=== PATIENT | male | born 1930 | race Caucasian/White ===

== ENCOUNTER → 2016-06-08 | Outpatient (CLI) | payer BC ==
[~2016-06-08] MED LIST: ASPI81TA28 PO; CHOL100010 PO; CRFUDL PO; DIGO0.1267 PO; EAR DROPS OTR; ISOS120T5 PO; LISI5TAB PO; MAGN311C3 PO; PANT40TA PO; SIMV40TA2 PO; TRAM-10 PO
[2016-06-08 11:01] LABS: BASO % 0.4 %; BASO ABS # 0.04 K/uL (0-0.2); COMPLETE YES; EOS % 5.1 %; HEMATOCRIT 47.5 % (42-52); IG% 0.6 %; LYMPH % 17.7 %; LYMPH ABS # 1.76 K/uL (1.2-3.4); MEAN CELL VOLUME 94.8 fL (80-100); MEAN CORPUSCULAR HEMOGLOBIN 31.7 pg (25-34); MEAN CORPUSCULAR HGB CONC 33.5 g/dl (32-36); MEAN PLATELET VOLUME 10.7 fL (7.4-10.4); MONO % 11.8 %; NEUT % 64.4 %; PLATELET COUNT 205 K/uL (130-400); RED BLOOD COUNT 5.01 M/uL (4.7-6.1); WHITE BLOOD COUNT 9.95 K/uL (4.8-10.8)
[2016-06-08 11:13] LABS: BLOOD UREA NITROGEN 29 mg/dl (7-18); BUN/CREATININE RATIO 16.9 (10-20); CALCIUM 8.9 mg/dl (8.5-10.1); CARBON DIOXIDE 28 mmol/L (21-32); CHLORIDE 104 mmol/L (98-107); GLUCOSE 107 mg/dl (70-99); SODIUM 140 mmol/L (136-145)
== END | disposition home or self-care (01) ==
LOC: C.LABBC 08:03
PROVIDERS: ATTEND Internal Medicine Geriatric Medicine
DX: I12.9 Hypertensive chronic kidney disease with stage 1 through stage 4 chronic kidney disease, or unspecified chronic kidney disease (principal); M19.90 Unspecified osteoarthritis, unspecified site; E55.9 Vitamin D deficiency, unspecified; C67.9 Malignant neoplasm of bladder, unspecified; N18.3 Chronic kidney disease, stage 3 (moderate); I48.2 Chronic atrial fibrillation

== ENCOUNTER → 2016-11-01 | Outpatient (CLI) | payer BC ==
[~2016-11-01] MED LIST changes: -PANT40TA PO
== END | disposition home or self-care (01) ==
LOC: C.PATHSPEC 10:43
PROVIDERS: ATTEND Urology
DX: C67.9 Malignant neoplasm of bladder, unspecified (principal)

== ENCOUNTER → 2016-11-06 | Outpatient (CLI) | payer BC ==
[2016-11-06 13:34] LABS: BASO % 0.5 %; BASO ABS # 0.04 K/uL (0-0.2); COMPLETE YES; EOS % 5.5 %; IG% 0.8 %; LYMPH % 16.3 %; LYMPH ABS # 1.24 K/uL (1.2-3.4); MEAN CELL VOLUME 96.8 fL (80-100); MEAN CORPUSCULAR HEMOGLOBIN 31.6 pg (25-34); MEAN CORPUSCULAR HGB CONC 32.6 g/dl (32-36); MEAN PLATELET VOLUME 10.3 fL (7.4-10.4); MONO % 8.9 %; PLATELET COUNT 214 K/uL (130-400); RED BLOOD COUNT 4.75 M/uL (4.7-6.1); WHITE BLOOD COUNT 7.62 K/uL (4.8-10.8)
[2016-11-06 13:51] LABS: ALT/SGPT 29 U/L (12-78); AST/SGOT 22 U/L (15-37); BLOOD UREA NITROGEN 30 mg/dl (7-18); BUN/CREATININE RATIO 16.6 (10-20); CALCIUM 8.7 mg/dl (8.5-10.1); CARBON DIOXIDE 31 mmol/L (21-32); CHLORIDE 106 mmol/L (98-107); CHOLESTEROL 123 mg/dl (0-200); GLUCOSE 126 mg/dl (70-99); POTASSIUM 4.5 mmol/L (3.5-5.1); SODIUM 140 mmol/L (136-145); TRIGLYCERIDES 121 mg/dl (0-150); VERY LOW DENSITY LIPOPROT CALC 24 mg/dl
[2016-11-06 14:02] LABS: ALB/GLOB RATIO 0.9 (0.9-2); ALKALINE PHOSPHATASE 59 U/L (45-117); CHOLESTEROL/HDL RATIO 2.8; HDL CHOLESTEROL 44 mg/dl; LDL CHOLESTEROL CALCULATED 55 mg/dl
== END | disposition home or self-care (01) ==
LOC: C.LABBC 09:24
PROVIDERS: ATTEND Internal Medicine Geriatric Medicine
DX: I25.10 Atherosclerotic heart disease of native coronary artery without angina pectoris (principal); I12.9 Hypertensive chronic kidney disease with stage 1 through stage 4 chronic kidney disease, or unspecified chronic kidney disease; M19.90 Unspecified osteoarthritis, unspecified site; E78.5 Hyperlipidemia, unspecified; R80.9 Proteinuria, unspecified; E55.9 Vitamin D deficiency, unspecified; N18.3 Chronic kidney disease, stage 3 (moderate); L03.90 Cellulitis, unspecified

== ENCOUNTER → 2016-12-28 | Outpatient (CLI) | payer BC | END | disposition home or self-care (01) | LOC: C.LABBC 09:33 | PROVIDERS: ATTEND Internal Medicine Geriatric Medicine | DX: I48.2 Chronic atrial fibrillation (principal) ==

== ENCOUNTER → 2017-02-21 | Outpatient (CLI) | payer BC | END | disposition home or self-care (01) | LOC: C.PATHSPEC 17:11 | PROVIDERS: ATTEND Urology | DX: C67.9 Malignant neoplasm of bladder, unspecified (principal) ==

== ENCOUNTER → 2017-03-13 | Outpatient (CLI) | payer BC ==
[2017-03-13 14:42] LABS: BLOOD UREA NITROGEN 32 mg/dl (7-18); BUN/CREATININE RATIO 19.3 (10-20); CALCIUM 8.7 mg/dl (8.5-10.1); CARBON DIOXIDE 26 mmol/L (21-32); CHLORIDE 104 mmol/L (98-107); CREATININE 1.66 mg/dl (0.60-1.40); GLUCOSE 115 mg/dl (70-99); POTASSIUM 4.7 mmol/L (3.5-5.1); SODIUM 136 mmol/L (136-145)
== END | disposition home or self-care (01) ==
LOC: C.LABBC 10:28
PROVIDERS: ATTEND Internal Medicine Geriatric Medicine
DX: E55.9 Vitamin D deficiency, unspecified (principal); N18.3 Chronic kidney disease, stage 3 (moderate); I12.9 Hypertensive chronic kidney disease with stage 1 through stage 4 chronic kidney disease, or unspecified chronic kidney disease

== ENCOUNTER → 2017-07-11 | Outpatient (CLI) | payer BC ==
[2017-07-11 13:36] LABS: BASO % 0.6 %; BASO ABS # 0.05 K/uL (0-0.2); EOS % 4.9 %; EOS ABS # 0.42 K/uL (0-0.5); HEMATOCRIT 46.6 % (42-52); HEMOGLOBIN 15.3 g/dL (14.0-18.0); IG# 0.07 K/uL (0.00-0.02); LYMPH % 18.6 %; MEAN CELL VOLUME 95.5 fL (80-100); MEAN CORPUSCULAR HEMOGLOBIN 31.4 pg (25-34); MEAN CORPUSCULAR HGB CONC 32.8 g/dl (32-36); MEAN PLATELET VOLUME 10.5 fL (7.4-10.4); MONO ABS # 0.86 K/uL (0.11-0.59); NEUT % 65.1 %; NEUT ABS # 5.58 K/uL (1.4-6.5); PLATELET COUNT 228 K/uL (130-400); RED CELL DISTRIBUTION WIDTH CV 15.5 % (11.5-14.5); WHITE BLOOD COUNT 8.58 K/uL (4.8-10.8)
[2017-07-11 14:12] LABS: ALT/SGPT 28 U/L (12-78); AST/SGOT 25 U/L (15-37); BLOOD UREA NITROGEN 33 mg/dl (7-18); CARBON DIOXIDE 26 mmol/L (21-32); CREATININE 1.71 mg/dl (0.60-1.40); GLUCOSE 155 mg/dl (70-99); POTASSIUM 4.7 mmol/L (3.5-5.1); SODIUM 137 mmol/L (136-145)
== END | disposition home or self-care (01) ==
LOC: C.LABBC 10:29
PROVIDERS: ATTEND Internal Medicine Cardiovascular Disease
DX: I25.10 Atherosclerotic heart disease of native coronary artery without angina pectoris (principal); I12.9 Hypertensive chronic kidney disease with stage 1 through stage 4 chronic kidney disease, or unspecified chronic kidney disease; N18.3 Chronic kidney disease, stage 3 (moderate); M19.90 Unspecified osteoarthritis, unspecified site; R80.9 Proteinuria, unspecified; E55.9 Vitamin D deficiency, unspecified; I25.5 Ischemic cardiomyopathy; Z51.81 Encounter for therapeutic drug level monitoring; Z79.899 Other long term (current) drug therapy

== ENCOUNTER → 2017-07-24 | Outpatient (CLI) | payer BC ==
--- NOTE | 2017-07-24 15:19 | DIAGNOSTIC IMAGING REPORT ---
BRAIN WITHOUT CONTRAST HISTORY: 87 years-old Male R41.81 Age-related cognitive [id number] acute memory loss COMPARISON: None available TECHNIQUE: Multiplanar multisequence MRI of the brain was obtained without contrast. FINDINGS: Large cawpa-lj-hooe combustion analyst localizer images demonstrate no gross abnormality. There is no restricted diffusion to suggest acute or subacute infarction. Midline structures including the corpus callosum, brainstem, optic chiasm and pituitary gland appear unremarkable the sagittal T1 images. No cerebellar tonsillar herniation. Degenerative changes of the cervical spine are noted. 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 Moderate atrophy with ex vacuo ventriculomegaly. Moderate patchy areas of T2/FLAIR prolongation noted within the white matter of the cerebral hemispheres bilaterally suggesting chronic microvascular ischemic changes. No acute intracranial hemorrhage, midline shift, abnormal extra-axial collections or hydrocephalus. 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 Major flow voids at the level of the skull base appear patent. Orbits are symmetric and within normal limits. Mild mucosal thickening of the ethmoid air cells. Trace mastoid effusions. Scalp, calvarium and soft tissues are within normal limits. Mild fluid is noted within the nasopharynx. IMPRESSION: 1. No acute intracranial abnormality. 2. Moderate atrophy with ex vacuo ventriculomegaly and chronic microvascular ischemic changes. The above report was generated using voice recognition software. It may contain grammatical, syntax or spelling errors. Electronically signed by: Norberto Mattson M.D. 07/24/2017 3:17 PM Dictated Date/Time: 07/24/2017 3:12 PM
== END | disposition home or self-care (01) ==
LOC: C.MRIBC 14:25
PROVIDERS: ATTEND Internal Medicine Geriatric Medicine
DX: R41.81 Age-related cognitive decline (principal); G93.89 Other specified disorders of brain; I67.9 Cerebrovascular disease, unspecified

== ENCOUNTER 2018-06-10 10:41 | Inpatient (IN) ==
[2018-06-10] MEDS ORDERED: ALBUT/IPRATROP 3MG/0.5MG NEB 3 ML VIAL INH STA (11:52)
--- NOTE | 2018-06-10 12:01 | XRay Report ---
XR chest 1V portable CLINICAL HISTORY: sob dyspnea COMPARISON STUDY: 06/03/2018 FINDINGS: Mild cardiomegaly. Prior median sternotomy. Increased prominence of pulmonary vasculature. Right pleural effusion slightly increased in volume from the prior study. IMPRESSION: Congestive heart failure with mild increase in volume of a pre-existing right pleural ef fusion. The above report was generated using voice recognition software. It may contain grammatical, syntax or spelling errors. Electronically signed by: Stanford Whitfield M.D. 06/10/2018 11:59 AM
[2018-06-10 12:03] LABS: Basophils # (auto) 0.03 K/uL (0-0.2); Basophils % (auto) 0.3 %; Eosinophils # (auto) 0.22 K/uL (0-0.5); Eosinophils % (auto) 2.5 %; Hematocrit (blood only) 39.8 % (42-52); Hemoglobin 13.1 g/dL (14.0-18.0); Immature Granulocytes # (auto) 0.03 K/uL (0.00-0.02); Immature Granulocytes % (auto) 0.3 %; Lymphocytes # (auto) 0.76 K/uL (1.2-3.4); Lymphocytes % (auto) 8.7 %; Mean Corpuscular Hgb Conc 32.9 g/dL (32-36); Mean Corpuscular Volume 92.6 fL (80-100); Mean Platelet Volume 10.1 fL (7.4-10.4); Monocytes # (auto) 0.69 K/uL (0.11-0.59); Monocytes % (auto) 7.9 %; Neutrophils # (auto) 6.97 K/uL (1.4-6.5); Neutrophils % (auto) 80.3 %; Platelet Count 215 K/uL (130-400); RDW Coefficient of Variation 17.3 % (11.5-14.5); RDW Standard Deviation 57.9 fL (36.4-46.3)
[2018-06-10 12:11] LABS: Albumin Level 2.9 gm/dl (3.4-5.0); BUN Creatinine Ratio 19.1 (10-20); Calcium 8.2 mg/dl (8.5-10.1); Creatinine Clr Calc Pharmacy 30.8 ml/min; Est GFR (African American) 45.7; Est GFR (Non-African American) 39.4; Potassium 4.2 mmol/L (3.5-5.1)
[2018-06-10 12:14] LABS: Albumin Globulin Ratio 0.7 (0.9-2); Bilirubin,Total 0.8 mg/dl (0.2-1); Globulin 4.2 gm/dl (2.5-4.0); Total Protein 7.1 gm/dl (6.4-8.2)
[2018-06-10 12:15] LABS: INR 1.2 (0.9-1.1); Partial Thromboplastin Time 27.4 Seconds (21.0-31.0); Prothrombin Time 12.2 Seconds (9.0-12.0)
[2018-06-10 12:26] LABS: RBC Morphology Unremarkable
[2018-06-10 12:40] LABS: Appearance Urine Clear (Clear); Bacteria Urine Automated Negative (Negative); Bilirubin Urine Negative (Negative); Blood Urine Negative (Negative); Color Urine Dark Yellow; Epithelial Cell Urine Auto >30 /lpf (0-5); Glucose Urine UA Negative (Negative); Ketones Urine Negative (Negative); Leukocyte Esterase Urine 1+ (Negative); Nitrite Urine Negative (Negative); Protein Urine Trace (Negative); Specific Gravity Urine 1.025 (1.000-1.030); Urobilinogen Urine Negative (Negative); WBC Urine Automated >30 /hpf (0-5)
[2018-06-10 12:58] LABS: Influenza A virus by PCR Neg for Influ A (Neg); Influenza B virus by PCR Neg for Influ B (Neg)
[2018-06-10 13:08] LABS: Calcium Oxalate Crystals Urine Present (None Prsent)
[2018-06-10 13:09] LABS: Cast Urine Automated 0 /lpf (0-5); Mucus Urine Present (None Prsent)
[2018-06-10] MEDS ORDERED: FUROSEMIDE 40 MG/4 ML VIAL IV STA (14:12)
--- NOTE | 2018-06-10 14:39 | Emergency Department Note ---
Entered by Cathie Alvarez acting as a scribe for Huseyin Feliciano DO History of Present Illness General Chief complaint: Shortness of Breath/Dyspnea Time Seen by Provider: 06/10/18 11:52 Source: patient and family History of Present Illness Provider complaint: coughing up blood Onset (ago): hour(s) (this morning) Location: chest Maximum Pain Intensity: 0 Quality: + other (coughing up blood) Associated symptoms: + shortness of breath Treatments prior to arrival: other (fluid drained from lung 1 week ago) The patient is an 88 year old male who presents to the Emergency Room with complaints of coughing up blood this morning. Per family, the patient has been short of breath and had fluid drained from his right lung 1 week ago. Per family, over 1,000 CCs was drained. His family states that the patient is to see Dr. Hughes next week to have the fluid checked. His family states that the patient is not on any antibiotics. Per family, the patient usually wears 2.5-3 liters of Oxygen. Home Medications Home Medications Medication Instructions Recorded Confirmed Type aspirin [Aspirin Low Dose] 81 mg PO QAM 01/06/18 06/10/18 History cholecalciferol (vitamin D3) 1,000 unit PO DAILY 01/06/18 06/10/18 History [Vitamin D3] digoxin 0.125 mg PO QAM 01/06/18 06/10/18 History isosorbide mononitrate 120 mg PO QAM 01/06/18 06/10/18 History simvastatin [Zocor] 40 mg PO QPM 01/06/18 06/10/18 History tramadol 100 mg PO BID 05/27/18 06/10/18 History donepezil 5 mg PO QAM 06/10/18 06/10/18 History magnesium chloride [Slow-Mag] 71.5 mg PO QAM 06/10/18 06/10/18 History Allergies Allergy/AdvReac Type Severity Reaction Status Date / Time codeine AdvReac Mild CONFUSION Verified 06/10/18 12:28 Past Med/Surg History Social History Preferred Language: Urdu Communication Ability: Effective Beliefs That Will Affect Care: None marital status: Current Living Situation: Spouse Feels Safe at Home: Yes Smoking Status: Former smoker Hx Alcohol Use: No Hx Substance Use: No Review of Systems See HPI for pertinent positives & negatives. and A total of 10 systems reviewed and were otherwise negative Physical Exam Vital Signs Vital Signs - 24 hr 06/10/18 10:52 06/10/18 11:01 06/10/18 11:33 Temperature 36.6 C Temperature Source Oral Sepsis Recent Fever Within 48 Hours No Sepsis New/Unexplained Change in Mental Status No Sepsis Action Taken by Nursing No Action Required Pulse Rate 84 Pulse Rate [Right Finger] 80 Respiratory Rate 20 18 Respiratory Effort / Characteristics Respiratory Depth Normal Respiratory Pattern Blood Pressure 152/119 H Blood Pressure [Left Arm] 182/93 H Blood Pressure Mean 130 Blood Pressure Mean [Left Arm] 122 Pulse Oximetry 80 L 89 L Oxygen Delivery Method Room Air Nasal Cannula Nasal Cannula Oxygen Flow Rate 5 5 06/10/18 12:12 06/10/18 13:23 06/10/18 13:30 Temperature Temperature Source Sepsis Recent Fever Within 48 Hours Sepsis New/Unexplained Change in Mental Status Sepsis Action Taken by Nursing Pulse Rate Pulse Rate [Right Finger] 74 76 87 Respiratory Rate 24 20 20 Respiratory Effort / Characteristics Non-Labored Non-Labored Respiratory Depth Normal Normal Respiratory Pattern Regular Regular Blood Pressure Blood Pressure [Left Arm] 190/109 H 185/94 H 183/107 H Blood Pressure Mean Blood Pressure Mean [Left Arm] 136 124 132 Pulse Oximetry 91 92 90 Oxygen Delivery Method Nasal Cannula Nasal Cannula Nasal Cannula Oxygen Flow Rate 5 5 5 CONSTITUTIONAL/VITAL SIGNS: Reviewed / noted above. GENERAL: Non-toxic in appearance. INTEGUMENTARY: Warm, dry, and [place]. HEAD: Normocephalic. EYES: without scleral icterus or trauma. ENT/OROPHARYNX: clear and moist. LYMPHADENOPATHY/NECK: Is supple without lymphadenopathy or meningismus. RESPIRATORY: Diminished breath sounds bilaterally. Some rhonchi on the right. CARDIOVASCULAR: Regular rate and rhythm. GI/ABDOMEN: Soft and nontender. No organomegaly or pulsatile mass. No rebound or guarding. Normal bowel sounds. EXTREMITIES: Warm and well perfused. BACK: No CVA tenderness. NEUROLOGICAL: Intact without focal deficits. PSYCHIATRIC: normal affect. MUSCULOSKELETAL: Normally developed with good muscle tone. Course 1146: Past medical records reviewed. The patient was evaluated in room C3, and a complete history and physical examination were performed. 1415: I updated the patient and his family who verbalized agreement and understanding of the treatment plan. 1435: I discussed the patient's case with Dr. Benjamin Fernandes who will evaluate the patient for further management. Consultations Consultation #1: Dr. Benjamin Fernandes Time: 14:35 Administered Medications Discontinued Medications Albuterol (Duoneb) 3 ml INH NOW STA Stop: 06/10/18 11:53 Last Admin: 06/10/18 13:00 Dose: 3 ml Documented by: [id number] Medical Decision Making Differential Diagnosis Differential diagnosis: Etiologies such as infections, reactive airway disease, COPD, pneumonia, pleural effusion, pulmonary edema, ARDS, pneumothorax, CHF, cardiac ischemia, cardiac tamponade, dysrhythmia, anemia, pulmonary embolism, musculoskeletal, gastrointestinal process, as well as others were entertained. Medical Records Attestation: I reviewed the patient's medical records. Home Medications Current Medication List: was personally reviewed by me Laboratory Data Attestation: I reviewed the patient's lab results. Result diagrams: 06/10/18 10:45 06/10/18 10:45 Lab Results 06/10/18 06/10/18 06/10/18 Range/Units 10:45 10:45 10:45 WBC 8.70 (4.8-10.8) K/uL RBC 4.30 L (4.7-6.1) M/uL Hgb 13.1 L (14.0-18.0) g/dL Hct 39.8 L (42-52) % MCV 92.6 (80-100) fL MCH 30.5 (25-34) pg MCHC 32.9 (32-36) g/dL RDW Std Deviation 57.9 H (36.4-46.3) fL RDW Coeff of Cathleen 17.3 H (11.5-14.5) % Plt Count 215 (130-400) K/uL MPV 10.1 (7.4-10.4) fL Immature Gran % (Auto) 0.3 % Neut % (Auto) 80.3 % Lymph % (Auto) 8.7 % Mcduffie % (Auto) 7.9 % Eos % (Auto) 2.5 % Baso % (Auto) 0.3 % Immature Gran # (Auto) 0.03 H (0.00-0.02) K/uL Neut # (Auto) 6.97 H (1.4-6.5) K/uL Lymph # (Auto) 0.76 L (1.2-3.4) K/uL Mcduffie # (Auto) 0.69 H (0.11-0.59) K/uL Eos # (Auto) 0.22 (0-0.5) K/uL Baso # (Auto) 0.03 (0-0.2) K/uL RBC Morphology Unremarkable PT 12.2 H (9.0-12.0) Seconds INR 1.2 H (0.9-1.1) APTT 27.4 (21.0-31.0) Seconds PTT Ratio 1.0 Sodium 139 (136-145) mmol/L Potassium 4.2 (3.5-5.1) mmol/L Chloride 105 (98-107) mmol/L Carbon Dioxide 31 (21-32) mmol/L Anion Gap 3.0 (3-11) BUN 29 H (7-18) mg/dl Creatinine 1.54 H (0.6-1.4) mg/dl Est Cr Clr Drug Dosing 30.8 ml/min Est GFR ( Amer) 45.7 Est GFR (Non-Af Amer) 39.4 BUN/Creatinine Ratio 19.1 (10-20) Glucose 151 H (70-99) mg/dl POC Lactic Acid Abner (0.90-1.70) mmol/L Calcium 8.2 L (8.5-10.1) mg/dl Total Bilirubin 0.8 (0.2-1) mg/dl AST 19 (15-37) U/L ALT 22 (12-78) U/L Alkaline Phosphatase 60 (45-117) U/L Total Protein 7.1 (6.4-8.2) gm/dl Albumin 2.9 L (3.4-5.0) gm/dl Globulin 4.2 H (2.5-4.0) gm/dl Albumin/Globulin Ratio 0.7 L (0.9-2) Urine Color Urine Appearance (Clear) Urine pH (4.5-7.5) Ur Specific [place] (1.000-1.030) Urine Protein (Negative) Urine Glucose (UA) (Negative) Urine Ketones (Negative) Urine Blood (Negative) Urine Nitrite (Negative) Urine Bilirubin (Negative) Urine Urobilinogen (Negative) Ur Leukocyte Esterase (Negative) Urine WBC (Auto) (0-5) /hpf Urine RBC (Auto) (0-4) /hpf U Hyaline Cast (Auto) (0-5) /lpf U Epithel Cells (Auto) (0-5) /lpf Urine Bacteria (Auto) (Negative) Ur Renal Epithelial Cell Calcium Oxalate Crystal (None Prsent) Urine Mucus (None Prsent) Influenza Type A (PCR) (Neg) Influenza Type B (PCR) (Neg) 06/10/18 06/10/18 06/10/18 Range/Units 12:10 12:15 12:43 WBC (4.8-10.8) K/uL RBC (4.7-6.1) M/uL Hgb (14.0-18.0) g/dL Hct (42-52) % MCV (80-100) fL MCH (25-34) pg MCHC (32-36) g/dL RDW Std Deviation (36.4-46.3) fL RDW Coeff of Cathleen (11.5-14.5) % Plt Count (130-400) K/uL MPV (7.4-10.4) fL Immature Gran % (Auto) % Neut % (Auto) % Lymph % (Auto) % Mcduffie % (Auto) % Eos % (Auto) % Baso % (Auto) % Immature Gran # (Auto) (0.00-0.02) K/uL Neut # (Auto) (1.4-6.5) K/uL Lymph # (Auto) (1.2-3.4) K/uL Mcduffie # (Auto) (0.11-0.59) K/uL Eos # (Auto) (0-0.5) K/uL Baso # (Auto) (0-0.2) K/uL RBC Morphology PT (9.0-12.0) Seconds INR (0.9-1.1) APTT (21.0-31.0) Seconds PTT Ratio Sodium (136-145) mmol/L Potassium (3.5-5.1) mmol/L Chloride (98-107) mmol/L Carbon Dioxide (21-32) mmol/L Anion Gap (3-11) BUN (7-18) mg/dl Creatinine (0.6-1.4) mg/dl Est Cr Clr Drug Dosing ml/min Est GFR ( Amer) Est GFR (Non-Af Amer) BUN/Creatinine Ratio (10-20) Glucose (70-99) mg/dl POC Lactic Acid Abner 3.14 H (0.90-1.70) mmol/L Calcium (8.5-10.1) mg/dl Total Bilirubin (0.2-1) mg/dl AST (15-37) U/L ALT (12-78) U/L Alkaline Phosphatase (45-117) U/L Total Protein (6.4-8.2) gm/dl Albumin (3.4-5.0) gm/dl Globulin (2.5-4.0) gm/dl Albumin/Globulin Ratio (0.9-2) Urine Color Dark Yellow Urine Appearance Clear (Clear) Urine pH 5.0 (4.5-7.5) Ur Specific [place] 1.025 (1.000-1.030) Urine Protein Trace H (Negative) Urine Glucose (UA) Negative (Negative) Urine Ketones Negative (Negative) Urine Blood Negative (Negative) Urine Nitrite Negative (Negative) Urine Bilirubin Negative (Negative) Urine Urobilinogen Negative (Negative) Ur Leukocyte Esterase 1+ H (Negative) Urine WBC (Auto) >30 H (0-5) /hpf Urine RBC (Auto) 5-10 H (0-4) /hpf U Hyaline Cast (Auto) 0 (0-5) /lpf U Epithel Cells (Auto) >30 H (0-5) /lpf Urine Bacteria (Auto) Negative (Negative) Ur Renal Epithelial Cell Not Reportable Calcium Oxalate Crystal Present H (None Prsent) Urine Mucus Present H (None Prsent) Influenza Type A (PCR) Neg for Influ A (Neg) Influenza Type B (PCR) Neg for Influ B (Neg) Imaging Data Radiologist's Impression: Radiology results as stated below per my review and the radiologist's interpretation: XR chest 1V portable CLINICAL HISTORY: sob dyspnea COMPARISON STUDY: 06/03/2018 FINDINGS: Mild cardiomegaly. Prior median sternotomy. Increased prominence of pulmonary vasculature. Right pleural effusion slightly increased in volume from the prior study. IMPRESSION: Congestive heart failure with mild increase in volume of a pre-existing right pleural effusion. The above report was generated using voice recognition software. It may contain grammatical, syntax or spelling errors. Electronically signed by: Stanford Whitfield M.D. 06/10/2018 11:59 AM ECG Data Attestation: I personally reviewed and interpreted this ECG as follows: Indication: SOB/dyspnea Rate (beats per minute): 78 Rhythm: atrial fibrillation Findings: + PVC; no ST elevation Blood Pressure Blood Pressure Findings: Elevated blood pressure Blood Pressure Disposition: further management by hospitalist MDM Narrative This is an 88-year-old male who presents to the ED with a chief complaint of an increasing productive cough as well as some blood-tinged sputum. He also complains of increased shortness of breath. The patient has a history of right thoracentesis by Dr. Holder in the recent past. The patient normally uses 3 L of oxygen at home but over the past 24 hours he has required more oxygen. His initial sternal oxygen saturation here was 80% on 3 L. The patient has some mild increased work of breathing and distress. His lactic acid level was elevated 3.14. An EKG shows A. fib which is chronic. Chest x-ray reveals some congestive heart failure and increased volume in the right pleural effusion. CBC was unremarkable. The BUN is 29 the creatinine is 1.54. Flu swab was negative. Urine is contaminated. Based on the patient's symptoms, he was treated with IV Lasix, IV Levaquin as well as a DuoNeb treatment. On reasse ssment, the patient continues to have some respiratory distress but appears stable. He will be seen by the hospitalist for further inpatient evaluation and care. Impression & Plan CHF (congestive heart failure), PNA (pneumonia), Hypoxia Discharge Plan Visit Data Chief Complaint: Shortness of Breath/Dyspnea ED Provider: Huseyin Feliciano Discharge Problem: CHF (congestive heart failure), PNA (pneumonia), Hypoxia Patient Disposition: Being Evaluated by Hospitalist Forms Stand Alone Forms: My [employer] Prescriptions Prescriptions: No Action aspirin [Aspirin Low Dose] 81 mg Tablet,Delayed Release (Dr/Ec) 81 mg PO QAM RF: 0 simvastatin [Zocor] 40 mg Tablet 40 mg PO QPM RF: 0 isosorbide mononitrate 120 mg Tablet Extended Release 24 Hr 120 mg PO QAM RF: 0 digoxin 125 mcg Tablet 0.125 mg PO QAM RF: 0 cholecalciferol (vitamin D3) [Vitamin D3] 1,000 unit Tablet 1,000 unit PO DAILY RF: 0 tramadol 50 mg Tablet 100 mg PO BID RF: 0 donepezil 5 mg Tablet 5 mg PO QAM RF: 0 Slow-Mag 71.5 mg Tablet,Delayed Release (Dr/Ec) 71.5 mg PO QAM RF: 0 Referrals Referrals: Nani Horowitz PA-C [Primary Care Provider] - Discharge Problem: CHF (congestive heart failure) Qualifiers: Heart failure type: unspecified Heart failure chronicity: acute Qualified Code(s): I50.9 - Heart failure, unspecified PNA (pneumonia) Qualifiers: Pneumonia type: due to unspecified organism Laterality: right Lung location: lower lobe of lung Qualified Code(s): J18.1 - Lobar pneumonia, unspecified organism The scribe's documentation has been prepared under my direction and personally reviewed by me in its entirety. I confirm that the note above accurately reflects all work, treatment, procedures, and medical decision making performed by me.
[2018-06-10] MEDS ORDERED: LEVAQUIN 500MG / 100ML D5W IV ONE (15:03)
[2018-06-10] MEDS ORDERED: OPTIRAY 320 125ml IV PRN (15:48)
--- NOTE | 2018-06-10 16:01 | CT Scan Report ---
CT angio chest PE protocol CLINICAL HISTORY: 88 years-old Male presenting with shortness of breath, clinical concern for pulmona ry embolus. TECHNIQUE: Multidetector CT angiography of the chest was performed after administration of intravenou s contrast. 3-D volumetric and/or maximum intensity projection (MIP) images were subsequently reconst ructed for review. IV contrast: 119 mL of Optiray 320. One or more dose lowering techniques were used consistent with the principles of ALARA (as low as reasonably achievable), including automatic expos ure control, mA or kV adjustment to individual patient size, and/or use of iterative reconstruction. COMPARISON: 11/08/2007. CT DOSE (mGy.cm): The estimated cumulative dose is 279.34 mGy.cm. FINDINGS: Terminal Gauger Supervisor topogram: Median sternotomy wires. Right pleural effusion. Cardiomegaly. Pulmonary vasculature: The study is suboptimal for the assessment of the pulmonary vascular tree secondary to respiratory mo tion artifact. No filling defect within the pulmonary arteries to suggest embolus. Main pulmonary art aden is not enlarged. No flattening of the interventricular septum. No intracardiac filling defect. Re flux of contrast into the IVC and hepatic veins. This likely indicates elevated right heart pressure. Remaining chest: Soft tissues: Normal thyroid and thoracic inlet. Scattered mediastinal lymph nodes most prominently i n the right peritracheal region, the largest measuring 11 mm in short axis (series 4 image 189). Smal l bilateral hilar lymph nodes also suggested. Atherosclerosis of the aorta. Multichamber enlargement of the heart. Coronary artery and aortic valve calcification. No pericardial effusion. Moderate to la rge right pleural effusion, which appears loculated. Small simple left pleural effusion. Upper abdome n normal. Lungs and airways: No pneumothorax. Bronchial wall thickening most prevalent in the right lung. Centr al airways grossly patent allowing for the expiratory phase of respiration. Segmental and subsegmenta l airways to the right lower lobe may be occluded or collapsed. Pulmonary arteries enlarged relative to adjacent bronchi. Extensive centrilobular emphysema. Volume loss and extensive consolidation throu ghout the right lower lobe. A lesser degree of volume loss and added density of the right upper lobe. Minimal passive atelectasis of the deep dependent left lower lobe. Respiratory motion artifact degra ophelia evaluation of lung parenchyma for nodules. Musculoskeletal: Degenerative changes of the spine. 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 Advanced degenerative changes of the glenohumeral joints. Sclerosis and irregularity of the endplates at T2-3. IMPRESSION: 1. No evidence of pulmonary embolus. 2. Moderate to large likely loculated right pleural effusion. Parapneumonic effusion not excluded. 3. Extensive consolidation and volume loss in the right lower lobe. Underlying pneumonia or aspirati on suspected. This should be followed to resolution. 4. Significant right lung bronchial wall thickening asymmetric to the left. 5. Small left pleural effusion, which is simple appearing. 6. Evidence of elevated right heart pressure. 7. Borderline mediastinal lymphadenopathy, possibly reactive. 8. Emphysema. 9. Sclerosis and irregularity of endplates at T2-3 is most likely degenerative in etiology with warehouse examiner mitra discitis osteomyelitis considered significantly less likely. Correlate clinically. Electronically signed by: Wes Renee M.D. 06/10/2018 4:00 PM
--- NOTE | 2018-06-10 16:23 | History & Physical Report ---
Date of Service June 10, 2018 Assessment & Plan (1) Pleural effusion: 88 y/o M Hx systolic CHF 30%, CAD, CKD III, HTN, HLD, chronic AF, chronic hypoxia - 3L 02 at home, dementia. Recent admission with R pleural effusion due to CHF and PNM. Presents with worsening SOB and a cough with blood-streaked sputum. He had a coughing spell this AM which elicited some hemoptysis, although he believes this issue has now resolved. He denies CP and could not confirm fevers. A CT of the chest confirmed recurrence of a large R pleural effusion. PNM or aspiration could not additionally be ruled out. 1) Pleural effusion. He does not appear clinically overloaded. Aspiration and PNM could not be ruled out. We will consult thoracic surgery for thoracentesis. We will place the pt on Zosyn pending culture results and will also request a swallow eval. He will remain on an 02 protocol and scheduled nebs. 2) CHF - difficult to tell if this is contributing to the effusion. He is clinically dry so we will hold off on additional diuresis unless his hypoxia worsens. 3) AF - Dig for rate control - not a candidate for anticoagulation 4) Chronic hypoxia - cont 02 protocol 5) CAD - Imdur, Statin, ASA 6) CKD - renal function at baseline Full code Heparin prophylaxis Total time for this admit including review of labs, meds, imaging, records - discussion with pt, family and ER attending - 45 min History of Present Illness Chief Complaint: Cough, SOB Primary Care Provider: Nani Horowitz PA-C 88 y/o M Hx systolic CHF 30%, CAD, CKD III, HTN, HLD, chronic AF, chronic hypoxia - 3L 02 at home, dementia. Recent admission with R pleural effusion due to CHF and PNM. Presents with worsening SOB and a cough with blood-streaked sputum. He had a coughing spell this AM which elicited some hemoptysis, although he believes this issue has now resolved. He denies CP and could not confirm fevers. A CT of the chest confirmed recurrence of a large R pleural effusion. PNM or aspiration could not additionally be ruled out. 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 Does not drink or smoke Family: Noncontributory due to pt age Allergies Allergy/AdvReac Type Severity Reaction Status Date / Time codeine AdvReac Mild CONFUSION Verified 06/10/18 12:28 Home Medications Home Medications Medication Instructions Recorded Confirmed Type aspirin [Aspirin Low Dose] 81 mg PO QAM 01/06/18 06/10/18 History cholecalciferol (vitamin D3) 1,000 unit PO DAILY 01/06/18 06/10/18 History [Vitamin D3] digoxin 0.125 mg PO QAM 01/06/18 06/10/18 History isosorbide mononitrate 120 mg PO QAM 01/06/18 06/10/18 History simvastatin [Zocor] 40 mg PO QPM 01/06/18 06/10/18 History tramadol 100 mg PO BID 05/27/18 06/10/18 History donepezil 5 mg PO QAM 06/10/18 06/10/18 History magnesium chloride [Slow-Mag] 71.5 mg PO QAM 06/10/18 06/10/18 History Past Med/Surg History Social History Preferred Language: Slovak Communication Ability: dementia Corporate Development Analyst Required: No Beliefs That Will Affect Care: None marital status: Current Living Situation: Spouse Other Information That Helps Us Care for You: No Feels Safe at Home: Yes Safety Concerns: Feels Safe At This Time Smoking Status: Former smoker Hx Alcohol Use: No Hx Substance Use: No Review of Systems The pt is a poor historian. Family at bedside provide that he was coughing some blood AM and c/o progressive SOB Physical Exam Vital Signs (Past 24 Hours): Last Vital Signs Temp 36.6 C 06/10/18 10:52 Pulse 79 06/10/18 16:10 Resp 25 H 06/10/18 16:10 BP 185/119 H 06/10/18 16:01 Pulse Ox 92 06/10/18 16:10 Physical Exam: General: Thin, elderly male, AAO x 2 - no distress ENT: No erythema or exudates, no thrush - hard of hearing with aids Eyes: LINDA, EOMI Head and neck: Normocephalic, atraumatic, No JVD, neck is supple. Chest/heart: Nontender, S1,2, iRR, mild systolic murmur Lungs: There is no air entry to the upper mid lung on the R Abdomen: Nontender, nondistended, BS+ Neuro: AAO x 2, speech is clear, no unilateral weakness or loss of sensation, coordination intact Musculoskeletal: No joint inflammation, muscle tenderness, FROM Skin: No acute rashes or ulcers Extremities: No clubbing, cyanosis, edema - pulses + Results & Data Diagnostic Findings CTA chest: 1. No evidence of pulmonary embolus. 2. Moderate to large likely loculated right pleural effusion. Parapneumonic effusion not excluded. 3. Extensive consolidation and volume loss in the right lower lobe. Underlying pneumonia or aspiration suspected. This should be followed to resolution. 4. Significant right lung bronchial wall thickening asymmetric to the left. 5. Small left pleural effusion, which is simple appearing. 6. Evidence of elevated right heart pressure. 7. Borderline mediastinal lymphadenopathy, possibly reactive. 8. Emphysema. 9. Sclerosis and irregularity of endplates at T2-3 is most likely degenerative in etiology with chronic discitis osteomyelitis considered significantly less likely. Correlate clinically.
[2018-06-10] MEDS ORDERED: ALUMINUM/MAGNESIUM SUSP 30 ML UDC PO PRN (18:51)
[2018-06-10] MEDS ORDERED: ONDANSETRON INJ 2 MG/ML 2 ML VIAL IV PRN (18:51)
[2018-06-10] MEDS ORDERED: MAGNESIUM HYDROXIDE SUSP 30 ML UDC PO PRN (18:51)
[2018-06-10] MEDS ORDERED: NITROGLYCERIN SL 0.4 MG/TAB TAB SL PRN (18:51)
[2018-06-10] MEDS ORDERED: LEVALBUTEROL 1.25MG/0.5ML NEB NEB PRN (18:51)
[2018-06-10] MEDS ORDERED: PIPERACILL/TAZOBAC CONSULT ACTIVE PRN (18:51)
[2018-06-10] MEDS ORDERED: POLYETHYLENE (MIRALAX) 17 GM PACK PO PRN (18:51)
[2018-06-10] MEDS: ALBUT/IPRATROP 3MG/0.5MG NEB 3 ML VIAL NEB SCH (21:39)
[2018-06-10] MEDS ORDERED: PIPERACILLIN/TAZOBACTAM 3.375 GM/115 ML BAG IV ONE (22:00)
[2018-06-10] MEDS: TRAMADOL HCL 50 MG TABLET PO SCH (22:05)
[2018-06-10] MEDS: SIMVASTATIN 40 MG TAB PO SCH (22:05)
[2018-06-11] MEDS: PIPERACILLIN/TAZOBACTAM 3.375 GM/115 ML BAG IV SCH ×3 (01:55→20:57)
[2018-06-11] MEDS: ACETAMINOPHEN 325 MG TAB PO PRN (02:04)
[2018-06-11] MEDS: ALBUT/IPRATROP 3MG/0.5MG NEB 3 ML VIAL NEB SCH ×5 (05:32→19:18)
[2018-06-11] MEDS ORDERED: LEVOFLOXACIN/D5W 500 MG/100 ML BAG IV SCH (06:00)
[2018-06-11] MEDS: ASPIRIN 81 MG ECTAB PO SCH (09:53)
[2018-06-11] MEDS: ISOSORBIDE MONO EXTENDED REL 60 MG TABCR PO SCH (09:53)
[2018-06-11] MEDS: DONEPEZIL HCL 5 MG TAB PO SCH (09:53)
[2018-06-11] MEDS: MAGNESIUM CHLORIDE 64MG DELAYED REL TAB PO SCH (09:54)
[2018-06-11] MEDS: TRAMADOL HCL 50 MG TABLET PO SCH ×2 (09:54→21:02)
--- NOTE | 2018-06-11 15:34 | Hospitalist Progress Note ---
Date of Service June 11, 2018 Assessment & Plan (1) Pleural effusion: 88 y/o M Hx systolic CHF 30%, CAD, CKD III, HTN, HLD, chronic AF, chronic hypoxia - 3L 02 at home, dementia 88-year-old white male admitted on June 10, 2018 Recent admission with R pleural effusion due to CHF and PNM. Worsening shortness of breath with recurrent pleural effusion: Home oxygen was only need at nighttime however in recent couple days he required oxygen at daytime Possible aspiration and PNM In previous admission, has cute respiratory failure with hypoxia secondary to pneumonia did not think secondary to a CHF exacerbation. Chronic combined systolic/diastolic CHF EF of 30-35% on echo from 2012. Patient follows with Dr. Miranda Continue current care, Give diet to eat consult thoracic surgery for thoracentesis. Continue Zosyn pending culture results Follow-up speech evaluation regarding swallow Likely chronic CHF clinically dry so we will hold off on additional diuresis unless his hypoxia worsens. hx of AF - Dig for rate control - not a candidate for anticoagulation hx of CAD, cotn Imdur, Statin, ASA CKD - renal function at baseline Full code Heparin prophylaxis Subjective Feeling tired, still need oxygen, mild cough, no sputum, Review of Systems Constitutional: Positive weakness, or fatigue Respiratory: Positive dyspnea on exertion Cardiac: No chest pain, No orthopnea, No PND, Abdomen: No pain, No nausea, No vomiting, No diarrhea, Musculoskeletal: No joint pain, No muscle pain, No swelling, : No dysuria, No urinary frequency, No incontinence, No hematuria Neurologic: No paralysis, No weakness, No numbness/tingling, Psychiatric: No depression symptoms, No anhedonism, No anxiety, Heme: No abnormal bleeding/bruising, No clotting problems, Skin: No rash, No itch, No new/changing skin lesions, N Physical Exam Vital Signs (Past 24 Hours): Last Vital Signs Temp 36.5 C 06/11/18 15:15 Pulse 81 06/11/18 15:15 Resp 20 06/11/18 15:15 BP 130/73 06/11/18 15:15 Pulse Ox 98 06/11/18 15:15
[2018-06-11] MEDS: DIGOXIN 0.125 MG TAB PO SCH (16:43)
[2018-06-11] MEDS: SIMVASTATIN 40 MG TAB PO SCH (20:58)
--- NOTE | 2018-06-11 21:43 | Consultation Report ---
DATE OF CONSULTATION: 06/11/2018 REASON FOR CONSULTATION: Recurrent right pleural effusion. HISTORY OF PRESENT ILLNESS: Parveen Bell is an 88-year-old that I actually know having performed a thoracentesis on his right side about 2 weeks ago on 05/29/2018. At that time, he was drained for 1100 mL of fluid. He improved dramatically after this. His and his daughter were extremely pleased with him. The fluid was benign. We did not see any evidence of infection. His has an LDH of only 53, is a transudate. This may well be related to congestive heart failure. I saw him back in the office about a week ago and he looked better, although he had reaccumulated some fluid. He still felt better, although not as good as he did right after the procedure. I plan to see him back in the office next week with an x-ray of his fluid reaccumulated. We were going to discuss a PleurX catheter. The patient presented, he had episode of hemoptysis and then had increasing coughing and his brought him with EMS last night. His CTA was performed. He had no evidence of pulmonary emboli, but he did have a large homogenous right pleural effusion. There is some question about loculations, but I do not think so. At any rate, I was asked to comment on this pleural fluid. I had a long talk with the patient and his at the bedside today. He looks about the same except he is a bit tachypneic at about 30 breaths per minute. He is eating at this time; however. He does get a bit out of breath when he talks. We had a long talk about this and I explained the options were to observe him, which his states he is not an option because his breathing and coughing has negatively impacted his quality of life. I also stated we could do another thoracentesis, but I do not see the utility and that his fluid came back so quickly. We also discussed a PleurX catheter. Finally, I discussed the possibility of doing a thoracoscopy with a pleurectomy or talc pleurodesis. I feel that would be very aggressive for a man of who will be 89 on his next birthday and has some dementia. His has asked we would put a PleurX catheter in him. We discussed it in detail. PAST MEDICAL HISTORY: 1. Recurrent right pleural effusion. 2. Mild dementia. 3. Coronary artery disease. 4. History of bladder tumor. 5. Ischemic cardiomyopathy. 6. Congestive heart failure. 7. Dyslipidemia. 8. Gastroesophageal reflux disease. 9. Hypertension. 10. Chronic atrial fibrillation. 11. Secondary hyperparathyroidism. 12. Renal insufficiency. PAST SURGICAL HISTORY: 1. Coronary artery bypass grafting. 2. Carotid endarterectomy. 3. Percutaneous transluminal angioplasty and stents. 4. Tonsillectomy. 5. Mastoidectomy. 6. Renal artery angioplasty. MEDICATIONS: 1. Aspirin. 2. Ciprodex. 3. Digoxin. 4. . 5. Isosorbide mononitrate. 6. Lisinopril. 7. Simvastatin. 8. Magnesium. 9. Sucralfate. 10. Tramadol. 11. Vitamin D. ALLERGIES: CODEINE AND DERIVATIVES. SOCIAL HISTORY: The patient lives with his family and they are very supportive. He is to his of many, many years. He quit smoking 30 years ago but smoked up to a pack a day from his teens to his 50s. He is retired, of course. He is not a drinker. FAMILY MEDICAL HISTORY: His mother had coronary artery bypass graft, coronary artery disease and sister with coronary artery disease, as well as a brother. REVIEW OF SYSTEMS: Please see history of present illness. He denies fevers or chills, although he had a cough productive of some yellow sputum. He does wear glasses and he has had no visual or auditory changes. He denies nausea or vomiting and he has a good appetite, is eating well and during this evaluation. He has had no skin breakdown. He has very little in the way of any peripheral edema. PHYSICAL EXAMINATION: GENERAL: This is a thin elderly male who wears glasses. He is disoriented to place and time but not person. He also knows who his is. He actually did know he was in a hospital. He is otherwise alert. HEENT: His sclerae are anicteric. His tongue is midline. NECK: Supple. He has well-healed cervical neck incision. He has no lymphadenopathy. He does have a soft bruit. He has markedly decreased breath sounds on the right. HEART: He has no wheezing or rales. He has an irregularly irregular rhythm of his heart. ABDOMEN: Soft, nontender. He has no obvious focal deficits. ASSESSMENT AND PLAN: Recurrent right pleural effusion. After a long talk with the patient, especially his who is his power of deputy prosecuting attorney, we elected to proceed with insertion of a PleurX catheter. We will do this early in the morning.
[2018-06-12] MEDS: PIPERACILLIN/TAZOBACTAM 3.375 GM/115 ML BAG IV SCH ×3 (04:10→20:20)
[2018-06-12 06:25] LABS: BUN Creatinine Ratio 15.3 (10-20); Creatinine Clr Calc Pharmacy 26.5 ml/min; Est GFR (African American) 43.6; Est GFR (Non-African American) 37.6; Magnesium 1.9 mg/dl (1.8-2.4); Phosphorus 3.6 mg/dl (2.5-4.9); Potassium 3.8 mmol/L (3.5-5.1)
[2018-06-12] MEDS: ALBUT/IPRATROP 3MG/0.5MG NEB 3 ML VIAL NEB SCH ×4 (07:07→19:22)
[2018-06-12] MEDS ORDERED: LIDOCAINE HCL 1% 20 ML VIAL ONE (08:32)
[2018-06-12 08:59] LABS: iSTAT Arterial Blood Gas HCO3 28 meg/L (19-24); iSTAT Arterial Blood Gas pCO2 34 mmHg (35-46); iSTAT Arterial Blood Gas pH 7.53 (7.35-7.45); iSTAT Carbon Dioxide 29 mEq/l (24-31); iSTAT Site Heel Stick
--- NOTE | 2018-06-12 09:18 | XRay Report ---
XR chest 1V portable CLINICAL HISTORY: pleurx catheter placement COMPARISON STUDY: 06/10/2017 FINDINGS: Right basilar drainage catheter placed. Improved aeration right base with a decrease in rig ht effusion. Minimal residual right lateral costophrenic angle. No evidence for pneumothorax. Persistent prominence of pulmonary vasculature. IMPRESSION: 1. Interval placement of right basilar drainage catheter was improved aeration right base. 2. No evidence for pneumothorax. 3. Pulmonary vascular congestion. The above report was generated using voice recognition software. It may contain grammatical, syntax or spelling errors. Electronically signed by: Stanford Whitfield M.D. 06/12/2018 9:16 AM
[2018-06-12] MEDS: ISOSORBIDE MONO EXTENDED REL 60 MG TABCR PO SCH (09:38)
[2018-06-12] MEDS: DONEPEZIL HCL 5 MG TAB PO SCH (09:38)
[2018-06-12] MEDS: ASPIRIN 81 MG ECTAB PO SCH (09:38)
[2018-06-12] MEDS: MAGNESIUM CHLORIDE 64MG DELAYED REL TAB PO SCH (09:39)
[2018-06-12] MEDS: TRAMADOL HCL 50 MG TABLET PO SCH ×2 (09:39→20:27)
--- NOTE | 2018-06-12 09:57 | Operative Report ---
DATE OF OPERATION: 06/12/2018 PREOPERATIVE DIAGNOSIS: Recurrent right pleural effusion. POSTOPERATIVE DIAGNOSIS: Recurrent right pleural effusion. PROCEDURE: Ultrasound-guided insertion of right PleurX catheter. SURGEON: Ryan Hughes MD ANESTHESIA: Local. SPECIFICS OF PROCEDURE: This is an 88-year-old male who has had a right pleural effusion. I tapped for 1100 mL few weeks ago and he felt much better, but then it recurred. I had a long talk with the patient and his family including his daughter and his . I had another long talk yesterday after he had been admitted with increasing cough and shortness of breath. His pulmonary effusion recurred rather quickly. We decided to insert this today. On the morning of 06/12/2018, I placed a PleurX catheter and drained 1450 mL of a yellow serous fluid. He tolerated it well. DESCRIPTION OF PROCEDURE: With the patient in the left lateral decubitus position, right chest was evaluated with an ultrasound. He had a good window at just about the mid axillary line. I prepped this area and after appropriate timeout had been called, a 25-gauge needle with 1% Xylocaine was used to raise the skin wheal and anesthetize the deeper subcutaneous tissues and pleura. Large bore needle went down and we got free flowing fluid and a guidewire was inserted through this without difficulty. The needle was removed. Approximately 12 cm inferior and anterior to this, another skin wheal was raised 25-gauge needle, 1% Xylocaine and 1 cm incision was made at each of the sites. A long needle was used with 1% Xylocaine to anesthetize the subcutaneous tissues between the two and then a tunneler was attached to the PleurX catheter and dragged from the anterior to posterior incision. Tunneler was removed. Introducer sheath with inner cannula was placed over the guidewire posteriorly and then the inner cannula and guidewire removed and the PleurX catheter placed through the peel-away sheath into the pleural cavity, which was then peeled away. Two separate 3-0 silk sutures were used to close the skin posteriorly. Another 2-0 silk suture anteriorly was used to anchor the catheter to the patient's skin. 1450 mL of a romero serous fluid was drained. We really had no bleeding. Antimicrobial dressings were placed after we capped the tube and dressings were placed. A chest x-ray is pending. He tolerated it very well. I attest to the content of the Intraoperative Record and any orders documented therein. Any exceptions are noted below. MARGOD
[2018-06-12 09:59] LABS: Glucose Pleural Fluid 103 mg/dl
[2018-06-12 10:00] LABS: Appearance Pleural Fluid CLEAR; Color Pleural Fluid YELLOW; RBC Pleural Fluid (A) < 3000 /uL; Source Pleural Fluid RIGHT LUNG; WBC Pleural Fluid (A) 361 /uL
[2018-06-12 10:08] LABS: LDH Pleural Fluid 66 U/L; Total Protein Pleural Fluid 1.4 g/dl
[2018-06-12 10:24] LABS: Mononuclear WBC Pleural 96.6 %; Polynuclear WBC Pleural 3.4 %
[2018-06-12] MEDS: ACETAMINOPHEN 325 MG TAB PO PRN ×2 (12:35→16:23)
[2018-06-12] MEDS: DIGOXIN 0.125 MG TAB PO SCH (16:23)
--- NOTE | 2018-06-12 18:00 | Hospitalist Progress Note ---
Date of Service June 12, 2018 Assessment & Plan (1) Pleural effusion: 88 y/o M Hx systolic CHF 30%, CAD, CKD III, HTN, HLD, chronic AF, chronic hypoxia - 3L 02 at home, dementia 88-year-old white male admitted on June 10, 2018 Recent admission with R pleural effusion due to CHF and PNM. Recurrent effusion -Status post Pleurx -Seems to have been deemed CHF related last time, certainly need to be vigilant for any aspiration/pneumonia process, but right now appears stable -Speech therapy eval and treat -No clear indication for antibiotics at this time chronic CHF Continue current care and follow. Atrial fibrillation-rate is under reasonable control, not a candidate for antico agulation CAD-seems asymptomatic, continue Imdur, Statin, ASA CKD - renal function at baseline, continue to follow Full code Heparin at low-dose for DVT prophylaxis Stable for MedSurg, PT/OT eval and treat as far as his overall dispo plan Subjective Feeling about the same, breathing does not really feel better yet. Pleurx was placed by thoracic surgery. Otherwise no new complaints Review of Systems All systems reviewed & are unremarkable except as noted in HPI & below Physical Exam Vital Signs (Past 24 Hours): Last Vital Signs Temp 36.4 C L 06/12/18 15:00 Pulse 86 06/12/18 16:23 Resp 18 06/12/18 15:29 BP 152/80 H 06/12/18 15:00 Pulse Ox 91 06/12/18 15:29 Physical Exam: Awake alert oriented pleasant no distress HEENT normocephalic atraumatic mucous membranes are moist, extremely hard of hearing Cardio distant but regular no clearly noted rubs murmurs gallops Lungs diminished base right no rales rhonchi or wheezes good effort his Pleurx site has a bandage is clean dry and intact Abdomen soft nondistended nontender no masses or organomegaly Extremities no sinus clubbing or edema Neuro other than is hard of hearing shows no deficits Skin no rashes no pallor icterus
[2018-06-12] MEDS: SIMVASTATIN 40 MG TAB PO SCH (20:25)
[2018-06-13] MEDS: PIPERACILLIN/TAZOBACTAM 3.375 GM/115 ML BAG IV SCH ×2 (04:30→11:34)
[2018-06-13] MEDS: ALBUT/IPRATROP 3MG/0.5MG NEB 3 ML VIAL NEB SCH ×4 (07:33→19:00)
[2018-06-13] MEDS: ISOSORBIDE MONO EXTENDED REL 60 MG TABCR PO SCH (07:55)
[2018-06-13] MEDS: DONEPEZIL HCL 5 MG TAB PO SCH (07:55)
[2018-06-13] MEDS: ASPIRIN 81 MG ECTAB PO SCH (07:55)
[2018-06-13] MEDS: TRAMADOL HCL 50 MG TABLET PO SCH ×2 (07:56→20:29)
[2018-06-13] MEDS: MAGNESIUM CHLORIDE 64MG DELAYED REL TAB PO SCH (07:56)
[2018-06-13 09:57] LABS: Basophils # (auto) 0.03 K/uL (0-0.2); Basophils % (auto) 0.3 %; Eosinophils # (auto) 0.61 K/uL (0-0.5); Eosinophils % (auto) 5.6 %; Hematocrit (blood only) 39.3 % (42-52); Immature Granulocytes # (auto) 0.09 K/uL (0.00-0.02); Immature Granulocytes % (auto) 0.8 %; Lymphocytes # (auto) 0.96 K/uL (1.2-3.4); Lymphocytes % (auto) 8.8 %; Mean Corpuscular Hgb Conc 33.1 g/dL (32-36); Mean Corpuscular Volume 91.8 fL (80-100); Mean Platelet Volume 9.2 fL (7.4-10.4); Monocytes # (auto) 0.76 K/uL (0.11-0.59); Monocytes % (auto) 6.9 %; Neutrophils # (auto) 8.51 K/uL (1.4-6.5); Neutrophils % (auto) 77.6 %; Platelet Count 182 K/uL (130-400); RDW Coefficient of Variation 17.5 % (11.5-14.5); RDW Standard Deviation 58.3 fL (36.4-46.3); Red Blood Count 4.28 M/uL (4.7-6.1); White Blood Count 10.96 K/uL (4.8-10.8)
[2018-06-13 10:19] LABS: BUN Creatinine Ratio 13.8 (10-20); Calcium 8.4 mg/dl (8.5-10.1); Creatinine Clr Calc Pharmacy 27.2 ml/min; Est GFR (Non-African American) 38.8; Potassium 3.8 mmol/L (3.5-5.1)
--- NOTE | 2018-06-13 13:36 | Progress Note ---
DATE: 06/13/2018 Mr. Bell is sitting up eating lunch. He and his are both very pleased with how much better he feels. He is still on supplemental oxygen, but on 3 liters, he is 97% sat. I think this can be weaned down further. He has some mild pain in his right chest, although laterally we replaced the tube. He had more pain overnight, but this is improved. His x-ray after we performed procedure looked great. We had essentially all the fluid out, he was drained for 600 mL again this morning. This is a transudate. The cytology is not back yet, but it appears to be a benign process. Recurrent right pleural effusion. Status post PleurX catheter. He responded very well from my standpoint, may be discharged with home care to drain this every day until further orders. I will see him back in the office in 1-2 weeks with an x-ray and we will monitor his output and decrease his frequency of his drainage once his output decreases.
--- NOTE | 2018-06-13 15:40 | Heart Failure Progress Note ---
Date of Service June 13, 2018 Assessment & Plan (1) Systolic CHF with reduced left ventricular function, NYHA class 3: Patient appears compensated and well perfused at this time. His pulmonary symptoms have improved. He does not have much edema. He is not currently on diuretic therapy. Continue to follow with Dr. Hughes for management of his pleural effusions. Recommend daily weights and low sodium diet. Recommend follow up in the heart failure program within 7 days of discharge. (2) Ischemic cardiomyopathy: Patient has a history of ischemic cardiomyopathy. His left ventricular systolic function has decreased to 20-25% on his most recent echocardiogram (May 2018). He is not currently on any guideline based medications. He was on Lisinopril 5 mg in the past but it was stopped last fall due to hypotension. Patient's blood pressure this admission is slightly elevated and may be better tolerated. Consider initiation of Entresto and/or beta margot for evidence based therapy. If he tolerates low dose medications he can be further titrated as an outpatient. (3) Pleural effusion: Now with PleurX catheter. Continue to follow with Dr. Hughes. Subjective Mr Bell is an 88 year old with history of systolic CHF (EF 20-25%), CAD, CKD, HTN, atrial fibrillation, chronic hypoxia, and recurrent pleural effusions who is currently admitted for progressive dyspnea and plueral effusion. He has had multiple admissions and ED visits over the last several months and has been referred to the HF program by Dr. Sandhu. Dr. Hughes performed a ri t thoracentesis a few weeks ago for 1100 mL. Yesterday he placed a PleurX catheter and drained 1450 mL of a yellow serous fluid. I briefly met with the patient and his Johanna today. He is sitting up in a chair and feeling well. His symptoms have improved significantly with PleurX catheter. Dr. Miranda is his primary cutting and boning supervisor. He was last seen in January 2018. Physical Exam Vital Signs (Past 24 Hours): Last Vital Signs Temp 36.3 C L 06/13/18 15:00 Pulse 59 L 06/13/18 15:30 Resp 18 06/13/18 15:30 BP 122/77 06/13/18 15:00 Pulse Ox 95 06/13/18 15:30
[2018-06-13] MEDS: DIGOXIN 0.125 MG TAB PO SCH (16:14)
--- NOTE | 2018-06-13 19:16 | Hospitalist Progress Note ---
Date of Service June 13, 2018 Assessment & Plan (1) Pleural effusion: 88 y/o M Hx systolic CHF 30%, CAD, CKD III, HTN, HLD, chronic AF, chronic hypoxia - 3L 02 at home, dementia 88-year-old white male admitted on June 10, 2018 Recent admission with R pleural effusion due to CHF and PNM. Recurrent effusion -Status post Pleurx -Seems to have been deemed CHF related last time, certainly need to be vigilant for any aspiration/pneumonia process, but right now appears stable -Speech therapy eval and treat to rule out aspiration -Stop antibiotics otherwise chronic systolic CHF -Give trial of Entresto Atrial fibrillation-rate controlled, not a candidate for anticoagulation CAD-asymptomatic, continue Imdur, Statin, ASA CKD - renal function at baseline, continue to follow WeaknessPT/OT ongoing eval and treat, for SNF placement once able. Full code Heparin at low-dose for DVT prophylaxis Dispel to SNF (he prefers to [facility]) once possible. Subjective Breathing better, feeling better, relates to me that he feels like he is getting around his baseline. Whenever I first see him this morning his is not seen him get up and around. Later after visiting him once ORCHARD PRUNER has gotten him up to the bathroom, and physical therapy has worked with him, they both agree that he would be better off going to SNF with a rehab emphasis and she is to go to [facility]. No other new complaints. CHF clinic input greatly appre ciated. Review of Systems All systems reviewed & are unremarkable except as noted in HPI & below Physical Exam Vital Signs (Past 24 Hours): Last Vital Signs Temp 36.3 C L 06/13/18 15:00 Pulse 61 06/13/18 19:00 Resp 16 06/13/18 19:00 BP 122/77 06/13/18 15:00 Pulse Ox 94 06/13/18 19:00 Physical Exam: In general he is awake alert oriented x3 pleasant no distress. He is very hard of hearing. HEENT normocephalic atraumatic mucous membranes are moist. Breathing is unlabored no accessory muscle use good effort. Skin shows no rashes no pallor or icterus. Other than is hard of hearing shows no focal neuro deficits.
[2018-06-13] MEDS: SIMVASTATIN 40 MG TAB PO SCH (20:29)
[2018-06-13] MEDS: SACUBITRIL-VALSARTAN 24-26 MG TAB PO SCH (20:30)
[2018-06-14] MEDS: ALBUT/IPRATROP 3MG/0.5MG NEB 3 ML VIAL NEB SCH ×4 (07:21→19:06)
[2018-06-14] MEDS: DONEPEZIL HCL 5 MG TAB PO SCH (07:52)
[2018-06-14] MEDS: MAGNESIUM CHLORIDE 64MG DELAYED REL TAB PO SCH (07:52)
[2018-06-14] MEDS: SACUBITRIL-VALSARTAN 24-26 MG TAB PO SCH ×2 (07:52→21:11)
[2018-06-14] MEDS: TRAMADOL HCL 50 MG TABLET PO SCH ×2 (07:52→21:12)
[2018-06-14] MEDS: ASPIRIN 81 MG ECTAB PO SCH (07:52)
[2018-06-14] MEDS: ISOSORBIDE MONO EXTENDED REL 60 MG TABCR PO SCH (07:52)
[2018-06-14 08:31] LABS: BUN Creatinine Ratio 16.6 (10-20); Calcium 8.2 mg/dl (8.5-10.1); Creatinine Clr Calc Pharmacy 35.7 ml/min; Est GFR (African American) 62.4; Est GFR (Non-African American) 53.8; Potassium 4.1 mmol/L (3.5-5.1)
--- NOTE | 2018-06-14 10:46 | Progress Note ---
DATE: 06/14/2018 Mr. Bell was seen today on 06/14/2018. He is complaining of some cough when he eats. He has had no fevers. He is on 3 liters with 90% saturations. Plans have been made to send him to a skilled nursing as I think it is appropriate. I evaluated his PleurX catheter today. He drained about 300 mL of serous fluid. It is a transudate. At this point, I would leave the catheter and then drain him daily and we will keep up with this when he is discharged. I will see him back in the office for management of his catheter.
[2018-06-14] MEDS: DIGOXIN 0.125 MG TAB PO SCH (16:07)
--- NOTE | 2018-06-14 18:40 | Hospitalist Progress Note ---
Date of Service June 14, 2018 Assessment & Plan (1) Pleural effusion: 88 y/o M Hx systolic CHF 30%, CAD, CKD III, HTN, HLD, chronic AF, chronic hypoxia - 3L 02 at home, dementia 88-year-old white male admitted on June 10, 2018 Recent admission with R pleural effusion due to CHF and PNM. Recurrent effusion -Status post Pleurx -Seems to have been deemed CHF related last time, certainly need to be vigilant for any aspiration/pneumonia process, but right now appears stable, ongoing med management for CHF -Speech therapy eval and treat to rule out aspiration, input appreciated chronic systolic CHF -Doing well on trial of Entresto Atrial fibrillation-rate controlled, not a candidate for anticoagulation CAD-showing no complaints, continue Imdur, Statin, ASA CKD - renal function actually improved after initiation of Entresto, continue to follow WeaknessPT/OT ongoing eval and treat, for SNF placement once able. (They are looking towards [facility]) Full code Heparin at low-dose for DVT prophylaxis Dispo to SNF ([facility] once possible. Subjective Generally feeling okay. No shortness of breath. No lightheaded or weakness. Awaiting placement at SNF for rehab. Review of Systems All systems reviewed & are unremarkable except as noted in HPI & below Physical Exam Vital Signs (Past 24 Hours): Last Vital Signs Temp 36.4 C L 06/14/18 15:26 Pulse 82 06/14/18 16:07 Resp 18 06/14/18 15:26 BP 94/58 L 06/14/18 15:26 Pulse Ox 93 06/14/18 15:26 Physical Exam: General he is awake alert oriented x3 pleasant no distress. HEENT normocephalic atraumatic mucous membranes moist. Breathing is unlabored no accessory muscle use good effort. Skin shows no rashes no pallor or icterus.
[2018-06-14] MEDS: SIMVASTATIN 40 MG TAB PO SCH (21:11)
[2018-06-15] MEDS: ALBUT/IPRATROP 3MG/0.5MG NEB 3 ML VIAL NEB SCH ×4 (07:13→19:58)
[2018-06-15] MEDS: ASPIRIN 81 MG ECTAB PO SCH (07:46)
[2018-06-15] MEDS: DONEPEZIL HCL 5 MG TAB PO SCH (07:46)
[2018-06-15] MEDS: SACUBITRIL-VALSARTAN 24-26 MG TAB PO SCH ×2 (07:46→20:22)
[2018-06-15] MEDS: ISOSORBIDE MONO EXTENDED REL 60 MG TABCR PO SCH (07:46)
[2018-06-15] MEDS: TRAMADOL HCL 50 MG TABLET PO SCH ×2 (07:47→20:22)
[2018-06-15] MEDS: MAGNESIUM CHLORIDE 64MG DELAYED REL TAB PO SCH (07:47)
--- NOTE | 2018-06-15 12:21 | Progress Note ---
DATE: 06/15/2018 Mr. Bell was seen today. He is really having trouble swallowing. He has been evaluated and is at risk for aspiration. He drained about 300 mL of serous fluid. I would continue draining him daily. The cytology is negative for any malignancy in this fluid. Additionally, while I would continue to drain him daily, I think as the drainage has really gone down and we will be able decrease this to every other day in the near future. MTDD
[2018-06-15] MEDS: DIGOXIN 0.125 MG TAB PO SCH (15:26)
--- NOTE | 2018-06-15 18:42 | Hospitalist Progress Note ---
Date of Service June 15, 2018 Assessment & Plan (1) Pleural effusion: 88 y/o M Hx systolic CHF 30%, CAD, CKD III, HTN, HLD, chronic AF, chronic hypoxia - 3L 02 at home, dementia 88-year-old white male admitted on June 10, 2018 Recent admission with R pleural effusion due to CHF and PNM. Recurrent effusion -Status post Pleurx -Seems to have been deemed CHF related last time, certainly need to be vigilant for any aspiration/pneumonia process, but right now appears stable, ongoing med management for CHF -Speech therapy eval and treat to rule out aspiration, input appreciated chronic systolic CHF -Doing well on trial of Entresto (was going to increase the dose, but with his blood pressures running a bit low, will continue at current dose and titrate up later as possible) Atrial fibrillation-rate controlled, not a candidate for anticoagulation per prior notes. CAD-showing no complaints, continue Imdur (consider reducing to be able to increase dose of Entresto to help CHF), Statin, ASA CKD - renal function actually improved after initiation of Entresto, continue to follow (repeat BMP tomorrow morning) WeaknessPT/OT ongoing eval and treat, for SNF placement once able. (They are looking towards [facility], hopefully can go 06/16/2018) Full code Heparin at low-dose for DVT prophylaxis Dispo to SNF (he prefers to [facility]) once possible. (Hopefully tomorrow) Subjective Feeling pretty good, not weak or lightheaded. Breathing okay. Discussed with thoracic surgery he was also quite pleased with how the patient is doing. Awaiting SNF placement Review of Systems All systems reviewed & are unremarkable except as noted in HPI & below Physical Exam Vital Signs (Past 24 Hours): Last Vital Signs Temp 36.6 C 06/15/18 15:46 Pulse 69 06/15/18 15:46 Resp 20 06/15/18 15:46 BP 104/68 06/15/18 15:46 Pulse Ox 90 06/15/18 15:46 Physical Exam: General he is awake alert oriented x3 pleasant no distress. HEENT moist. Breathing is unlabored no accessory muscle use. Skin shows no rashes no pallor or icterus. He is quite hard of hearing but otherwise no neuro deficits.
[2018-06-15] MEDS: SIMVASTATIN 40 MG TAB PO SCH (20:22)
[2018-06-16 05:47] LABS: Basophils # (auto) 0.03 K/uL (0-0.2); Basophils % (auto) 0.3 %; Eosinophils % (auto) 8.6 %; Hematocrit (blood only) 41.2 % (42-52); Hemoglobin 13.3 g/dL (14.0-18.0); Lymphocytes # (auto) 1.08 K/uL (1.2-3.4); Lymphocytes % (auto) 10.4 %; Mean Corpuscular Hgb Conc 32.3 g/dL (32-36); Mean Corpuscular Volume 92.2 fL (80-100); Mean Platelet Volume 9.7 fL (7.4-10.4); Monocytes % (auto) 10.6 %; Neutrophils # (auto) 7.21 K/uL (1.4-6.5); Neutrophils % (auto) 69.1 %; Platelet Count 220 K/uL (130-400); RDW Coefficient of Variation 17.2 % (11.5-14.5); RDW Standard Deviation 57.3 fL (36.4-46.3); Red Blood Count 4.47 M/uL (4.7-6.1); White Blood Count 10.42 K/uL (4.8-10.8)
[2018-06-16 06:13] LABS: BUN Creatinine Ratio 17.7 (10-20); Calcium 7.9 mg/dl (8.5-10.1); Creatinine Clr Calc Pharmacy 33.7 ml/min; Est GFR (African American) 58.2; Est GFR (Non-African American) 50.2; Potassium 4.7 mmol/L (3.5-5.1)
[2018-06-16] MEDS: ALBUT/IPRATROP 3MG/0.5MG NEB 3 ML VIAL NEB SCH ×4 (06:50→19:15)
[2018-06-16] MEDS: TRAMADOL HCL 50 MG TABLET PO SCH ×2 (08:12→20:47)
[2018-06-16] MEDS: DONEPEZIL HCL 5 MG TAB PO SCH (08:12)
[2018-06-16] MEDS: SACUBITRIL-VALSARTAN 24-26 MG TAB PO SCH ×2 (08:12→20:47)
[2018-06-16] MEDS: ASPIRIN 81 MG ECTAB PO SCH (08:12)
[2018-06-16] MEDS: ISOSORBIDE MONO EXTENDED REL 60 MG TABCR PO SCH (08:12)
[2018-06-16] MEDS: MAGNESIUM CHLORIDE 64MG DELAYED REL TAB PO SCH (08:12)
--- NOTE | 2018-06-16 08:43 | Progress Note ---
DATE: 06/16/2018 Mr. Bell was seen today. He has no complaints at all. His PleurX sites are clean. He was drained for about 250 mL of a serous fluid today. From our standpoint, Mr. Bell can be discharged to an extended care facility or home whenever his primary service feels it is appropriate. We will set him up for drainage. He will be drained daily initially, then we will determine when to decrease the frequency of drainage from the office.
[2018-06-16] MEDS: MEGESTROL ACETATE SUSP 400 MG/10 ML UDC PO SCH (11:40)
[2018-06-16] MEDS: DIGOXIN 0.125 MG TAB PO SCH (15:31)
--- NOTE | 2018-06-16 19:42 | Hospitalist Progress Note ---
Date of Service June 16, 2018 Assessment & Plan (1) Pleural effusion: 88 y/o M Hx systolic CHF 30%, CAD, CKD III, HTN, HLD, chronic AF, chronic hypoxia - 3L 02 at home, dementia 88-year-old white male admitted on June 10, 2018 Recent admission with R pleural effusion due to CHF and PNM. Recurrent effusion -Status post Pleurx, nursing staff reported in the first day was having 1400, then removed 600 removed and then 3oo in 3 days -Seems to have been due to CHF related last time, -Was having a lot of choking and cough, , speech therapy eval and treat to rule out aspiration, diet has been changed Chronic systolic CHF , Doing well on trial of Entresto (was going to increase t he dose, blood pressures running a bit low yesterday, is better today, Atrial fibrillation-rate controlled, not a candidate for anticoagulation per prior notes. CAD-showing no complaints, continue Imdur CKD - renal function actually improved after initiation of Entresto, WeaknessPT/OT ongoing eval and treat, for SNF placement once able. (possible [facility]) full code Heparin at low-dose for DVT prophylaxis Subjective Generally feeling weak, report no appetite, has normal bowel movement, mild cough, is off Cramer catheter which is chronic, Nursing staff report this morning at 300 ml pleural fluid removed from Pleudex cath Review of Systems Constitutional: Positive weakness, or fatigue Respiratory: Occasional cough, no sputum, no wheezing, Cardiac: No chest pain, No orthopnea, No PND, No claudication, No palpitations, Abdomen: No pain, No nausea, No vomiting, No diarrhea, No constipation, No GI bleeding Musculoskeletal: No joint pain, No muscle pain, No swelling, No calf pain, No problem reported : No dysuria, No urinary frequency, Neurologic: No paralysis, No weakness, No numbness/tingling, Psychiatric: No depression symptoms, No anhedonism, No anxiety, Skin: No rash, No itch, No new/changing skin lesions, Physical Exam Vital Signs (Past 24 Hours): Last Vital Signs Temp 36.3 C L 06/16/18 15:26 Pulse 73 06/16/18 19:16 Resp 16 06/16/18 19:16 BP 94/56 L 06/16/18 15:53 Pulse Ox 97 06/16/18 19:16 Physical Exam: General looks frail however awake alert oriented x3 pleasant no distress. HEENT moist. Breathing is unlabored no accessory muscle use. Heart was regular rhythm S1-S2 has no murmur Skin shows no rashes no pallor or icterus. Decreased hearing CN II to XII, Was intact there was no local deficits Results & Data Laboratory Results Laboratory Results - last 24 hr 06/16/18 06/16/18 05:25 05:25 WBC 10.42 RBC 4.47 L Hgb 13.3 L Hct 41.2 L MCV 92.2 MCH 29.8 MCHC 32.3 RDW Std Deviation 57.3 H RDW Coeff of Cathleen 17.2 H Plt Count 220 MPV 9.7 Immature Gran % (Auto) 1.0 Neut % (Auto) 69.1 Lymph % (Auto) 10.4 [place] % (Auto) 10.6 Eos % (Auto) 8.6 Baso % (Auto) 0.3 Immature Gran # (Auto) 0.10 H Neut # (Auto) 7.21 H Lymph # (Auto) 1.08 L [place] # (Auto) 1.10 H Eos # (Auto) 0.90 H Baso # (Auto) 0.03 Sodium 136 Potassium 4.7 Chloride 103 Carbon Dioxide 29 Anion Gap 4.0 BUN 22 H Creatinine 1.26 Est Cr Clr Drug Dosing 33.7 Est GFR ( Amer) 58.2 Est GFR (Non-Af Amer) 50.2 BUN/Creatinine Ratio 17.7 Glucose 87 Calcium 7.9 L Microbiology 06/12/18 08:50 Pleural Fluid Gram Stain - Final 06/12/18 08:50 Pleural Fluid Aerobic and Anaerobic Culture - Preliminary No growth to date. 06/15/18 Unknown Sputum, Expectorated Gram Stain - Final 06/15/18 Unknown Sputum, Expectorated Sputum Culture - Preliminary Light normal jyace present, final report to follow. 06/10/18 12:45 Blood Blood Culture - Final No growth 06/10/18 12:30 Blood Blood Culture - Final No growth
[2018-06-16] MEDS: SIMVASTATIN 40 MG TAB PO SCH (20:47)
[2018-06-17] MEDS: ALBUT/IPRATROP 3MG/0.5MG NEB 3 ML VIAL NEB SCH ×4 (07:27→19:49)
[2018-06-17] MEDS: ISOSORBIDE MONO EXTENDED REL 60 MG TABCR PO SCH (08:17)
[2018-06-17] MEDS: MAGNESIUM CHLORIDE 64MG DELAYED REL TAB PO SCH (08:17)
[2018-06-17] MEDS: ASPIRIN 81 MG ECTAB PO SCH (08:17)
[2018-06-17] MEDS: MEGESTROL ACETATE SUSP 400 MG/10 ML UDC PO SCH (08:18)
[2018-06-17] MEDS: DONEPEZIL HCL 5 MG TAB PO SCH (08:18)
[2018-06-17] MEDS: SACUBITRIL-VALSARTAN 24-26 MG TAB PO SCH ×2 (08:18→21:02)
[2018-06-17] MEDS: TRAMADOL HCL 50 MG TABLET PO SCH ×2 (08:21→21:02)
[2018-06-17 10:13] LABS: BUN Creatinine Ratio 20.8 (10-20); Calcium 8.1 mg/dl (8.5-10.1); Creatinine Clr Calc Pharmacy 38.6 ml/min; Est GFR (African American) 68.6; Est GFR (Non-African American) 59.2; Magnesium 1.8 mg/dl (1.8-2.4); Potassium 3.9 mmol/L (3.5-5.1)
[2018-06-17] MEDS: DIGOXIN 0.125 MG TAB PO SCH (15:34)
--- NOTE | 2018-06-17 18:07 | Hospitalist Progress Note ---
Date of Service June 17, 2018 Assessment & Plan (1) Pleural effusion: 88 y/o M Hx systolic CHF 30%, CAD, CKD III, HTN, HLD, chronic AF, chronic hypoxia - 3L 02 at home, dementia 88-year-old white male admitted on June 10, 2018 Recent admission with R pleural effusion due to CHF and PNM. Recurrent effusion -Status post Pleurx, nursing staff reported in the first day was having 1400, then removed 600 removed and then 3oo in 3 days -Seems to have been due to CHF related last time, -Was having a lot of choking and cough, , speech therapy eval and treat to rule out aspiration, diet has been changed Chronic systolic CHF , Doing well on trial of Entresto (was going to increase t he dose, blood pressures running a bit low yesterday, is better today, Atrial fibrillation-rate controlled, not a candidate for anticoagulation per prior notes. CAD-showing no complaints, continue Imdur CKD - renal function actually improved after initiation of Entresto, WeaknessPT/OT ongoing eval and treat, for SNF placement once able. (possible [facility]) full code Heparin at low-dose for DVT prophylaxis Ready to discharge to skilled nursing Subjective Generally feeling a little better Still has no has normal bowel movement, mild cough, Nursing staff report this morning continues drainage of pleural catheter for pleural fluid introduction of chest surgeon Review of Systems Constitutional: Positive weakness, or fatigue Respiratory: Occasional cough, no sputum, no wheezing, Cardiac: No chest pain, No orthopnea, No PND, No claudication, No palpitations, Abdomen: No pain, No nausea, No vomiting, No diarrhea, No constipation, No GI bleeding Musculoskeletal: No joint pain, No muscle pain, No swelling, No calf pain, No problem reported : No dysuria, No urinary frequency, Neurologic: No paralysis, No weakness, No numbness/tingling, Psychiatric: No depression symptoms, No anhedonism, No anxiety, Skin: No rash, No itch, No new/changing skin lesions, Physical Exam 2 Vital Signs (Past 24 Hours): Last Vital Signs Temp 36.3 C L 06/17/18 16:05 Pulse 82 06/17/18 16:05 Resp 18 06/17/18 16:05 BP 120/58 L 06/17/18 16:59 Pulse Ox 93 06/17/18 16:05 Physical Exam: General looks frail however awake alert oriented x3 pleasant no distress. HEENT moist. Breathing is unlabored no accessory muscle use. Heart was regular rhythm S1-S2 has no murmur Abdomen soft nontender bowel sounds positive, folic acid time place Skin shows no rashes no pallor or icterus. Decreased hearing CN II to XII, Was intact there was no local deficits Results & Data Laboratory Results Laboratory Results - last 24 hr 06/17/18 08:48 Sodium 136 Potassium 3.9 D Chloride 103 Carbon Dioxide 28 Anion Gap 5.0 BUN 23 H Creatinine 1.10 Est Cr Clr Drug Dosing 38.6 Est GFR ( Amer) 68.6 Est GFR (Non-Af Amer) 59.2 BUN/Creatinine Ratio 20.8 H Glucose 111 H Calcium 8.1 L Phosphorus 2.0 L Magnesium 1.8 Microbiology 06/12/18 08:50 Pleural Fluid Gram Stain - Final 06/12/18 08:50 Pleural Fluid Aerobic and Anaerobic Culture - Final No growth 06/15/18 Unknown Sputum, Expectorated Gram Stain - Final 06/15/18 Unknown Sputum, Expectorated Sputum Culture - Final Light normal jayce.
[2018-06-17] MEDS: SIMVASTATIN 40 MG TAB PO SCH (21:02)
[2018-06-18] MEDS: ALBUT/IPRATROP 3MG/0.5MG NEB 3 ML VIAL NEB SCH ×2 (07:14→11:15)
[2018-06-18] MEDS: MAGNESIUM CHLORIDE 64MG DELAYED REL TAB PO SCH (08:37)
[2018-06-18] MEDS: SACUBITRIL-VALSARTAN 24-26 MG TAB PO SCH (08:37)
[2018-06-18] MEDS: ASPIRIN 81 MG ECTAB PO SCH (08:37)
[2018-06-18] MEDS: MEGESTROL ACETATE SUSP 400 MG/10 ML UDC PO SCH (08:37)
[2018-06-18] MEDS: DONEPEZIL HCL 5 MG TAB PO SCH (08:37)
[2018-06-18] MEDS: ISOSORBIDE MONO EXTENDED REL 60 MG TABCR PO SCH (08:37)
[2018-06-18] MEDS: TRAMADOL HCL 50 MG TABLET PO SCH (08:40)
[2018-06-18 09:39] LABS: BUN Creatinine Ratio 20.2 (10-20); Calcium 8.7 mg/dl (8.5-10.1); Creatinine Clr Calc Pharmacy 33.2 ml/min; Est GFR (African American) 57.1; Est GFR (Non-African American) 49.3; Magnesium 1.8 mg/dl (1.8-2.4); Phosphorus 2.2 mg/dl (2.5-4.9); Potassium 4.4 mmol/L (3.5-5.1)
[2018-06-18] MEDS ORDERED: SODIUM PHOSPHATE 3 MMOL/1 ML INFUSION IV STA (09:45)
[2018-06-18] MEDS ORDERED: SODIUM PHOSPHATE 15 MMOL in SODIUM CHLORIDE 0.9% 250 ML IV ONE (10:15)
--- NOTE | 2018-06-18 19:37 | Discharge Summary ---
Date of Service June 18, 2018 Admission HPI Per Admitting Provider 88 y/o M Hx systolic CHF 30%, CAD, CKD III, HTN, HLD, chronic AF, chronic hypoxia - 3L 02 at home, dementia. Recent admission with R pleural effusion due to CHF and PNM. Presents with worsening SOB and a cough with blood-streaked sputum. He had a coughing spell this AM which elicited some hemoptysis, although he believes this issue has now resolved. He denies CP and could not confirm fevers. A CT of the chest confirmed recurrence of a large R pleural effusion. PNM or aspiration could not additionally be ruled out. 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 Does not drink or smoke Family: Noncontributory due to pt age Principal Diagnosis 35 Discharge Data Allergies Allergy/AdvReac Type Severity Reaction Status Date / Time codeine AdvReac Mild CONFUSION Verified 06/10/18 12:28 Consultations 06/10/18 14:32 ED Decision to Admit Stat 06/10/18 18:51 Consult Thoracic Surgery Routine Ordered Studies 06/10/18 14:49 CT angio chest PE protocol Stat Hospital Course (1) Pleural effusion: 88 y/o M Hx systolic CHF 30%, CAD, CKD III, HTN, HLD, chronic AF, chronic hypoxia - 3L 02 at home, dementia 88-year-old white male admitted on June 10, 2018 Recent admission with R pleural effusion due to CHF and PNM. Recurrent effusion -Status post Pleurx, nursing staff is continuing drainage every day -Seems to have been due to CHF related last time, -Was having a lot of choking and cough, , speech therapy eval and treat to rule out aspiration, diet has been changed Chronic systolic CHF , Doing well on trial of Entresto (was going to increase the dose, Blood pressure medicine need to be adjusted, it was a mistake 185/116 in the chart, repeated systolic blood pressure at 120 Atrial fibrillation-rate controlled, not a candidate for anticoagulation per prior notes. CAD-showing no complaints, continue Imdur CKD - renal function actually improved after initiation of Entresto, WeaknessPT/OT ongoing eval and treat, for SNF placement once able. (possible [facility]) full code Heparin at low-dose for DVT prophylaxis Patient has status post Pleurx, drainage fluid remove daily per instruction by Dr. Hughes Patient need to aspiration precaution Total Time Total Time Spent Total Time Spent (In Minutes): 35 Total Time Includes: Examination of the Patient, Discharge Planning, Medication Reconciliation and Communication With Other Providers Discharge Plan Discharge Items Patient Disposition: Transfer [facility] Reason For Visit: lung ca Discharge Diagnosis: lung ca Condition: Fair Discharge Goals: Improve function Activity: Resume your previous activity Lifting: Gradually increase as tolerated Bathing: May shower/bathe in 3 days Exercise/Sports: Gradually increase as tolerated Non-emergency contact: Primary Care Provider and Surgeon Call non-emergency contact if: your symptoms worsen, your pain is not controll ed, your pain is worsening, your temperature is above 101.5, your wound has increased redness and your wound has increased drainage Follow-up/Referrals: Nani Horowitz PA-C [Primary Care Provider] - Ryan Hughes MD, FACS [Family Provider] - (Please, call Dr. Hughes's office to arrange a follow up appointment. *The phone number is [phone].) Rosa Garcai PA-C [Physician] - 06/24/18 2:00 pm (Please, follow up at [facility] / [facility]F Clinic on SaturdayJune 24 at 2:00 pm. *This office is located in [address] of [facility]. The office number is [phone].) Diet: Regular Addtl Provider Instructions: you have Recurrent pleural effusion Status post Pleurx, drainage fluid remove daily per instruction by Dr. Hughes aspiration precaution you need to follow up with your primary care physician in 1 week, your blood pressure medicine possibl eneed to be adjusted - take medication as instructed, never overdose or any misuse, or take with alcohol, because misuse of medicine may cause organ damage or , call me, or your primary care physician if have questions of discharge medicaitons. - call your primary care physician, or go to local emergency room if has any fever/chill, chest pain, shortness of breathing, nausea/vomiting/abdominal pain, facial droop/slurry speech/local weakness, or if has any questions. - fall precaution - diet as instructed - you need to follow up with your subspecialist, such as Dr. Hughes Remove all dressings Saturday morning and shower.Walk!!! Call Dr Hughes ([phone]) and page him for any problems. Call your Primary Care doctor if any of the following symptoms or problems start or get worse: * Shortness of breath or difficulty breathing * Wake up at night short of breath * Chest pain * Cough * Swelling of your hands, feet, or legs * More fatigued or tired with your normal activity * Palpitations - sudden fast heart beats WEIGHT * Weigh yourself every morning after using the bathroom. * Use the same scale. * Wear the same amount of clothing. * Write your weight down on a chart. * Call your Primary Care doctor if you gain more than 2-3 pounds in 1-2 days. MEDICATIONS * Use this discharge instruction sheet for medication instructions. * Take your medications at the time your doctor ordered. * Do not skip a dose of your medicines. * If you miss a dose of medicine, take it as soon as possible, but DO NOT DOUBLE A DOSE. * Read your medicine information when you get home. * Know all of the side effects of your medicine. If in doubt, ask your pharmacist * Call your Primary Care doctor's office if you have any side effects. * Be sure all of your doctors know what medicine and herbs you take (including cold, flu, and herbal medicine). Take the following with you to your follow-up doctor appointments: * Weight Chart * Medication List * List of questions Do not drink excessive alcohol, beer or wine. FOLLOW UP WITH HEART FAILURE PROGRAM/[facility] WITHIN 1 WEEK OF DISCHARGE. [phone]. BRING MEDICATION LIST AND DAILY WEIGHTS TO APPOINTMENT PLEASE! Prescriptions: New megestrol 400 mg/10 mL (40 mg/mL) Suspension 400 mg PO QAM 30 Days Qty: 300 RF: 0 Entresto 24-26 mg Tablet 1 tab PO BID 30 Days Qty: 60 RF: 0 Continued aspirin [Aspirin Low Dose] 81 mg Tablet,Delayed Release (Dr/Ec) 81 mg PO QAM RF: 0 simvastatin [Zocor] 40 mg Tablet 40 mg PO QPM RF: 0 isosorbide mononitrate 120 mg Tablet Extended Release 24 Hr 120 mg PO QAM RF: 0 digoxin 125 mcg Tablet 0.125 mg PO QAM RF: 0 cholecalciferol (vitamin D3) [Vitamin D3] 1,000 unit Tablet 1,000 unit PO DAILY RF: 0 tramadol 50 mg Tablet 100 mg PO BID RF: 0 donepezil 5 mg Tablet 5 mg PO QAM RF: 0 Slow-Mag 71.5 mg Tablet,Delayed Release (Dr/Ec) 71.5 mg PO QAM RF: 0 Stand-Alone Forms: [facility] Discharge Orders: Discharge Order (Routine); Ordered 06/17/18 Ordered By: Fransico Kimball Skilled Items Patient informed of condition?: Yes DNR: No Discharge Level of Care: Skilled Communicable Disease: Yes Discharge Prognosis: Deteriorating Admission Data Admit Date/Time: 06/10/18 16:53 Attending Provider: Fransico Kimball Admit Provider: Usman Benson Primary Care Provider: Nani Horowitz Other Providers: Fransico Kimball ; Usman Benson ; Ryan Hughes ; Karthikeyan Sandhu Service: Medical Other Interventions: Discharge Summary Assessment (RN) Last Done: 06/18/18 11:46 Pending Studies at Discharge: No DC Date/Time DO NOT enter until pt leaves facility: 06/18/18 12:35
== END 2018-06-18 12:35 | DRG 187 ==
LOC: ED 10:41 → 2E 16:53 → SUATTDRO 16:53 → 2E 18:23 → 4W 06-12 15:06
DX: I13.0 Hypertensive heart and chronic kidney disease with heart failure and stage 1 through stage 4 chronic kidney disease, or unspecified chronic kidney disease; Z99.81 Dependence on supplemental oxygen; J96.11 Chronic respiratory failure with hypoxia; Z95.5 Presence of coronary angioplasty implant and graft; F03.90 Unspecified dementia, unspecified severity, without behavioral disturbance, psychotic disturbance, mood disturbance, and anxiety; Z88.5 Allergy status to narcotic agent; I48.2 Chronic atrial fibrillation; I25.10 Atherosclerotic heart disease of native coronary artery without angina pectoris; Z79.82 Long term (current) use of aspirin; Z79.899 Other long term (current) drug therapy; N18.3 Chronic kidney disease, stage 3 (moderate); E78.5 Hyperlipidemia, unspecified; J90 Pleural effusion, not elsewhere classified; Z95.1 Presence of aortocoronary bypass graft; I50.22 Chronic systolic (congestive) heart failure; R53.1 Weakness; Z87.01 Personal history of pneumonia (recurrent); Z79.891 Long term (current) use of opiate analgesic; I25.5 Ischemic cardiomyopathy; Z87.891 Personal history of nicotine dependence

== ENCOUNTER 2019-01-02 10:58 | Inpatient (IN) ==
[2019-01-02 11:59] LABS: Basophils # (auto) 0.04 K/uL (0-0.2); Basophils % (auto) 0.5 %; Eosinophils # (auto) 0.49 K/uL (0-0.5); Hematocrit (blood only) 35.5 % (42-52); Hemoglobin 11.6 g/dL (14.0-18.0); Immature Granulocytes # (auto) 0.07 K/uL (0.00-0.02); Immature Granulocytes % (auto) 0.9 %; Lymphocytes # (auto) 1.29 K/uL (1.2-3.4); Lymphocytes % (auto) 15.8 %; Mean Corpuscular Hemoglobin 30.6 pg (25-34); Mean Corpuscular Hgb Conc 32.7 g/dL (32-36); Mean Corpuscular Volume 93.7 fL (80-100); Mean Platelet Volume 9.6 fL (7.4-10.4); Monocytes % (auto) 12.3 %; Neutrophils # (auto) 5.26 K/uL (1.4-6.5); Neutrophils % (auto) 64.5 %; Platelet Count 243 K/uL (130-400); RDW Coefficient of Variation 15.3 % (11.5-14.5); RDW Standard Deviation 52.4 fL (36.4-46.3); Red Blood Count 3.79 M/uL (4.7-6.1); White Blood Count 8.15 K/uL (4.8-10.8)
[2019-01-02 12:09] LABS: INR 1.1 (0.9-1.1); Prothrombin Time 11.2 Seconds (9.0-12.0)
[2019-01-02 12:17] LABS: Alanine Aminotransferase 14 U/L (12-78); Aspartate Aminotransferase 15 U/L (15-37); BUN Creatinine Ratio 30.2 (10-20); Blood Urea Nitrogen 46 mg/dl (7-18); Calcium 8.6 mg/dl (8.5-10.1); Carbon Dioxide 26 mmol/L (21-32); Chloride 109 mmol/L (98-107); Est GFR (African American) 46.4; Glucose 85 mg/dl (70-99); Magnesium 2.1 mg/dl (1.8-2.4); Potassium 4.6 mmol/L (3.5-5.1); Sodium 141 mmol/L (136-145)
[2019-01-02 12:28] LABS: Albumin Globulin Ratio 0.8 (0.9-2); Alkaline Phosphatase 61 U/L (45-117); Bilirubin,Total 0.4 mg/dl (0.2-1)
--- NOTE | 2019-01-02 12:32 | XRay Report ---
XR chest 1V portable HISTORY: 88 years-old Male weakness acute weakness with hypotension and shortness of breath COMPARISON: Chest radiograph 09/11/2018, CTA chest 06/10/2018 TECHNIQUE: Portable AP view of the chest FINDINGS: Status post removal of the right-sided PICC. Cardiomegaly with coronary arterial stent graft and prio r median sternotomy. Calcified plaque of the thoracic aortic arch. Chronic blunting of the right cost ophrenic angle suggestive of scarring or trace pleural effusion. Chronic interstitial coarsening. Ill -defined right basilar opacities. The left lung is generally clear. No pneumothorax or overt pulmonar y edema. Degenerative changes of the shoulders and spine. IMPRESSION: 1. Cardiomegaly without overt pulmonary edema. 2. Interval removal of the right-sided PICC. 3. Right lung base opacities have progressed from comparison study and are suggestive of atelectasis or pneumonia. Correlate clinically. The above report was generated using voice recognition software. It may contain grammatical, syntax o r spelling errors. Electronically signed by: Norberto Mattson M.D. 01/02/2019 12:31 PM
[2019-01-02 13:21] LABS: Appearance Urine Clear (Clear); Bacteria Urine Automated Negative (Negative); Bilirubin Urine Negative (Negative); Blood Urine Negative (Negative); Color Urine Yellow; Epithelial Cell Urine Auto >30 /lpf (0-5); Glucose Urine UA Negative (Negative); Ketones Urine Negative (Negative); Leukocyte Esterase Urine 2+ (Negative); Nitrite Urine Negative (Negative); Protein Urine Negative (Negative); RBC Urine Automated 0-4 /hpf (0-4); Specific Gravity Urine 1.016 (1.000-1.030); Urobilinogen Urine Negative (Negative); WBC Urine Automated >30 /hpf (0-5)
--- NOTE | 2019-01-02 15:16 | History & Physical Report ---
Date of Service January 02, 2019 Assessment & Plan (1) Hypotension: - SBP 70's in the wound clinic; BP was initially low in the ER then trended up without treatment. - Will hold home Entresto, Lisinopril and Metoprolol. - Continue Imdur but decrease dose from 120 mg to 60 mg daily. - Hold IV fluid hydration if possible in setting of systolic CHF. - U/a negative; CXR concerning for possible PNA; BC are pending. (2) Symptomatic bradycardia: - HR has been in the 40-50's on monitor; his does report episodes of dizziness at home. - Will hold home Metoprolol. - Consult cardiology for evaluation on 01/03/19. (3) Pressure ulcer of right foot, stage 3: - Has been following with the wound clinic. - Will consult wound nurse for evaluation -- dressing was changed this morning, did not remove for exam. - Consider acute infection of right foot with underlying osteomyelitis for source of hypotension if no improvement. (4) Acute renal failure: - Creatinine is mildly elevated, was 1.5; baseline ~1.2-1.3. - Likely pre-renal related to dehydration. - Did not receive IV fluids; will monitor BMP daily. - Holding home ACEI in setting of ARF. (5) Stage III chronic kidney disease: - Renally dose all meds. (6) Coronary artery disease: - S/p CABG x4 in 2001 2001 at [facility]. Saphenous vein to LAD. Saphenous vein to 2 leftcircumflex marginal branches. Saphenous vein graft to PDA. - Cardiac cath in 2002 with stent placed in proximal RCA and left circumflex artery. - Follows with Dr. Miranda; will consult cardiology as an inpatient. - EKG was negative; Trop was 0.020, will trend q6hr x 2. Denies cardiac symptoms at this time. - Holding home ACEI, beta margot; continue statin and aspirin as prescribed. (7) Permanent atrial fibrillation: - A. fib, bradycardic on monitor. - Will hold home Digoxin pending level -- collected in ER. - Holding metoprolol due to bradycardia. - Not currently on anticoagulation therapy due to history of bleeding with bladder. (8) Systolic CHF with reduced left ventricular function, NYHA class 3: - Most recent documented echo in Mar 2013 showed EF 30-35%, multiple severe wall motion abnormalities. - Monitor net I/O's and daily weights. - Does not take daily diuretics; appears hypo to euvolemic. - Hold home Entresto, Lisinopril and Metoprolol in setting of hypotension. (9) Chronic low back pain: - Monitored as outpatient. - Tylenol prn pain. (10) Renal artery stenosis: - S/p left renal artery stent in 2002. (11) Carotid artery stenosis: - S/p bilateral carotid endarterectomies. - Continue ASA and statin. (12) HLD (hyperlipidemia): - Continue statin as prescribed. (13) HTN (hypertension): - Decrease Imdur to 60 mg daily; hold Metoprolol, ACEI and Entresto. (14) DVT prophylaxis: - SCDs; Heparin q12hr. Dispo: Med/surg with tele for evaluation of hypotension/bradycardia. FULL CODE -- discussed with his at bedside. History of Present Illness Chief Complaint: Hypotension Primary Care Provider: Jason Mackenzie MD Mr. Bell is an 88 year old male with past medical history of CAD s/p CABG x 4 in 2001, chronic systolic CHF, A. fib, HTN, HLD, Carotid artery stenosis, bladder cancer, renal artery stenosis, chronic back pain with multiple compression fractures, osteoarthritis, dementia who presented to the wound clinic today for routine evaluation of right foot wound. He has been following with the wound clinic frequently for right foot wound; previous culture was positive for MRSA, Enterococcus and Pseudomonas in August 2018. History was obtained from his , who was present at bedside. She reports his SBP was in the 60's at the wound clinic; she was instructed to bring him to the ER. Pt. has been complaining of dizziness at home and intermittently will put his head down due to symptoms. He also has chills and mild shortness of breath with exertion. He has not reported URI symptoms, headache, cough, chest pain, increased lower extremity edema, abd pain, constipation or diarrhea, dysuria or hematuria. ER course: Blood pressure was initially 78/38; readings improved without IV fluid hydration. U/a was negative. CXR showed right lung base opacities that have progressed from previous studies, concerning for PNA vs. atelectasis. Creatinine level was mildly elevated, other lab work with no significant abnormalities. Will admit for further observation of hypotension and infectious work up. Allergies Allergy/AdvReac Type Severity Reaction Status Date / Time codeine AdvReac Mild CONFUSION Verified 01/02/19 12:16 Home Medications Home Medications Medication Instructions Recorded Confirmed Type aspirin [Aspirin Low Dose] 81 mg PO QAM 01/06/18 01/02/19 History cholecalciferol (vitamin D3) 1,000 unit PO DAILY 01/06/18 01/02/19 History [Vitamin D3] Slow-Mag 71.5 mg PO QAM 06/10/18 01/02/19 History donepezil 5 mg PO QAM 06/10/18 01/02/19 History ciprofloxacin-dexamethasone 2 drp OTIC (EAR) BID 09/11/18 01/02/19 History [Ciprodex] digoxin 125 mcg tablet 125 mcg PO QAM tab 11/11/18 01/02/19 History lisinopril 5 mg tablet 5 mg PO DAILY 11/11/18 01/02/19 History polyethylene glycol 3350 17 8.5 gm PO QAM gm 11/11/18 01/02/19 History gram/dose oral powder triamcinolone acetonide 0.1 % 1 appln TOPICAL BID #1 gm 11/11/18 01/02/19 History topical ointment isosorbide mononitrate ER 120 mg 120 mg PO QAM #90 tab 11/14/18 01/02/19 Rx tablet,extended release 24 hr metoprolol tartrate 25 mg tablet 12.5 mg PO DAILY #30 tab 12/24/18 01/02/19 Rx sacubitril 49 mg-valsartan 51 mg 1 tab PO BID #60 tab 12/24/18 01/02/19 Rx tablet simvastatin 40 mg tablet 40 mg PO DAILY #90 tab 01/01/19 01/02/19 Rx Past Med/Surg History Medical History Permanent atrial fibrillation (Chronic) 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 Has evidence of secondary hyperparathyroidism with elevation of PTH. On Vit D supplementation and >30. Prediabetes Elevated HbA1c at 6.3% (8/18) Bladder tumor (Acute) Followed by urology on surveillance. Sleep apnea Hx of unilateral nephrectomy CHF (congestive heart failure) (Acute) PNA (pneumonia) (Acute) Hypoxia (Acute) Pleural effusion Systolic CHF with reduced left ventricular function, NYHA class 3 Traumatic open wound of left lower leg with delayed healing (Acute) Pressure ulcer of coccygeal region, stage 2 (Chronic) Pressure ulcer of right foot, stage 3 (Chronic) Pressure ulcer of left foot, stage 2 (Chronic) Open wound of leg Renal artery stenosis Ischemic cardiomyopathy Carotid artery stenosis HLD (hyperlipidemia) (Chronic) HTN (hypertension) (Chronic) Osteoarthritis Mild dementia Acute respiratory failure with hypoxia Pneumonia (Acute) Congestive heart failure (CHF) (Chronic 04/02/13) Atrial fibrillation (Acute 01/12/14) Coronary artery disease (Chronic) Bypass graft stenosis (Resolved) Open wound of foot with complication (Acute) bilateral feet Bladder cancer Lumbar compression fracture Surgical History Stented coronary artery (Resolved) H/O right coronary artery stent placement History of right heart catheterization History of tonsillectomy Hx of CABG Hx of mastoidectomy Family History Mother Family history of CABG Coronary heart disease Sister Coronary heart disease Brother Coronary heart disease Social History Preferred Language: Guyanese Communication Ability: Effective Communication Ability Comment: extremely [place], left ear is his good ear Visual Impairment: Partially Limited Hearing Ability: Use of Hearing Aid Library Media Specialist Required: No Beliefs That Will Affect Care: None marital status: Current Living Situation: Spouse Current Living Situation Comment: live in a 1 story ranch, 1 step into the kitchen, glide chair for basement current occupational status: retired Other Information That Helps Us Care for You: No other: comfort keepers in the home 4 hours 5 days a week to assist Feels Safe at Home: Yes Safety Concerns: Feels Safe At This Time Smoking Status: Former smoker Second Hand Exposure: No ; Hx Alcohol Use: No Hx Substance Use: No Other Diet Comment: poor apetite per 's report, lost 40 pounds in the past 7 months during the past year weight has: decreased > 10 lbs Review of Systems Review of Systems: All systems reviewed & are unremarkable except as noted in HPI & below Constitutional: + chills, + fatigue and + weakness; no fever and no anorexia Respiratory: + dyspnea on exertion; no cough, no dyspnea and no wheezing Cardiovascular: + lightheadedness; no chest pain, no palpitations, no syncope and no edema Gastrointestinal: no abdominal pain, no nausea, no vomiting, no constipation and no diarrhea/loose stools Genitourinary: no dysuria, no difficulty urinating and no hematuria Musculoskeletal: no back pain, no joint pain, no myalgia and no body aches Integumentary: + non-healing lesions (Right foot wound ), + skin ulcer and + pruritus (Excoriations noted on bilat LE. ) Neurologic: + dizziness; no gait abnormality, no headache(s), no abnormal speech and no confusion Physical Exam Physical Exam: General: Resting comfortably, no acute distress. HEENT: NC/AT; PERRLA with EOMI; [place] conjunctiva, MMM. No erythema of posterior pharynx Neck: Supple and nontender Cardiac: Irregular, bradycardic Lungs: on 2L via NC; rhonchi and crackles noted in RLL Abdomen: Bowel normoactive X 4; Nontender to palpation Extremities: Warm. No edema present Neuro: No focal weakness; pt is very hard of hearing, difficult to assess full neuro exam. Skin: Excoriations with red lesions noted on bilat LE; did not remove dressing on right foot to visualize wound. Results & Data Vital Signs (Past 12 Hours) Vital Signs Temp Pulse Pulse Resp BP BP Pulse Ox 01/02/19 14:15 56 L 23 117/80 100 01/02/19 12:52 51 L 22 106/62 100 01/02/19 12:51 100 01/02/19 12:17 50 L 23 107/94 01/02/19 11:29 43 L 20 106/46 L 01/02/19 11:04 35.4 C L 82 26 H 122/55 L 90 Laboratory Results 01/02/19 01/02/19 01/02/19 Range/Units 14:50 12:55 11:48 WBC (4.8-10.8) K/uL RBC (4.7-6.1) M/uL Hgb (14.0-18.0) g/dL Hct (42-52) % MCV (80-100) fL MCH (25-34) pg MCHC (32-36) g/dL RDW Std Deviation (36.4-46.3) fL RDW Coeff of Cathleen (11.5-14.5) % Plt Count (130-400) K/uL MPV (7.4-10.4) fL Immature Gran % (Auto) % Neut % (Auto) % Lymph % (Auto) % Gordon % (Auto) % Eos % (Auto) % Baso % (Auto) % Immature Gran # (Auto) (0.00-0.02) K/uL Neut # (Auto) (1.4-6.5) K/uL Lymph # (Auto) (1.2-3.4) K/uL Gordon # (Auto) (0.11-0.59) K/uL Eos # (Auto) (0-0.5) K/uL Baso # (Auto) (0-0.2) K/uL PT (9.0-12.0) Seconds INR (0.9-1.1) Sodium 141 (136-145) mmol/L Potassium 4.6 (3.5-5.1) mmol/L Chloride 109 H (98-107) mmol/L Carbon Dioxide 26 (21-32) mmol/L Anion Gap 6.0 (3-11) BUN 46 H (7-18) mg/dl Creatinine 1.52 H (0.6-1.4) mg/dl Est Cr Clr Drug Dosing Not Reportable Est GFR ( Amer) 46.4 Est GFR (Non-Af Amer) 40.0 BUN/Creatinine Ratio 30.2 H (10-20) Glucose 85 (70-99) mg/dl Calcium 8.6 (8.5-10.1) mg/dl Magnesium 2.1 (1.8-2.4) mg/dl Total Bilirubin 0.4 (0.2-1) mg/dl AST 15 (15-37) U/L ALT 14 (12-78) U/L Alkaline Phosphatase 61 (45-117) U/L Troponin I 0.020 (0-0.045) ng/ml Total Protein 7.0 (6.4-8.2) gm/dl Albumin 3.0 L (3.4-5.0) gm/dl Globulin 4.0 (2.5-4.0) gm/dl Albumin/Globulin Ratio 0.8 L (0.9-2) TSH 3.820 (0.300-4.500) uIu/ml Urine Color Yellow Urine Appearance Clear (Clear) Urine pH 6.0 (4.5-7.5) Ur Specific [place] 1.016 (1.000-1.030) Urine Protein Negative (Negative) Urine Glucose (UA) Negative (Negative) Urine Ketones Negative (Negative) Urine Blood Negative (Negative) Urine Nitrite Negative (Negative) Urine Bilirubin Negative (Negative) Urine Urobilinogen Negative (Negative) Ur Leukocyte Esterase 2+ H (Negative) Urine WBC (Auto) >30 H (0-5) /hpf Urine RBC (Auto) 0-4 (0-4) /hpf U Hyaline Cast (Auto) 1-5 (0-5) /lpf U Epithel Cells (Auto) >30 H (0-5) /lpf Urine Bacteria (Auto) Negative (Negative) Ur Renal Epithelial Cell Not Reportable Digoxin Pending 01/02/19 01/02/19 Range/Units 11:48 11:48 WBC 8.15 (4.8-10.8) K/uL RBC 3.79 L (4.7-6.1) M/uL Hgb 11.6 L (14.0-18.0) g/dL Hct 35.5 L (42-52) % MCV 93.7 (80-100) fL MCH 30.6 (25-34) pg MCHC 32.7 (32-36) g/dL RDW Std Deviation 52.4 H (36.4-46.3) fL RDW Coeff of Cathleen 15.3 H (11.5-14.5) % Plt Count 243 (130-400) K/uL MPV 9.6 (7.4-10.4) fL Immature Gran % (Auto) 0.9 % Neut % (Auto) 64.5 % Lymph % (Auto) 15.8 % Gordon % (Auto) 12.3 % Eos % (Auto) 6.0 % Baso % (Auto) 0.5 % Immature Gran # (Auto) 0.07 H (0.00-0.02) K/uL Neut # (Auto) 5.26 (1.4-6.5) K/uL Lymph # (Auto) 1.29 (1.2-3.4) K/uL Gordon # (Auto) 1.00 H (0.11-0.59) K/uL Eos # (Auto) 0.49 (0-0.5) K/uL Baso # (Auto) 0.04 (0-0.2) K/uL PT 11.2 (9.0-12.0) Seconds INR 1.1 (0.9-1.1) Sodium (136-145) mmol/L Potassium (3.5-5.1) mmol/L Chloride (98-107) mmol/L Carbon Dioxide (21-32) mmol/L Anion Gap (3-11) BUN (7-18) mg/dl Creatinine (0.6-1.4) mg/dl Est Cr Clr Drug Dosing Est GFR ( Amer) Est GFR (Non-Af Amer) BUN/Creatinine Ratio (10-20) Glucose (70-99) mg/dl Calcium (8.5-10.1) mg/dl Magnesium (1.8-2.4) mg/dl Total Bilirubin (0.2-1) mg/dl AST (15-37) U/L ALT (12-78) U/L Alkaline Phosphatase (45-117) U/L Troponin I (0-0.045) ng/ml Total Protein (6.4-8.2) gm/dl Albumin (3.4-5.0) gm/dl Globulin (2.5-4.0) gm/dl Albumin/Globulin Ratio (0.9-2) TSH (0.300-4.500) uIu/ml Urine Color Urine Appearance (Clear) Urine pH (4.5-7.5) Ur Specific [place] (1.000-1.030) Urine Protein (Negative) Urine Glucose (UA) (Negative) Urine Ketones (Negative) Urine Blood (Negative) Urine Nitrite (Negative) Urine Bilirubin (Negative) Urine Urobilinogen (Negative) Ur Leukocyte Esterase (Negative) Urine WBC (Auto) (0-5) /hpf Urine RBC (Auto) (0-4) /hpf U Hyaline Cast (Auto) (0-5) /lpf U Epithel Cells (Auto) (0-5) /lpf Urine Bacteria (Auto) (Negative) Ur Renal Epithelial Cell Digoxin Code Status & VTE Plan Code Status FULL CODE VTE Prophylaxis Plan VTE Prophylaxis will be ordered: Yes Supervising Physician Co-Signing Physician Notes Patient seen and examined with Fatou HOLLINGSWORTH. I agree with her HPI, history, ROS, physical exam and A/P. Case was discussed with her as well as the borrero points in treatment. I personally reviewed the lab work and imaging and other diagnostic studies. Patient was sent to the ED from wound clinic for routine follow up due to hypotension with systolic pressures in the 60's. In the ED systolic pressures in the 70s. Patient was coherent, fully alert the entire time. He and his report that he gets some occasional dizzy spells at home but has not fallen, has not lost consciousness. He denied chest pain or pressure, dyspnea, abd ominal pain. He was not given anything for the hypotension and over the course of two hours his blood pressure corrected spontaneously. When I was seeing the patient he had a BP reading of 140/70. He said that he felt the same as when his BP was in the 70's systolic. He took all his medications in the morning. Of note, he was bradycardic throughout his stay in the ED, rates in the 40's at rest. Noted that he takes low dose metoprolol 12.5mg BID as well as Digoxin. Labs showed mild rise in Cr to 1.5 but otherwise normal for the patient. - Hypotension, bradycardia: would appear to be related to medications, perhaps at this time can titrate back will hold metoprolol and digoxin (check level) and follow HR on monitor will hold Lisinopril 5mg, Entresto, and cut Imdur to 60mg consult cardiology, he follows with Dr. Miranda, want to get their recommendations for discharge - ROBERT on CKD stage III: Cr up to 1.5, baseline closer to 1.0 hold Entresto, Lisinopril does not appear to be dehydrated hold on fluids, allow to drink, check BMP in the AM could be due to transient hypotension PG Care Time/CCT Total # of Minutes Spent Total Time Spent with Patient: Total time spent is greater than 50% in coordination of care (as documented) at patient's floor/unit and/or counseling patient: (1) Carotid artery stenosis Laterality: bilateral Qualified Code(s): I65.23 - Occlusion and stenosis of bilateral carotid arteries (2) Coronary artery disease Associated angina: without angina Coronary Disease-Associated Artery/Lesion type: [place] artery [place] vs. transplanted heart: [place] heart Qualified Code(s): I25.10 - Atherosclerotic heart disease of [place] coronary artery without angina pectoris (3) HLD (hyperlipidemia) Hyperlipidemia type: unspecified Qualified Code(s): E78.5 - Hyperlipidemia, unspecified (4) HTN (hypertension) Hypertension type: essential hypertension Qualified Code(s): I10 - Essential (primary) hypertension (5) Hypotension Hypotension type: unspecified hypotension type Qualified Code(s): I95.9 - Hypotension, unspecified
[2019-01-02] MEDS ORDERED: ACETAMINOPHEN 325 MG TAB PO PRN (16:23)
[2019-01-02] MEDS ORDERED: ONDANSETRON INJ 2 MG/ML 2 ML VIAL IV PRN (16:23)
[2019-01-02] MEDS ORDERED: PATIENT'S HEIGHT AND/OR WEIGHT NEEDED SCH (16:45)
--- NOTE | 2019-01-02 19:00 | Emergency Department Note ---
Entered by Ivana Sullivan acting as a scribe for History of Present Illness General Chief complaint: Hypotension Stated complaint: LOW BP Source: patient History of Present Illness Onset (ago): day(s) (this morning) Severity: severe (70/30) Pain Consistency: + other (episode) Quality: + other (hypotension) Associated symptoms: + denies other symptoms (abdominal pain, dysuria, rhinorrhea, feeling like going to pass out), + shortness of breath and + other (dizzy, low heart rate, being cold all the time); no chest pain, no cough, no headaches and no nausea/vomiting The patient is an 88 year old male who presents to the Emergency Room with complaints of an episode of hypotension starting this morning. The patients states that the patient has been short of breath for some time, but over the past few weeks it has been getting worse. She notes that he easily becomes winded even with slight exertion. She reports that with it, he intermittently sets his head down and complains of being dizzy. She states that today when they went to the wound care center, he told them about this shortness of breath. She reports that when they checked his blood pressure it was 70/30 and they sent him here. She notes that his heart rate was also in the 30s and the lowest she has ever seen it was 50. The patient complains of being cold all the time. The patients notes that the patient is on 2 L at all times of oxygen and did take his medications this morning, including his blood pressure medication. She notes that he recently was taken off Tramadol, but denies any other mediation changes. The patient denies headache, chest pain, abdominal pain, dysuria, nausea, vomiting, cough, rhinorrhea, and feeling like going to pass out. Home Medications Home Medications Medication Instructions Recorded Confirmed Type aspirin [Aspirin Low Dose] 81 mg PO QAM 01/06/18 01/02/19 History cholecalciferol (vitamin D3) 1,000 unit PO DAILY 01/06/18 01/02/19 History [Vitamin D3] Slow-Mag 71.5 mg PO QAM 06/10/18 01/02/19 History donepezil 5 mg PO QAM 06/10/18 01/02/19 History ciprofloxacin-dexamethasone 2 drp OTIC (EAR) BID 09/11/18 01/02/19 History [Ciprodex] digoxin 125 mcg tablet 125 mcg PO QAM tab 11/11/18 01/02/19 History lisinopril 5 mg tablet 5 mg PO DAILY 11/11/18 01/02/19 History polyethylene glycol 3350 17 8.5 gm PO QAM gm 11/11/18 01/02/19 History gram/dose oral powder triamcinolone acetonide 0.1 % 1 appln TOPICAL BID #1 gm 11/11/18 01/02/19 History topical ointment isosorbide mononitrate ER 120 mg 120 mg PO QAM #90 tab 11/14/18 01/02/19 Rx tablet,extended release 24 hr metoprolol tartrate 25 mg tablet 12.5 mg PO DAILY #30 tab 12/24/18 01/02/19 Rx sacubitril 49 mg-valsartan 51 mg 1 tab PO BID #60 tab 12/24/18 01/02/19 Rx tablet simvastatin 40 mg tablet 40 mg PO DAILY #90 tab 01/01/19 01/02/19 Rx Allergies Allergy/AdvReac Type Severity Reaction Status Date / Time codeine AdvReac Mild CONFUSION Verified 01/02/19 12:16 Past Med/Surg History Medical History Permanent atrial fibrillation (Chronic) 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 Has evidence of secondary hyperparathyroidism with elevation of PTH. On Vit D supplementation and >30. Prediabetes Elevated HbA1c at 6.3% (11/23) Bladder tumor (Acute) Followed by urology on surveillance. Sleep apnea Hx of unilateral nephrectomy CHF (congestive heart failure) (Acute) PNA (pneumonia) (Acute) Hypoxia (Acute) Pleural effusion Systolic CHF with reduced left ventricular function, NYHA class 3 Traumatic open wound of left lower leg with delayed healing (Acute) Pressure ulcer of coccygeal region, stage 2 (Chronic) Pressure ulcer of right foot, stage 3 (Chronic) Pressure ulcer of left foot, stage 2 (Chronic) Open wound of leg Renal artery stenosis Ischemic cardiomyopathy Carotid artery stenosis HLD (hyperlipidemia) (Chronic) HTN (hypertension) (Chronic) Osteoarthritis Mild dementia Acute respiratory failure with hypoxia Pneumonia (Acute) Congestive heart failure (CHF) (Chronic 04/02/13) Atrial fibrillation (Acute 01/12/14) Coronary artery disease (Chronic) Bypass graft stenosis (Resolved) Open wound of foot with complication (Acute) bilateral feet Bladder cancer Lumbar compression fracture Surgical History Stented coronary artery (Resolved) H/O right coronary artery stent placement History of right heart catheterization History of tonsillectomy Hx of CABG Hx of mastoidectomy Family History Mother Family history of CABG Coronary heart disease Sister Coronary heart disease Brother Coronary heart disease Social History Preferred Language: Korean Communication Ability: Effective Communication Ability Comment: extremely [id number], left ear is his good ear Visual Impairment: Partially Limited Hearing Ability: Use of Hearing Aid Population Health Coach Required: No Beliefs That Will Affect Care: None marital status: Current Living Situation: Spouse Current Living Situation Comment: live in a 1 story ranch, 1 step into the kitchen, glide chair for basement current occupational status: retired Other Information That Helps Us Care for You: No other: comfort keepers in the home 4 hours 5 days a week to assist Feels Safe at Home: Yes Safety Concerns: Feels Safe At This Time Smoking Status: Former smoker Second Hand Exposure: No ; Hx Alcohol Use: No Hx Substance Use: No Other Diet Comment: poor apetite per 's report, lost 40 pounds in the past 7 months during the past year weight has: decreased > 10 lbs Review of Systems See HPI for pertinent positives & negatives. and A total of 10 systems reviewed and were otherwise negative Physical Exam Vital Signs Vital Signs - 24 hr 01/02/19 11:04 01/02/19 11:29 01/02/19 12:17 Temperature 35.4 C L Temperature Source Oral Sepsis Recent Fever Within 48 Hours No Sepsis New/Unexplained Change in Mental Status No Sepsis Action Taken by Nursing No Action Required Pulse Rate 82 Pulse Rate [Left Finger] 43 L 50 L Pulse Rhythm Regular Pulse Rhythm [Left Finger] Regular Pulse Strength Normal Respiratory Rate 26 H 20 23 Respiratory Effort / Characteristics Non-Labored Non-Labored Respiratory Depth Normal Normal Respiratory Pattern Regular Regular Blood Pressure 122/55 L Blood Pressure [Left Arm] 106/46 L 107/94 Blood Pressure Mean 77 Blood Pressure Mean [Left Arm] 66 98 Blood Pressure Position Sitting Pulse Oximetry 90 Oxygen Delivery Method Nasal Cannula Oxygen Flow Rate 2 01/02/19 12:51 01/02/19 12:52 01/02/19 14:15 Temperature Temperature Source Sepsis Recent Fever Within 48 Hours Sepsis New/Unexplained Change in Mental Status Sepsis Action Taken by Nursing Pulse Rate Pulse Rate [Left Finger] 51 L 56 L Pulse Rhythm Pulse Rhythm [Left Finger] Pulse Strength Respiratory Rate 22 23 Respiratory Effort / Characteristics Non-Labored Non-Labored Respiratory Depth Normal Normal Respiratory Pattern Regular Regular Blood Pressure Blood Pressure [Left Arm] 106/62 117/80 Blood Pressure Mean Blood Pressure Mean [Left Arm] 76 92 Blood Pressure Position Pulse Oximetry 100 100 100 Oxygen Delivery Method Nasal Cannula Nasal Cannula Nasal Cannula Oxygen Flow Rate 2 2 2 01/02/19 15:00 Temperature Temperature Source Sepsis Recent Fever Within 48 Hours Sepsis New/Unexplained Change in Mental Status Sepsis Action Taken by Nursing Pulse Rate Pulse Rate [Left Finger] 64 Pulse Rhythm Pulse Rhythm [Left Finger] Pulse Strength Respiratory Rate 22 Respiratory Effort / Characteristics Non-Labored Respiratory Depth Normal Respiratory Pattern Regular Blood Pressure Blood Pressure [Left Arm] 136/66 Blood Pressure Mean Blood Pressure Mean [Left Arm] 89 Blood Pressure Position Pulse Oximetry 97 Oxygen Delivery Method Nasal Cannula Oxygen Flow Rate 2 GENERAL: sitting up in bed, extremely hard of hearing, on 2L nasal cannula, chronically ill appearing, malnourished EYE EXAM: normal conjunctiva OROPHARYNX: no exudate, no erythema, lips, buccal mucosa, and tongue normal and mucous membranes are moist NECK: supple, no nuchal rigidity, no adenopathy, non-tender LUNGS: Clear to auscultation. Normal chest wall mechanics HEART: Bradycardic, irregularly irregular. ABDOMEN: abdomen soft, non-tender, normo-active bowel sounds, no masses, no rebound or guarding. BACK: Back is symmetrical on inspection and there is no deformity, no midline tenderness, no CVA tenderness. SKIN: no rashes and no bruising UPPER EXTREMITIES: upper extremities are grossly normal. LOWER EXTREMITIES: No pitting edema. Calves equal bilaterally. NEURO EXAM: Normal sensorium, cranial nerves II-XII grossly intact, normal speech, no gross weakness of arms, no gross weakness of legs. Course ED COURSE: Vital signs were reviewed and showed bradycardia and hypotensive. The patients medical record was reviewed The above diagnostic studies were performed and reviewed. ED treatments and interventions as stated above. 1156: The patient was evaluated in room C7. A complete history and physical examination was performed. 1350: Upon reevaluation, the patient is resting comfortably. I discussed my findings with the patient and him understands and agrees with the treatment chris n. Based on the patients age, coexisting illnesses, exam and lab findings the decision to treat as an inpatient was made. The patient remained stable while under my care. The patient will be evaluated for further management. 1359: I discussed the patient's case with Dr. Oli HALL Hospitalist. She will evaluate the patient for further management. Consultations Consultation #1: I discussed the patient's case with Dr. Oli Hernandez. She will evaluate the patient for further management. Time: 13:59 Medical Decision Making Differential Diagnosis Differential diagnoses includes but is not limited to pneumonia, bronchitis, COPD/Asthma exacerbation, pneumothorax, pulmonary embolism, congestive heart failure, acute coronary syndrome Medical Records Attestation: I reviewed the patient's medical records. Home Medications Current Medication List: was personally reviewed by me Laboratory Data Attestation: I reviewed the patient's lab results. Result diagrams: 01/02/19 11:48 01/02/19 11:48 Lab Results 01/02/19 01/02/19 01/02/19 Range/Units 11:48 11:48 11:48 WBC 8.15 (4.8-10.8) K/uL RBC 3.79 L (4.7-6.1) M/uL Hgb 11.6 L (14.0-18.0) g/dL Hct 35.5 L (42-52) % MCV 93.7 (80-100) fL MCH 30.6 (25-34) pg MCHC 32.7 (32-36) g/dL RDW Std Deviation 52.4 H (36.4-46.3) fL RDW Coeff of Cathleen 15.3 H (11.5-14.5) % Plt Count 243 (130-400) K/uL MPV 9.6 (7.4-10.4) fL Immature Gran % (Auto) 0.9 % Neut % (Auto) 64.5 % Lymph % (Auto) 15.8 % Allen % (Auto) 12.3 % Eos % (Auto) 6.0 % Baso % (Auto) 0.5 % Immature Gran # (Auto) 0.07 H (0.00-0.02) K/uL Neut # (Auto) 5.26 (1.4-6.5) K/uL Lymph # (Auto) 1.29 (1.2-3.4) K/uL Allen # (Auto) 1.00 H (0.11-0.59) K/uL Eos # (Auto) 0.49 (0-0.5) K/uL Baso # (Auto) 0.04 (0-0.2) K/uL PT 11.2 (9.0-12.0) Seconds INR 1.1 (0.9-1.1) Sodium 141 (136-145) mmol/L Potassium 4.6 (3.5-5.1) mmol/L Chloride 109 H (98-107) mmol/L Carbon Dioxide 26 (21-32) mmol/L Anion Gap 6.0 (3-11) BUN 46 H (7-18) mg/dl Creatinine 1.52 H (0.6-1.4) mg/dl Est Cr Clr Drug Dosing Not Reportable Est GFR ( Amer) 46.4 Est GFR (Non-Af Amer) 40.0 BUN/Creatinine Ratio 30.2 H (10-20) Glucose 85 (70-99) mg/dl Calcium 8.6 (8.5-10.1) mg/dl Magnesium 2.1 (1.8-2.4) mg/dl Total Bilirubin 0.4 (0.2-1) mg/dl AST 15 (15-37) U/L ALT 14 (12-78) U/L Alkaline Phosphatase 61 (45-117) U/L Troponin I 0.020 (0-0.045) ng/ml Total Protein 7.0 (6.4-8.2) gm/dl Albumin 3.0 L (3.4-5.0) gm/dl Globulin 4.0 (2.5-4.0) gm/dl Albumin/Globulin Ratio 0.8 L (0.9-2) TSH 3.820 (0.300-4.500) uIu/ml Urine Color Urine Appearance (Clear) Urine pH (4.5-7.5) Ur Specific Keystone (1.000-1.030) Urine Protein (Negative) Urine Glucose (UA) (Negative) Urine Ketones (Negative) Urine Blood (Negative) Urine Nitrite (Negative) Urine Bilirubin (Negative) Urine Urobilinogen (Negative) Ur Leukocyte Esterase (Negative) Urine WBC (Auto) (0-5) /hpf Urine RBC (Auto) (0-4) /hpf U Hyaline Cast (Auto) (0-5) /lpf U Epithel Cells (Auto) (0-5) /lpf Urine Bacteria (Auto) (Negative) Ur Renal Epithelial Cell Digoxin (0.8-2.0) ng/ml 01/02/19 01/02/19 Range/Units 12:55 14:50 WBC (4.8-10.8) K/uL RBC (4.7-6.1) M/uL Hgb (14.0-18.0) g/dL Hct (42-52) % MCV (80-100) fL MCH (25-34) pg MCHC (32-36) g/dL RDW Std Deviation (36.4-46.3) fL RDW Coeff of Cathleen (11.5-14.5) % Plt Count (130-400) K/uL MPV (7.4-10.4) fL Immature Gran % (Auto) % Neut % (Auto) % Lymph % (Auto) % Allen % (Auto) % Eos % (Auto) % Baso % (Auto) % Immature Gran # (Auto) (0.00-0.02) K/uL Neut # (Auto) (1.4-6.5) K/uL Lymph # (Auto) (1.2-3.4) K/uL Allen # (Auto) (0.11-0.59) K/uL Eos # (Auto) (0-0.5) K/uL Baso # (Auto) (0-0.2) K/uL PT (9.0-12.0) Seconds INR (0.9-1.1) Sodium (136-145) mmol/L Potassium (3.5-5.1) mmol/L Chloride (98-107) mmol/L Carbon Dioxide (21-32) mmol/L Anion Gap (3-11) BUN (7-18) mg/dl Creatinine (0.6-1.4) mg/dl Est Cr Clr Drug Dosing Est GFR ( Amer) Est GFR (Non-Af Amer) BUN/Creatinine Ratio (10-20) Glucose (70-99) mg/dl Calcium (8.5-10.1) mg/dl Magnesium (1.8-2.4) mg/dl Total Bilirubin (0.2-1) mg/dl AST (15-37) U/L ALT (12-78) U/L Alkaline Phosphatase (45-117) U/L Troponin I (0-0.045) ng/ml Total Protein (6.4-8.2) gm/dl Albumin (3.4-5.0) gm/dl Globulin (2.5-4.0) gm/dl Albumin/Globulin Ratio (0.9-2) TSH (0.300-4.500) uIu/ml Urine Color Yellow Urine Appearance Clear (Clear) Urine pH 6.0 (4.5-7.5) Ur Specific Key[place] 1.016 (1.000-1.030) Urine Protein Negative (Negative) Urine Glucose (UA) Negative (Negative) Urine Ketones Negative (Negative) Urine Blood Negative (Negative) Urine Nitrite Negative (Negative) Urine Bilirubin Negative (Negative) Urine Urobilinogen Negative (Negative) Ur Leukocyte Esterase 2+ H (Negative) Urine WBC (Auto) >30 H (0-5) /hpf Urine RBC (Auto) 0-4 (0-4) /hpf U Hyaline Cast (Auto) 1-5 (0-5) /lpf U Epithel Cells (Auto) >30 H (0-5) /lpf Urine Bacteria (Auto) Negative (Negative) Ur Renal Epithelial Cell Not Reportable Digoxin 1.4 (0.8-2.0) ng/ml Imaging Data Radiologist's Impression: Radiology results as stated below per my review and the radiologist's interpretation: XR chest 1V portable HISTORY: 88 years-old Male weakness acute weakness with hypotension and shortness of breath COMPARISON: Chest radiograph 09/11/2018, CTA chest 06/10/2018 TECHNIQUE: Portable AP view of the chest FINDINGS: Status post removal of the right-sided PICC. Cardiomegaly with coronary arterial stent graft and prior median sternotomy. Calcified plaque of the thoracic aortic arch. Chronic blunting of the right costophrenic angle suggestive of scarring or trace pleural effusion. Chronic interstitial coarsening. Ill-defined right basilar opacities. The left lung is generally clear. No pneumothorax or overt pulmonary edema. Degenerative changes of the shoulders and spine. IMPRESSION: 1. Cardiomegaly without overt pulmonary edema. 2. Interval removal of the right-sided PICC. 3. Right lung base opacities have progressed from comparison study and are suggestive of atelectasis or pneumonia. Correlate clinically. The above report was generated using voice recognition software. It may contain grammatical, syntax or spelling errors. Electronically signed by: Norberto Mattson M.D. 01/02/2019 12:31 PM ECG Data Attestation: I personally reviewed and interpreted this ECG as follows: Indication: SOB/dyspnea Rate (beats per minute): 43 Rhythm: atrial fibrillation Findings: + Q waves and + left axis deviation Comparison ECG Date: from (06/10/2018) Change: the following changes noted (rate slower otherwise unchanged) Blood Pressure Blood Pressure Findings: Low blood pressure Blood Pressure Disposition: further management by hospitalist MDM Narrative Patient is an 88-year-old male presents the ER from the wound care clinic for increased shortness of breath and hypotension. He has a past medical history of CHF, CKD, CAD with bypass and A. fib. Upon presentation he is found to be in A. fib with a heart rate in the 30s. He was placed on the monitor and pads were placed on his chest. EKG showed A. fib with a slow rate. Medications were reviewed and he does take digoxin and metoprolol. BC with mild anemia at 11.6. INR is unremarkable. BMP with a creatinine 1.5. LFTs bilirubin and troponin were negative. TSH unremarkable. UA was negative. Digoxin was 1.4. Chest x- ray without any focal infiltrate. Patient was updated bedside. Patient was given IV fluids. He maintained his blood pressures. He was discussed with the hospitalist and admitted for symptomatic bradycardia. Impression & Plan Symptomatic bradycardia, Hypotension, Shortness of breath, Weakness Discharge Plan Visit Data *Final* Discharge Date/Time: 01/02/19 15:34 Chief Complaint: Hypotension Stated Complaint: LOW BP ED Provider: Karthikeyan Powers Discharge Problem: Symptomatic bradycardia, Hypotension, Shortness of breath, Weakness Patient Disposition: Admitted As Inpatient Discharge Instructions Interventions: ED Discharge Assessment Last Done: 01/02/19 15:34 Discharge Problem: Hypotension Qualifiers: Hypotension type: unspecified hypotension type Qualified Code(s): I95.9 - Hy potension, unspecified The scribe's documentation has been prepared under my direction and personally reviewed by me in its entirety. I confirm that the note above accurately reflects all work, treatment, procedures, and medical decision making performed by me.
[2019-01-02] MEDS: HEPARIN SOD 5,000 UNIT/0.5 ML VIAL SQ SCH (21:36)
[2019-01-03 05:52] LABS: Hematocrit (blood only) 34.8 % (42-52); Hemoglobin 11.2 g/dL (14.0-18.0); Mean Corpuscular Hgb Conc 32.2 g/dL (32-36); Mean Corpuscular Volume 93.3 fL (80-100); Mean Platelet Volume 9.7 fL (7.4-10.4); Platelet Count 231 K/uL (130-400); RDW Coefficient of Variation 15.3 % (11.5-14.5); RDW Standard Deviation 51.9 fL (36.4-46.3); Red Blood Count 3.73 M/uL (4.7-6.1); White Blood Count 5.77 K/uL (4.8-10.8)
[2019-01-03 06:23] LABS: Albumin Level 2.7 gm/dl (3.4-5.0); BUN Creatinine Ratio 29.5 (10-20); Calcium 8.5 mg/dl (8.5-10.1); Creatinine Clr Calc Pharmacy 29.7 ml/min; Est GFR (African American) 50.8; Est GFR (Non-African American) 43.9; Potassium 4.7 mmol/L (3.5-5.1)
[2019-01-03 06:26] LABS: Albumin Globulin Ratio 0.8 (0.9-2); Bilirubin,Total 0.7 mg/dl (0.2-1); Globulin 3.4 gm/dl (2.5-4.0); Total Protein 6.1 gm/dl (6.4-8.2)
[2019-01-03] MEDS: HEPARIN SOD 5,000 UNIT/0.5 ML VIAL SQ SCH ×2 (08:57→20:07)
[2019-01-03] MEDS: DONEPEZIL HCL 5 MG TAB PO SCH (08:58)
[2019-01-03] MEDS: POLYETHYLENE (MIRALAX) 17 GM PACK PO SCH (08:58)
[2019-01-03] MEDS: SIMVASTATIN 40 MG TAB PO SCH (08:58)
[2019-01-03] MEDS: ASPIRIN 81 MG ECTAB PO SCH (08:58)
[2019-01-03] MEDS ORDERED: ISOSORBIDE MONO EXTENDED REL 60 MG TABCR PO SCH (09:00)
--- NOTE | 2019-01-03 11:05 | Hospitalist Progress Note ---
Date of Service January 03, 2019 Assessment & Plan (1) Hypotension: - SBP 70's in the wound clinic; BP was improving, now trended back down to 90's. - Hold home Entresto, Lisinopril and Metoprolol; will also hold Imdur this morning -- initially planned to decrease from 120 mg to 60 mg daily. - Holding IV fluid hydration in setting of systolic CHF. - U/a negative; BC pending to rule out infection. (2) Symptomatic bradycardia: - HR has been in the 40-50's on monitor, did drop as low as 30's overnight; his does report episodes of dizziness at home. - Holding Metoprolol; will d/c home Digoxin. - Consulting cardiology for evaluation, appreciate input. (3) Pressure ulcer of right foot, stage 3: - Has been following with the wound clinic. - Consult wound nurse for evaluation -- dressing was changed on 01/02, did not remove for exam. - Consider acute infection of right foot with underlying osteomyelitis for source of hypotension if no improvement. (4) Acute renal failure: - Creatinine mildly elevated, 1.4 this morning; baseline ~1.2-1.3. - Likely pre-renal related to dehydration. - Did not receive IV fluids due to systolic CHF. - Holding home ACEI and Entresto in setting of ARF. (5) Stage III chronic kidney disease: - Renally dose all meds. (6) Coronary artery disease: - S/p CABG x4 in [address] [facility]. Saphenous vein to LAD. Saphenous vein to 2 left circumflex marginal branches. Saphenous vein graft to PDA. - Cardiac cath in 2002 with stent placed in proximal RCA and left circumflex artery. - Follows with Dr. Miranda; consulting cardiology as an inpatient. - EKG was negative; Trop was 0.020 then trended down. - Holding home ACEI, beta margot; continue statin and aspirin as prescribed. (7) Permanent atrial fibrillation: - A. fib, bradycardic (as low as 30's) on monitor. - Dig level was WNL; will d/c med per cardiology. - Hold metoprolol due to bradycardia. - Not currently on anticoagulation therapy due to history of bleeding with bladder. (8) Systolic CHF with reduced left ventricular function, NYHA class 3: - Most recent documented echo in Mar 2013 showed EF 30-35%, multiple severe wall motion abnormalities. - Monitor net I/O's and daily weights. - Does not take daily diuretics; appears hypovolemic on exam. - Hold home Entresto, Lisinopril and Metoprolol in setting of hypotension - plan to d/c ACEI at discharge, continue Entresto. (9) Chronic low back pain: - Monitored as outpatient. - Tylenol prn pain. (10) Renal artery stenosis: - S/p left renal artery stent in 2002. (11) Carotid artery stenosis: - S/p bilateral carotid endarterectomies. - Continue ASA and statin. (12) HLD (hyperlipidemia): - Continue statin as prescribed. (13) HTN (hypertension): - Hold Metoprolol, ACEI, Imdur and Entresto. (14) Anemia: - Has been anemic, hgb ~11-12 at baseline. - May be related to anemia of chronic disease in setting of CKD stage III. - Will continue to monitor; consider outpatient work up along with iron studies. (15) DVT prophylaxis: - SCDs; Heparin q12hr. Dispo: Evaluation of hypotension/bradycardia. FULL CODE -- discussed with his at bedside on admission. Subjective Pt. is very hard of hearing, difficult to obtain history. He denies chest pain, SOB, palpitations, dizziness. Review of Systems Review of Systems: All systems reviewed & are unremarkable except as noted in HPI & below Constitutional: no fever, no chills, no fatigue, no weakness and no anorexia Respiratory: no cough, no dyspnea, no dyspnea on exertion and no wheezing Cardiovascular: no chest pain, no palpitations and no edema Gastrointestinal: no abdominal pain, no nausea, no vomiting and no constipati on Genitourinary: no difficulty urinating Musculoskeletal: no back pain and no joint pain Integumentary: no non-healing lesions Physical Exam Physical Exam: General: Resting comfortably HEENT: NC/AT; PERRLA with EOMI; [place] conjunctiva, MMM. No erythema of posterior pharynx Neck: Supple and nontender Cardiac: bradycardic, irregular. Lungs: CTA bilaterally Abdomen: Bowel normoactive X 4; Nontender to palpation Extremities: Warm. No edema present Neuro: No focal weakness Skin: No rash Results & Data Vital Signs (Past 12 Hours) Vital Signs Temp Pulse Resp BP Pulse Ox 09/28/19 04:00 36.4 C L 51 L 18 91/56 L 93 01/02/19 23:26 36.5 C 56 L 16 90/52 L 100 Laboratory Results 01/03/19 01/03/19 01/03/19 Range/Units 05:27 05:27 00:13 WBC 5.77 (4.8-10.8) K/uL RBC 3.73 L (4.7-6.1) M/uL Hgb 11.2 L (14.0-18.0) g/dL Hct 34.8 L (42-52) % MCV 93.3 (80-100) fL MCH 30.0 (25-34) pg MCHC 32.2 (32-36) g/dL RDW Std Deviation 51.9 H (36.4-46.3) fL RDW Coeff of Cathleen 15.3 H (11.5-14.5) % Plt Count 231 (130-400) K/uL MPV 9.7 (7.4-10.4) fL Immature Gran % (Auto) % Neut % (Auto) % Lymph % (Auto) % Casey % (Auto) % Eos % (Auto) % Baso % (Auto) % Immature Gran # (Auto) (0.00-0.02) K/uL Neut # (Auto) (1.4-6.5) K/uL Lymph # (Auto) (1.2-3.4) K/uL Casey # (Auto) (0.11-0.59) K/uL Eos # (Auto) (0-0.5) K/uL Baso # (Auto) (0-0.2) K/uL PT (9.0-12.0) Seconds INR (0.9-1.1) Sodium 143 (136-145) mmol/L Potassium 4.7 (3.5-5.1) mmol/L Chloride 112 H (98-107) mmol/L Carbon Dioxide 26 (21-32) mmol/L Anion Gap 5.0 (3-11) BUN 42 H (7-18) mg/dl Creatinine 1.41 H (0.6-1.4) mg/dl Est Cr Clr Drug Dosing 29.7 Est GFR ( Amer) 50.8 Est GFR (Non-Af Amer) 43.9 BUN/Creatinine Ratio 29.5 H (10-20) Glucose 79 (70-99) mg/dl Calcium 8.5 (8.5-10.1) mg/dl Magnesium 2.0 (1.8-2.4) mg/dl Total Bilirubin 0.7 (0.2-1) mg/dl AST 18 (15-37) U/L ALT 13 (12-78) U/L Alkaline Phosphatase 56 (45-117) U/L Troponin I 0.017 (0-0.045) ng/ml Total Protein 6.1 L (6.4-8.2) gm/dl Albumin 2.7 L (3.4-5.0) gm/dl Globulin 3.4 (2.5-4.0) gm/dl Albumin/Globulin Ratio 0.8 L (0.9-2) TSH (0.300-4.500) uIu/ml Urine Color Urine Appearance (Clear) Urine pH (4.5-7.5) Ur Specific [place] (1.000-1.030) Urine Protein (Negative) Urine Glucose (UA) (Negative) Urine Ketones (Negative) Urine Blood (Negative) Urine Nitrite (Negative) Urine Bilirubin (Negative) Urine Urobilinogen (Negative) Ur Leukocyte Esterase (Negative) Urine WBC (Auto) (0-5) /hpf Urine RBC (Auto) (0-4) /hpf U Hyaline Cast (Auto) (0-5) /lpf U Epithel Cells (Auto) (0-5) /lpf Urine Bacteria (Auto) (Negative) Ur Renal Epithelial Cell Digoxin (0.8-2.0) ng/ml 01/02/19 01/02/19 01/02/19 Range/Units 18:47 14:50 12:55 WBC (4.8-10.8) K/uL RBC (4.7-6.1) M/uL Hgb (14.0-18.0) g/dL Hct (42-52) % MCV (80-100) fL MCH (25-34) pg MCHC (32-36) g/dL RDW Std Deviation (36.4-46.3) fL RDW Coeff of Cathleen (11.5-14.5) % Plt Count (130-400) K/uL MPV (7.4-10.4) fL Immature Gran % (Auto) % Neut % (Auto) % Lymph % (Auto) % Casey % (Auto) % Eos % (Auto) % Baso % (Auto) % Immature Gran # (Auto) (0.00-0.02) K/uL Neut # (Auto) (1.4-6.5) K/uL Lymph # (Auto) (1.2-3.4) K/uL Casey # (Auto) (0.11-0.59) K/uL Eos # (Auto) (0-0.5) K/uL Baso # (Auto) (0-0.2) K/uL PT (9.0-12.0) Seconds INR (0.9-1.1) Sodium (136-145) mmol/L Potassium (3.5-5.1) mmol/L Chloride (98-107) mmol/L Carbon Dioxide (21-32) mmol/L Anion Gap (3-11) BUN (7-18) mg/dl Creatinine (0.6-1.4) mg/dl Est Cr Clr Drug Dosing Est GFR ( Amer) Est GFR (Non-Af Amer) BUN/Creatinine Ratio (10-20) Glucose (70-99) mg/dl Calcium (8.5-10.1) mg/dl Magnesium (1.8-2.4) mg/dl Total Bilirubin (0.2-1) mg/dl AST (15-37) U/L ALT (12-78) U/L Alkaline Phosphatase (45-117) U/L Troponin I < 0.015 (0-0.045) ng/ml Total Protein (6.4-8.2) gm/dl Albumin (3.4-5.0) gm/dl Globulin (2.5-4.0) gm/dl Albumin/Globulin Ratio (0.9-2) TSH (0.300-4.500) uIu/ml Urine Color Yellow Urine Appearance Clear (Clear) Urine pH 6.0 (4.5-7.5) Ur Specific [place] 1.016 (1.000-1.030) Urine Protein Negative (Negative) Urine Glucose (UA) Negative (Negative) Urine Ketones Negative (Negative) Urine Blood Negative (Negative) Urine Nitrite Negative (Negative) Urine Bilirubin Negative (Negative) Urine Urobilinogen Negative (Negative) Ur Leukocyte Esterase 2+ H (Negative) Urine WBC (Auto) >30 H (0-5) /hpf Urine RBC (Auto) 0-4 (0-4) /hpf U Hyaline Cast (Auto) 1-5 (0-5) /lpf U Epithel Cells (Auto) >30 H (0-5) /lpf Urine Bacteria (Auto) Negative (Negative) Ur Renal Epithelial Cell Not Reportable Digoxin 1.4 (0.8-2.0) ng/ml 01/02/19 01/02/19 01/02/19 Range/Units 11:48 11:48 11:48 WBC 8.15 (4.8-10.8) K/uL RBC 3.79 L (4.7-6.1) M/uL Hgb 11.6 L (14.0-18.0) g/dL Hct 35.5 L (42-52) % MCV 93.7 (80-100) fL MCH 30.6 (25-34) pg MCHC 32.7 (32-36) g/dL RDW Std Deviation 52.4 H (36.4-46.3) fL RDW Coeff of Cathleen 15.3 H (11.5-14.5) % Plt Count 243 (130-400) K/uL MPV 9.6 (7.4-10.4) fL Immature Gran % (Auto) 0.9 % Neut % (Auto) 64.5 % Lymph % (Auto) 15.8 % Casey % (Auto) 12.3 % Eos % (Auto) 6.0 % Baso % (Auto) 0.5 % Immature Gran # (Auto) 0.07 H (0.00-0.02) K/uL Neut # (Auto) 5.26 (1.4-6.5) K/uL Lymph # (Auto) 1.29 (1.2-3.4) K/uL Casey # (Auto) 1.00 H (0.11-0.59) K/uL Eos # (Auto) 0.49 (0-0.5) K/uL Baso # (Auto) 0.04 (0-0.2) K/uL PT 11.2 (9.0-12.0) Seconds INR 1.1 (0.9-1.1) Sodium 141 (136-145) mmol/L Potassium 4.6 (3.5-5.1) mmol/L Chloride 109 H (98-107) mmol/L Carbon Dioxide 26 (21-32) mmol/L Anion Gap 6.0 (3-11) BUN 46 H (7-18) mg/dl Creatinine 1.52 H (0.6-1.4) mg/dl Est Cr Clr Drug Dosing Not Reportable Est GFR ( Amer) 46.4 Est GFR (Non-Af Amer) 40.0 BUN/Creatinine Ratio 30.2 H (10-20) Glucose 85 (70-99) mg/dl Calcium 8.6 (8.5-10.1) mg/dl Magnesium 2.1 (1.8-2.4) mg/dl Total Bilirubin 0.4 (0.2-1) mg/dl AST 15 (15-37) U/L ALT 14 (12-78) U/L Alkaline Phosphatase 61 (45-117) U/L Troponin I 0.020 (0-0.045) ng/ml Total Protein 7.0 (6.4-8.2) gm/dl Albumin 3.0 L (3.4-5.0) gm/dl Globulin 4.0 (2.5-4.0) gm/dl Albumin/Globulin Ratio 0.8 L (0.9-2) TSH 3.820 (0.300-4.500) uIu/ml Urine Color Urine Appearance (Clear) Urine pH (4.5-7.5) Ur Specific [place] (1.000-1.030) Urine Protein (Negative) Urine Glucose (UA) (Negative) Urine Ketones (Negative) Urine Blood (Negative) Urine Nitrite (Negative) Urine Bilirubin (Negative) Urine Urobilinogen (Negative) Ur Leukocyte Esterase (Negative) Urine WBC (Auto) (0-5) /hpf Urine RBC (Auto) (0-4) /hpf U Hyaline Cast (Auto) (0-5) /lpf U Epithel Cells (Auto) (0-5) /lpf Urine Bacteria (Auto) (Negative) Ur Renal Epithelial Cell Digoxin (0.8-2.0) ng/ml PG Care Time/CCT Total # of Minutes Spent Total Time Spent with Patient: Total time spent is greater than 50% in coordination of care (as documented) at patient's floor/unit and/or counseling patient: (1) Carotid artery stenosis Laterality: bilateral Qualified Code(s): I65.23 - Occlusion and stenosis of bilateral carotid arteries (2) Coronary artery disease Associated angina: without angina Coronary Disease-Associated Artery/Lesion type: [place] artery [place] vs. transplanted heart: [place] heart Qualified Code(s): I25.10 - Atherosclerotic heart disease of [place] coronary artery without angina pectoris (3) HLD (hyperlipidemia) Hyperlipidemia type: unspecified Qualified Code(s): E78.5 - Hyperlipidemia, unspecified (4) HTN (hypertension) Hypertension type: essential hypertension Qualified Code(s): I10 - Essential (primary) hypertension (5) Hypotension Hypotension type: unspecified hypotension type Qualified Code(s): I95.9 - Hypotension, unspecified
--- NOTE | 2019-01-03 11:41 | Consultation Report ---
DATE OF CONSULTATION: 01/03/2019 REQUESTING CONSULT: Fatou Mcwilliamscleve. REASON FOR CONSULTATION: Atrial fibrillation with a slow ventricular response. COMPRESSOR BATTERY PELLETS: Deny Fernandez DO, [facility] Cardiology for Dr. Robert Miranda who is the patient's primary marriage and family therapist. Dear Ms. Edwards, It was a pleasure to see Parveen today in consultation with regards to his atrial fibrillation with a slow ventricular response. He is incredibly hard of hearing. The history is obtained from the patient as well as the chart. He was seen in wound clinic and was hypotensive in the 70s systolic. In the ER, he was initially hypotensive and it improved without needing IV fluids or pressors. He was found to be bradycardic in the 40s and 50s. His digoxin level is 1.4 and he was found to be in acute kidney injury on chronic kidney disease. He denies any chest pain, chest pressure, or chest heaviness. He walks with a walker. He denies significant shortness of breath. He does have lightheadedness and dizziness sometimes with change in position, sometimes just sitting in a chair. He denied any tunnel vision, presyncope or syncope. He denies a cough. He notes that his breathing is at his baseline. He wears oxygen all the time. He has some mild lower extremity edema and he continues to be evaluated at wound clinic. Denies any fevers or chills. The rest of complete review of systems is negative. PAST MEDICAL HISTORY: 1. Chronic atrial fibrillation. 2. Coronary artery disease, status post coronary bypass grafting x4 in 2001. 3. Stent placement to the proximal RCA and left circumflex in 2002. 4. Last ejection fraction in 03/2013 with an EF in the range of 30%-35%. 5. Chronic systolic heart failure. 6. Renal artery stenosis, status post left renal artery stent in 2002. 7. History of bilateral carotid endarterectomies. 8. Hyperlipidemia. 9. Hypertension. 10. Chronic kidney disease stage III. 11. Pressure ulcer on his right foot, stage III. SOCIAL HISTORY: Lives with his . He denies any current alcohol or tobacco use. FAMILY HISTORY: Noncontributory. MEDICATIONS: Reviewed in electronic medical record. ALLERGIES: CODEINE. PHYSICAL EXAMINATION: GENERAL: He is awake. He is very hard of hearing. VITAL SIGNS: His heart rate is 51, blood pressure 91/56, respirations 18, sat 93%. HEENT: His sclerae are anicteric. His hearing is markedly diminished. NECK: His carotid upstrokes felt relatively preserved. LUNGS: Globally decreased breath sounds. No rales, rhonchi or wheezing. HEART: Irregularly irregular but bradycardic. No appreciable murmurs or rubs. ABDOMEN: Soft, nontender, nondistended. Positive bowel sounds. EXTREMITIES: Mild bilateral lower extremity edema with bilateral changes of his skin in the lower extremities, ELECTROCARDIOGRAM: On admission, atrial fibrillation with a very slow ventricular response at 49 beats per minute, left axis deviation, low voltage QRS, anterior infarct - age indeterminate, nonspecific T-wave changes. IMPRESSION: 1. Atrial fibrillation with a very slow ventricular response. 2. Coronary artery disease as discussed above. 3. Ischemic cardiomyopathy. 4. Chronic systolic heart failure. 5. Bxxvv-[id number] kidney disease. PLAN: I agree with stopping his digoxin and his digoxin level is 1.4, and with his age and his renal function, he is at high risk for having slow heart rates on digoxin. It should not be reinitiated at any point. His beta blockers as well as his Entresto are currently being held. Depending on how his heart rate increases, we can determine restarting his beta blockers. Also, depending on his renal function as well as his blood pressure, we can discuss reinitiating his Entresto. Given the significant benefit of Entresto, I would prefer that he be on Entresto and reduce his isosorbide dose. In addition, his home meds suggest he was on lisinopril and he cannot be on lisinopril and Entresto together. We will stop his digoxin, and depending on his renal function and blood pressure, we will adjust his medications as above.
[2019-01-03] MEDS ORDERED: DIGOXIN 0.125 MG/2.5 ML UDP PO SCH (16:00)
[2019-01-03] MEDS ORDERED: INFLUENZA ADMINISTRATION CHARGE ONE (20:00)
[2019-01-03] MEDS ORDERED: INFLUENZA VIRUS QUAD VACCINE 0.5 ML SYR IM ONE (20:00)
[2019-01-04 06:59] LABS: Hematocrit (blood only) 38.8 % (42-52); Hemoglobin 12.5 g/dL (14.0-18.0); Mean Corpuscular Hemoglobin 30.3 pg (25-34); Mean Corpuscular Hgb Conc 32.2 g/dL (32-36); Mean Corpuscular Volume 94.2 fL (80-100); Mean Platelet Volume 10.5 fL (7.4-10.4); Platelet Count 256 K/uL (130-400); RDW Coefficient of Variation 15.1 % (11.5-14.5); RDW Standard Deviation 51.8 fL (36.4-46.3); Red Blood Count 4.12 M/uL (4.7-6.1); White Blood Count 7.47 K/uL (4.8-10.8)
[2019-01-04 07:38] LABS: Albumin Level 2.8 gm/dl (3.4-5.0); BUN Creatinine Ratio 29.1 (10-20); Calcium 8.8 mg/dl (8.5-10.1); Est GFR (African American) 54.5; Est GFR (Non-African American) 47.1; Magnesium 2.1 mg/dl (1.8-2.4)
[2019-01-04 07:40] LABS: Albumin Globulin Ratio 0.8 (0.9-2); Bilirubin,Total 0.5 mg/dl (0.2-1); Globulin 3.7 gm/dl (2.5-4.0); Total Protein 6.5 gm/dl (6.4-8.2)
[2019-01-04] MEDS: ASPIRIN 81 MG ECTAB PO SCH (09:45)
[2019-01-04] MEDS: SIMVASTATIN 40 MG TAB PO SCH (09:45)
[2019-01-04] MEDS: DONEPEZIL HCL 5 MG TAB PO SCH (09:45)
[2019-01-04] MEDS: POLYETHYLENE (MIRALAX) 17 GM PACK PO SCH (09:46)
[2019-01-04] MEDS: HEPARIN SOD 5,000 UNIT/0.5 ML VIAL SQ SCH ×2 (09:46→20:28)
--- NOTE | 2019-01-04 11:52 | Cardiology Progress Note ---
Date of Service January 04, 2019 Subjective His is concerned he may look slightly more short of breath. Even yesterday he appeared mildly dyspneic talking in sentences. And he describes having chronic dyspnea. He denies any chest pain or chest pressure. He denies any lightheadedness or dizziness currently In reviewing his child monitor his heart rates are still slow but improving off digoxin and beta-blockers. His blood pressure still remains borderline low. Results & Data Vital Signs (Past 12 Hours) Vital Signs Temp Pulse Pulse Resp BP Pulse Ox 01/04/19 07:48 36.4 C L 64 20 145/78 H 01/04/19 03:19 36.4 C L 51 L 20 97/62 L 100 01/04/19 00:00 53 L PHYSICAL EXAMINATION: GENERAL: He is awake. He is very hard of hearing. VITAL SIGNS: His heart rate is 51, blood pressure 91/56, respirations 18, sat 93%. HEENT: His sclerae are anicteric. His hearing is markedly diminished. NECK: His carotid upstrokes felt relatively preserved. LUNGS: Globally decreased breath sounds With faint crackles in the bases HEART: Irregularly irregular but bradycardic. No appreciable murmurs or rubs. ABDOMEN: Soft, nontender, nondistended. Positive bowel sounds. EXTREMITIES: Mild bilateral lower extremity edema with bilateral changes of his skin in the lower extremities, IMPRESSION: 1. Atrial fibrillation with a very slow ventricular response. 2. Coronary artery disease as discussed above. 3. Moderate to severe Ischemic cardiomyopathy. 4. Chronic systolic heart failure. 5. [place] kidney disease. As discussed with hospitalist service will continue to hold his digoxin as well as his beta-blockers. At this point given his relatively low blood pressure there is no room to Restart his Entresto. Depending on how he looks this afternoon he may need a small dose of IV di uretics. We will have to watch his volume status. With his bradycardia at night potentially it is Potentially exacerbating his heart failure symptoms. Hopefully his heart rate will continue to recover as the digoxin gets out of his system. At this point there is no indication for pacemaker implantation.
--- NOTE | 2019-01-04 12:19 | Hospitalist Progress Note ---
Date of Service January 04, 2019 Assessment & Plan (1) Hypotension: - SBP 70's in the wound clinic; BP is now improved, will fluctuate between 90-140's. - Holding home Entresto, Imdur and Metoprolol - consider restarting Entresto today if BP is stable >100's. - Hold IV fluid hydration in setting of systolic CHF. - U/a negative; BC negative to date -- hypotension is not likely related to underlying infection. (2) Symptomatic bradycardia: - HR has been in the 40-50's on monitor, dropped to 30's overnight; his reports HR is usually between 52-55 at home, has intermittent episodes of dizziness. - Hold Metoprolol; d/c home Digoxin. - Consulted cardiology, appreciate input. - May be a pacemaker candidate if no improvement in HR over next 24-48 hours. (3) Pressure ulcer of right foot, stage 3: - Has been following with the wound clinic. - Wound is healing, no erythema or discharge noted on exam. Change dressing every other day. - Consult wound nurse as inpatient. (4) Acute renal failure: - Creatinine is improving; baseline ~1.2-1.3. - Likely pre-renal related to dehydration. - Hold IV fluids due to systolic CHF. - Holding home ACEI and Entresto in setting of ARF -- plan to resume Entresto and d/c ACEI at discharge (no indication for dual therapy with ARB and MARYANN) (5) Stage III chronic kidney disease: - Renally dose all meds. (6) Coronary artery disease: - S/p CABG x4 in 2001 2001 at [facility]. Saphenous vein to LAD. Saphenous vein to 2 left circumflex marginal branches. Saphenous vein graft to PDA. - Cardiac cath in 2002 with stent placed in proximal RCA and left circumflex artery. - Follows with Dr. Miranda; consulting cardiology as an inpatient. - EKG was negative; Trop was 0.020 then trended down. - Holding home beta margot & Entresto; continue statin and aspirin as prescribed. (7) Permanent atrial fibrillation: - A. fib, bradycardic (as low as 30's) on monitor. - Dig level was WNL; d/c med per cardiology. - Hold metoprolol due to bradycardia. - Not currently on anticoagulation therapy due to history of bleeding with bladder. (8) Systolic CHF with reduced left ventricular function, NYHA class 3: - Most recent documented echo in Mar 2013 showed EF 30-35%, multiple severe wall motion abnormalities. - Monitor net I/O's and daily weights. - Does not take daily diuretics; mild crackles in bilateral lung bases - consider low dose diuretic if BP is stable this afternoon. - Hold home Entresto and Metoprolol in setting of hypotension - plan to d/c ACEI at discharge, continue Entresto. (9) Chronic low back pain: - Monitored as outpatient. - Tylenol prn pain. (10) Renal artery stenosis: - S/p left renal artery stent in 2002. (11) Carotid artery stenosis: - S/p bilateral carotid endarterectomies. - Continue ASA and statin. (12) HLD (hyperlipidemia): - Continue statin as prescribed. (13) HTN (hypertension): - Hold Metoprolol, Imdur and Entresto. - Consider resuming Entresto if BP remains stable this afternoon. (14) Anemia: - Has been anemic, hgb ~11-12 at baseline. - May be related to anemia of chronic disease in setting of CKD stage III. - Will continue to monitor. (15) DVT prophylaxis: - SCDs; Heparin q12hr. Dispo: Evaluation of hypotension/bradycardia. Discharge pending improvement -- herman devi over next 24-48 hours. FULL CODE Subjective HR 40-50's, as low as 30's overnight. BP is fluctuating, increased to 140's at times then decreases to 90's. Cardiology following. Pt. is fatigued today but A&Ox3. His is at bedside, reports that she is concerned he has periods of apnea during rest. He does not appear SOB on exam. Will continue to monitor. Review of Systems Review of Systems: All systems reviewed & are unremarkable except as noted in HPI & below Constitutional: + fatigue and + weakness; no fever, no chills and no anorexia Respiratory: + dyspnea on exertion; no cough, no dyspnea and no wheezing Cardiovascular: no chest pain, no palpitations and no edema Gastrointestinal: no abdominal pain, no nausea and no constipation Genitourinary: no difficulty urinating Musculoskeletal: no back pain and no joint pain Physical Exam Physical Exam: General: Resting comfortably, no acute distress. HEENT: NC/AT; PERRLA with EOMI; [place] conjunctiva, MMM. No erythema of posterior pharynx Neck: Supple and nontender Cardiac: bradycardic, irregular. Lungs: on 2L via NC; mild crackles noted in bilat lung bases. Abdomen: Bowel normoactive X 4; Nontender to palpation Extremities: Warm. No edema present Neuro: No focal weakness; mildly lethargic/fatigued on exam. Skin: No rash Results & Data Vital Signs (Past 12 Hours) Vital Signs Temp Pulse Resp BP Pulse Ox 01/04/19 07:48 36.4 C L 64 20 145/78 H 01/04/19 03:19 36.4 C L 51 L 20 97/62 L 100 Laboratory Results 01/04/19 01/04/19 Range/Units 06:08 06:08 WBC 7.47 (4.8-10.8) K/uL RBC 4.12 L (4.7-6.1) M/uL Hgb 12.5 L (14.0-18.0) g/dL Hct 38.8 L (42-52) % MCV 94.2 (80-100) fL MCH 30.3 (25-34) pg MCHC 32.2 (32-36) g/dL RDW Std Deviation 51.8 H (36.4-46.3) fL RDW Coeff of Cathleen 15.1 H (11.5-14.5) % Plt Count 256 (130-400) K/uL MPV 10.5 H (7.4-10.4) fL Sodium 143 (136-145) mmol/L Potassium 5.0 (3.5-5.1) mmol/L Chloride 111 H (98-107) mmol/L Carbon Dioxide 29 (21-32) mmol/L Anion Gap 3.0 (3-11) BUN 39 H (7-18) mg/dl Creatinine 1.33 (0.6-1.4) mg/dl Est Cr Clr Drug Dosing 31.0 ml/min Est GFR ( Amer) 54.5 Est GFR (Non-Af Amer) 47.1 BUN/Creatinine Ratio 29.1 H (10-20) Glucose 83 (70-99) mg/dl Calcium 8.8 (8.5-10.1) mg/dl Magnesium 2.1 (1.8-2.4) mg/dl Total Bilirubin 0.5 (0.2-1) mg/dl AST 14 L (15-37) U/L ALT 14 (12-78) U/L Alkaline Phosphatase 58 (45-117) U/L Total Protein 6.5 (6.4-8.2) gm/dl Albumin 2.8 L (3.4-5.0) gm/dl Globulin 3.7 (2.5-4.0) gm/dl Albumin/Globulin Ratio 0.8 L (0.9-2) PG Care Time/CCT Total # of Minutes Spent Total Time Spent with Patient: Total time spent is greater than 50% in coordination of care (as documented) at patient's floor/unit and/or counseling patient: (1) Carotid artery stenosis Laterality: bilateral Qualified Code(s): I65.23 - Occlusion and stenosis of bilateral carotid arteries (2) Coronary artery disease Associated angina: without angina Coronary Disease-Associated Artery/Lesion type: [place] artery [place] vs. transplanted heart: [place] heart Qualified Code(s): I25.10 - Atherosclerotic heart disease of [place] coronary artery without angina pectoris (3) HLD (hyperlipidemia) Hyperlipidemia type: unspecified Qualified Code(s): E78.5 - Hyperlipidemia, unspecified (4) HTN (hypertension) Hypertension type: essential hypertension Qualified Code(s): I10 - Essential (primary) hypertension (5) Hypotension Hypotension type: unspecified hypotension type Qualified Code(s): I95.9 - Hypotension, unspecified
[2019-01-05 06:40] LABS: Mean Corpuscular Hemoglobin 30.2 pg (25-34); Mean Corpuscular Hgb Conc 32.4 g/dL (32-36); Mean Corpuscular Volume 93.2 fL (80-100); Mean Platelet Volume 10.1 fL (7.4-10.4); Platelet Count 251 K/uL (130-400); RDW Coefficient of Variation 15.2 % (11.5-14.5); RDW Standard Deviation 51.8 fL (36.4-46.3); Red Blood Count 3.97 M/uL (4.7-6.1); White Blood Count 8.22 K/uL (4.8-10.8)
[2019-01-05 07:13] LABS: BUN Creatinine Ratio 31.8 (10-20); Calcium 8.5 mg/dl (8.5-10.1); Creatinine Clr Calc Pharmacy 33.3 ml/min; Est GFR (African American) 58.2; Est GFR (Non-African American) 50.2; Potassium 4.2 mmol/L (3.5-5.1)
[2019-01-05] MEDS: ASPIRIN 81 MG ECTAB PO SCH (09:30)
[2019-01-05] MEDS: SIMVASTATIN 40 MG TAB PO SCH (09:30)
--- NOTE | 2019-01-05 10:28 | Cardiology Progress Note ---
Date of Service January 05, 2019 Assessment & Plan (1) Permanent atrial fibrillation: Heart rate acceptable. Would continue to avoid beta-margot. Continue to hold digoxin. At this time, unless he develops tachycardia, would just avoid rate-controlling medications if possible. He is not on anticoagulation due to chronic issues with hematuria according to Dr. Miranda is documents. Dr. Miranda has followed him chronically in the outpatient setting. His bradycardia is not likely playing a role in his current symptoms. (2) Symptomatic bradycardia: Plan as above. Continue to avoid medications that can cause bradycardia. Aricept has been hold as well by primary service, which may improve his heart rate. (3) Hypotension: Blood pressure has improved. Would continue to hold heart failure medications for now. Could consider low-dose Entresto in the future if can tolerate. This can be further discussed as an outpatient with his primary merchandising execution manager. (4) Chronic systolic CHF (congestive heart failure): He appears euvolemic. This is not likely the cause of his shortness of breath. Continue low-sodium diet. Check daily weights. Eyes and nose. (5) Ischemic cardiomyopathy: In the past, he has not tolerated typical therapies due to orthostatic hypotension according to records. He presented this hospitalization with hypotension and acute renal insufficiency. Will continue to hold medications for now. We discussed potential ICD for primary prevention with his son at the bedside. His son differs all decision making to patient's . It is not clear if this would be appropriate for him with his other comorbidities, and significant weight loss recently. This can be continued to be discussed as an outpatient as there is no urgency. It is not likely that he will be able to tolerate more than mild doses of heart failure medical therapy. (6) Coronary artery disease: Status post prior CABG and PCI. No angina. Continue aspirin 81 mg daily. Continue statin. (7) S/P CABG (coronary artery bypass graft): As above. (8) S/P coronary artery stent placement: Continue antiplatelets therapy. (9) Shortness of breath: Consider pulmonary etiology as he does not appear to be hypervolemic. CT scan done earlier this year suggested emphysema. He has significantly reduced breath sounds bilaterally and prior smoking history. As per primary service. Disposition: Chronically ill with severely reduced LV systolic function and recent significant weight loss. Overall prognosis is poor long-term. Consider palliative care consult. Plan of care discussed with Dr. Mathias of the primary hospitalist service. Please call with any other questions or concerns. Subjective He denies shortness of breath at rest. He admits that he does have shortness of breath when he exerts himself. His son was present at the bedside and states that this has been a progressively worsening problem over the past several months. He denies orthopnea and denies any shortness of breath at rest. He uses supplemental oxygen at home, 2 L 24 hours per day. He denies chest pain, syncope, edema, or bleeding. He has had an issue with postural lightheadedness in the past but this has resolved. He continues to be off of Entresto, beta- margot, and digoxin. His son is present at the bedside. His son also states that he has lost approximately 50-60 lb over the past 6 months. He is sedentary at home, only ambulating from room to room as needed. He lives at home with his 91-year-old . Review of systems: As above. Physical Exam Physical Exam: Gen.: No acute distress. Alert. Hard of hearing. HEENT: Anicteric sclera. Neck: No JVD. No hepatic jugular reflux. Cardiac: Irregularly irregular. Distant heart sounds. No audible murmurs, rubs, or gallops. Pulmonary: Significantly reduced breath sounds throughout but otherwise clear. Abdomen: Soft, nontender, nondistended, with normoactive bowel sounds. No bruits noted. Extremities: Trace bilateral lower extremity edema. No cyanosis. Psychiatric: Affect appears appropriate. Results & Data Vital Signs (Past 12 Hours) Vital Signs Temp Pulse Pulse Resp BP Pulse Ox 01/05/19 07:07 36.3 C L 49 L 15 128/74 98 01/05/19 04:13 36.4 C L 55 L 23 126/75 100 01/04/19 23:49 36.6 C 48 L 19 128/68 98 01/04/19 23:38 56 L Laboratory Results Laboratory Results - last 24 hr 01/05/19 01/05/19 06:11 06:11 WBC 8.22 RBC 3.97 L Hgb 12.0 L Hct 37.0 L MCV 93.2 MCH 30.2 MCHC 32.4 RDW Std Deviation 51.8 H RDW Coeff of Cathleen 15.2 H Plt Count 251 MPV 10.1 Sodium 141 Potassium 4.2 D Chloride 107 Carbon Dioxide 26 Anion Gap 8.0 BUN 40 H Creatinine 1.26 Est Cr Clr Drug Dosing 33.3 Est GFR ( Amer) 58.2 Est GFR (Non-Af Amer) 50.2 BUN/Creatinine Ratio 31.8 H Glucose 89 Calcium 8.5 Diagnostic Findings Telemetry personally reviewed: Atrial fibrillation. No significant pauses. ECG personally reviewed: ECG 01/03/2019: AFib at 49 bpm. Inferior infarct. Anterior infarct. Low voltage. CTA chest report reviewed. CTA chest 06/10/2018: No PE. Moderate to large right pleural effusion. Ext ensive consolidation volume loss involving the right lower lobe. Small left pleural effusion. Emphysema. Chest x-ray 01/02/2019: No overt pulmonary edema per Radiology. Right lung base opacities have progressed from comparison study under suggestive of atelectasis or pneumonia per Radiology. Chronic interstitial coarsening. Echo 10/07/2018: Mildly dilated LV with severely reduced systolic function. EF 20-25%. Apical akinesis. Moderate hypokinesis of the septum, inferior wall, lateral wall, and mid inferoseptum. Akinesis of the basal posterior lateral wall. Moderate MR. Moderate TR. Biatrial dilation. Mildly elevated RVSP. Medications Administered Current Inpatient Medications Acetaminophen (Tylenol) 650 mg PO Q4H PRN PRN Reason: Pain or Fever Stop: 02/01/19 16:22 Aspirin (Ecotrin Ectab) 81 mg PO QAM [facility] Stop: 02/02/19 08:59 Last Admin: 01/04/19 09:45 Dose: 81 mg Documented by: Heparin Sodium (Porcine) (Heparin Sodium (Porcine)) 5,000 units SQ Q12 [facility] Stop: 02/01/19 20:59 Last Admin: 01/04/19 20:28 Dose: 5,000 units Documented by: Ondansetron HCl (Zofran) 4 mg IV Q6H PRN PRN Reason: Nausea Stop: 02/01/19 16:22 Polyethylene Glycol (Miralax Powder Packet) 17 gm PO QAM [facility] Stop: 02/02/19 08:59 Last Admin: 01/04/19 09:46 Dose: 17 gm Documented by: Simvastatin (Zocor) 40 mg PO DAILY [facility] Stop: 02/02/19 08:59 Last Admin: 09/29/19 09:45 Dose: 40 mg Documented by: PG Care Time/CCT Total # of Minutes Spent Total Time Spent with Patient: Total time spent is greater than 50% in coordination of care (as documented) at patient's floor/unit and/or counseling patient: (1) Hypotension Hypotension type: unspecified hypotension type Qualified Code(s): I95.9 - Hypotension, unspecified (2) Coronary artery disease Coronary Disease-Associated Artery/Lesion type: [place] artery [place] vs. transplanted heart: [place] heart Associated angina: without angina Qualified Code(s): I25.10 - Atherosclerotic heart disease of [place] coronary artery without angina pectoris
--- NOTE | 2019-01-05 12:15 | Palliative Care Consultation ---
Date of Consultation January 05, 2019 Assessment & Plan (1) Goals of care, counseling/discussion: -88 year old male patient with PMH dementia, htn, hld, afib, chronic systolic CHF, CAD, chronic lower back pain, sleep apnea, osteoarthritis, and many others, presented to the hospital at the recommendation of wound clinic when he was found to be bradycardic. Patient was found to have pulse in the 30s. Patient's metoprolol of course is being held. His creatinine was also noted to be elevated at 1.52, Entresto also held. Cardiology consulted who recommend avoiding rate-controlling medications altogether, including patient's digoxin which is also being held. Patient's EF on echo is 20-25%, but he is currently euvolemic. His creatinine has improved back to normal range since meds being held. Family reports that patient has lost 40lb since last January, unintentionally. He does not eat/drink well at home and states he is not hungry. Cardiology spoke with patient and family today re: ICD placement, which cardiology and family both agree that patient would not want as it will not impr ove patient's quality of life or other issues. Given patient's increased weakness, weight loss, SOB, Dr. Mathias has ordered marroquin-CT scan. Palliative care is consulted to discuss goals of care. -Met with patient, his Johanna, and son Shorty in room 233. Patient is AA&O x3, but is very [place] and does not elaborate a whole lot on his medical conditions, GOC, etc. Mostly defers to family. -Patient's family is quite realistic and knowledgeable about his medical condition. They are aware of the heart failure, holding BP meds, and about the concern with the unintentional weight loss. Family states they would not be surprised to find out that patient could have a metastatic process happening. -Patient's family confirm that they do not want AICD placed. -We talked about goals of care. states she wants patient to be at home and be comfortable, could use some help in the home. We discussed home hospice as an option, and family is interested. Johanna wants to speak with her other three sons this evening and I will follow up tomorrow. -Since my meeting, patient did have CT chest and a/p done which shows spiculated mass and possible metastatic process. This was not discussed by me with patient and family. Will discuss tomorrow. -Patient is now DNR/DNI as per axel and Dr. Mathias' conversation with patient and family. (2) Hypotension: Hypotension type: unspecified hypotension type Qualified Code(s): I95.9 - Hypotension, unspecified (3) Acute renal failure: (4) Symptomatic bradycardia: (5) Chronic systolic CHF (congestive heart failure): (6) Shortness of breath: Supervising Physician Co-Signing Physician Notes Chart reviewed, patient seen and examined. Patient's and son at bedside. Collaborated with ANDRÉS Bell PE: Patient appears comfortable on O2 at 4 L via nasal cannula HEENT: EOMI, mild [place] CV: Bradycardia Respiratory: Respirations unlabored Abdomen: Not distended Neuro: Alert, positive cognitive deficits consistent with dementia Discussed with family further details regarding hospice care at home. and son wish to speak with a 3 other sons regarding decision for hospice care. Patient's CODE STATUS is DNR. Will continue to follow and assist family with medical decision making. History of Present Illness Attending Physician: Scott Mathias DO History of Present Illness This 88 year old male patient with PMH dementia, htn, hld, afib, chronic systolic CHF, CAD, chronic lower back pain, sleep apnea, osteoarthritis, and many others, presented to the hospital at the recommendation of wound clinic when he was found to be bradycardic. Patient was found to have pulse in the 30s. Patient's metoprolol of course is being held. His creatinine was also noted to be elevated at 1.52, Entresto also held. Cardiology consulted who recommend avoiding rate-controlling medications altogether, including patient's digoxin which is also being held. Patient's EF on echo is 20-25%, but he is currently euvolemic. His creatinine has improved back to normal range since meds being held. Family reports that patient has lost 40lb since last January, unintentionally. He does not eat/drink well at home and states he is not hungry. Cardiology spoke with patient and family today re: ICD placement, which cardiology and family both agree that patient would not want as it will not improve patient's quality of life or other issues. Given patient's increased weakness, weight loss, SOB, Dr. Mathias has ordered marroquin-CT scan. Palliative care is consulted to discuss goals of care. Thank you kindly for this consult. Palliative care team will follow as needed. Allergies Allergy/AdvReac Type Severity Reaction Status Date / Time codeine AdvReac Mild CONFUSION Verified 01/02/19 12:16 Home Medications Home Medications Medication Instructions Recorded Confirmed Type aspirin [Aspirin Low Dose] 81 mg PO QAM 01/06/18 01/02/19 History cholecalciferol (vitamin D3) 1,000 unit PO DAILY 01/06/18 01/02/19 History [Vitamin D3] Slow-Mag 71.5 mg PO QAM 06/10/18 01/02/19 History donepezil 5 mg PO QAM 06/10/18 01/02/19 History ciprofloxacin-dexamethasone 2 drp OTIC (EAR) BID 09/11/18 01/02/19 History [Ciprodex] digoxin 125 mcg tablet 125 mcg PO QAM tab 11/11/18 01/02/19 History lisinopril 5 mg tablet 5 mg PO DAILY 11/11/18 01/02/19 History polyethylene glycol 3350 17 8.5 gm PO QAM gm 11/11/18 01/02/19 History gram/dose oral powder triamcinolone acetonide 0.1 % 1 appln TOPICAL BID #1 gm 11/11/18 01/02/19 History topical ointment isosorbide mononitrate ER 120 mg 120 mg PO QAM #90 tab 11/14/18 01/02/19 Rx tablet,extended release 24 hr metoprolol tartrate 25 mg tablet 12.5 mg PO DAILY #30 tab 12/24/18 01/02/19 Rx sacubitril 49 mg-valsartan 51 mg 1 tab PO BID #60 tab 12/24/18 01/02/19 Rx tablet simvastatin 40 mg tablet 40 mg PO DAILY #90 tab 01/01/19 01/02/19 Rx Patient History Medical History Chronic systolic CHF (congestive heart failure) Permanent atrial fibrillation (Chronic) Heart failure with reduced ejection fraction (Chronic) Dementia (Chronic) Generalized osteoarthritis (Chronic) Chronic low back pain (Chronic) Recurrent pleural effusion on right (Resolved) Chronic kidney disease Stage III, with baseline creatinine 1.5-1.9mg/dL. Has evidence of secondary hyperparathyroidism with elevation of PTH. On Vit D supplementation and >30. Prediabetes Elevated HbA1c at 6.3% (11/23) Bladder tumor (Acute) Followed by urology on surveillance. Sleep apnea Hx of unilateral nephrectomy CHF (congestive heart failure) (Acute) PNA (pneumonia) (Acute) Hypoxia (Acute) Pleural effusion Systolic CHF with reduced left ventricular function, NYHA class 3 Traumatic open wound of left lower leg with delayed healing (Acute) Pressure ulcer of coccygeal region, stage 2 (Chronic) Pressure ulcer of right foot, stage 3 (Chronic) Pressure ulcer of left foot, stage 2 (Chronic) Open wound of leg Renal artery stenosis Ischemic cardiomyopathy Carotid artery stenosis HLD (hyperlipidemia) (Chronic) HTN (hypertension) (Chronic) Osteoarthritis Mild dementia Acute respiratory failure with hypoxia Pneumonia (Acute) Congestive heart failure (CHF) (Chronic 04/02/13) Atrial fibrillation (Acute 01/12/14) Coronary artery disease (Chronic) Bypass graft stenosis (Resolved) Open wound of foot with complication (Acute) bilateral feet Bladder cancer Lumbar compression fracture Surgical History S/P coronary artery stent placement S/P CABG (coronary artery bypass graft) Stented coronary artery (Resolved) H/O right coronary artery stent placement History of right heart catheterization History of tonsillectomy Hx of CABG Hx of mastoidectomy Family History Mother Family history of CABG Coronary heart disease Sister Coronary heart disease Brother Coronary heart disease Social History Preferred Language: Wallisian Communication Ability: Effective Communication Ability Comment: extremely [place], left ear is his good ear Visual Impairment: Partially Limited Hearing Ability: Use of Hearing Aid Water Sponger Required: No Beliefs That Will Affect Care: None marital status: Current Living Situation: Spouse Current Living Situation Comment: live in a 1 story ranch, 1 step into the kitchen, glide chair for basement current occupational status: retired Other Information That Helps Us Care for You: No other: comfort keepers in the home 4 hours 5 days a week to assist Feels Safe at Home: Yes Safety Concerns: Feels Safe At This Time Smoking Status: Former smoker Second Hand Exposure: No ; Hx Alcohol Use: No Hx Substance Use: No Other Diet Comment: poor apetite per 's report, lost 40 pounds in the past 7 months during the past year weight has: decreased > 10 lbs Review of Systems Constitutional: + anorexia and + weight loss Ear, Nose, Mouth, Throat: no dysphagia Respiratory: + cough, + dyspnea and + dyspnea on exertion; no hemoptysis Cardiovascular: no chest pain and no edema Gastrointestinal: no abdominal pain and no nausea Musculoskeletal: no pain Neurologic: + memory loss Psychiatric: no anxiety Physical Exam Constitutional: + thin, + cachectic and + frail appearing ENMT: Ears: + hearing impairment Respiratory: normal respiratory effort Auscultation: + diminished lung sounds Cardiovascular: RRR, no murmur, no edema Vessels: dorsalis pedis pulses present (weak) Gastrointestinal (Abdomen): Inspection/Auscultation: abdomen normal to inspection and normal bowel sounds Percussion/Palpation: abdomen soft Skin: purple discoloration of BLE from ankles to feet-- scratch dumont and scabs from patient Neurologic: moves all extremities and awake Psychiatric: Orientation: alert and oriented x 3 Insight: + limited insight Results & Data Vital Signs (Past 12 Hours) Vital Signs Temp Pulse Resp BP Pulse Ox 01/05/19 07:07 36.3 C L 49 L 15 128/74 98 01/05/19 04:13 36.4 C L 55 L 23 126/75 100 Time Spent Midlevel 70 minutes with >50% of the time spent at bedside with patient and family discussing condition and GOC. Attending Spent 20 minutes in addition to the 70 minutes spent by [employer]NER for a total of 90 minutes with greater than 50% of the time spent at bedside discussing treatment options and goals of care.
[2019-01-05] MEDS ORDERED: IOVERSOL 100ml IV PRN (12:58)
--- NOTE | 2019-01-05 13:56 | CT Scan Report ---
CT SCAN OF THE CHEST, ABDOMEN, AND PELVIS WITH IV CONTRAST CLINICAL HISTORY: Cough and dyspnea. 40 pound weight loss. COMPARISON STUDY: Chest CT scans dated 11/18/2007 and 06/10/2018. Abdominal CT dated 12/25/2008. CT scan s of the thoracic and lumbar spine dated 01/06/2018. TECHNIQUE: Following the IV administration of 94 of Optiray 320, CT scan of the chest, abdomen, and p gerry was performed from the thoracic inlet to the proximal femora. Images are reviewed in the axial, sagittal, and coronal planes. IV contrast was administered without complication. A dose lowering t echnique was utilized adhering to the principles of ALARA. The examination is degraded by streak nga fact from the arms which could not be elevated above the chest or abdomen. CT DOSE: 1096.65 mGycm FINDINGS: CHEST: Thyroid: Imaged portions of the thyroid gland are normal in size and attenuation. Thoracic aorta: There is advanced atherosclerotic calcification of the thoracic aorta, which is israel l in caliber and demonstrates standard 3-vessel arch anatomy. No dissection is identified. Mural thro mbus is noted within the descending thoracic aorta. Pulmonary vasculature: The pulmonary trunk is normal in caliber. There are no filling defects identif ied in the central pulmonary vessels to indicate pulmonary embolus. Note that this examination was no t protocoled for evaluation of the pulmonary arteries. Heart: The patient is status post midline sternotomy. The heart is enlarged and without pericardial e ffusion. The coronary arteries are densely calcified. Lungs and pleural spaces: Evaluation of the lung parenchyma is modestly degraded by motion artifact. Apical scarring is observed. Advanced emphysematous change is noted. There is a small to moderate rig ht pleural effusion with associated atelectasis. Fluid is noted along the right major fissure. A 2.8 x 1.3 cm spiculated pleural-based lesion is suggested in the right lower lobe. No additional pulmonar y lesions identified. The left lung is clear. A fat-containing Bochdalek hernia is noted at the left lung base. Mediastinum: There is no mediastinal lymphadenopathy. Aisha: On image #[id number]. Prominent right hilar nodes measure up to 10 mm in short axis. Axillae: There is no axillary lymphadenopathy. Bony thorax: The skeletal structures are osteopenic. Advanced arthritic change is seen in the shoulde rs and thoracic spine. No lytic or blastic lesions are identified. Soft tissues: Gynecomastia is noted. ABDOMEN AND PELVIS: Liver: The contrast-enhanced liver is normal in size, contour, and attenuation. There is mild central intrahepatic or ductal dilatation. The hepatic veins and portal veins are patent. Gallbladder: There is a calcified gallstone. The gallbladder is contracted. Spleen: Normal in size and attenuation. Pancreas: Moderately atrophic and grossly unremarkable. Adrenal glands: Unremarkable. Kidneys: The contrast enhanced kidneys are atrophic and without hydronephrosis. The kidneys enhance s ymmetrically. A 1.5 cm cyst is noted in the right kidney. There is a circumaortic left renal vein. Abdominal vasculature: There is advanced atherosclerotic calcification and mild ectasia of the abdomi nal aorta. Bowel: There is moderate constipation. No bowel obstruction is seen. There is a short segment of hete rogeneous wall thickening identified in the ascending colon seen on images #[id number]. There are large duodenal diverticula. The appendix is normal as visualized. Peritoneum: There is no intraperitoneal free air or abdominal ascites. Lymphadenopathy: None. Pelvic viscera: The prostate gland is enlarged and heterogeneous. The bladder wall demonstrates asymm etric thickening and mucosal hyperemia. There is pericystic inflammation. Postoperative change is not ed in the right groin. Skeletal structures: The skeletal structures are osteopenic. There is moderate to advanced cervical s pondylosis. There are mild compression deformities of L1 and L2. Large posterior disc osteophyte comp lexes throughout the lumbar spine likely contribute to multilevel acquired compromise of the central canal. Advanced arthritic change is seen in the hips. Mild degenerative sclerosis is noted in the sac roiliac joints. There is a hemitransitional left lumbosacral segment. No lytic or blastic lesions are seen. IMPRESSION: 1. Cardiomegaly and advanced emphysema. 2. A 2.8 cm spiculated lesion is suggested in the subpleural right lower lobe. This is pathologically indeterminant but concerning for neoplasm. This could be further assessed with PET imaging or tissue sampling. 3. Small to moderate right pleural effusion with associated atelectasis. 4. There is asymmetric bladder wall thickening. The bladder mucosa appears hyperemic and there is per icystic inflammation. This could be related to chronic outlet obstruction and possibly superimposed i nfection. A bladder neoplasm would be impossible to exclude. Follow-up with urology is recommended. 5. A short segment of asymmetric wall thickening is suggested in the ascending colon. This is not wel l assessed by CT and a colonic neoplasm is not excluded. Consider colonoscopy for further assessment. 6. Cholelithiasis. 7. Additional findings as above. Electronically signed by: Krishna Forbes M.D. 01/05/2019 1:54 PM
--- NOTE | 2019-01-05 15:09 | Hospitalist Progress Note ---
Date of Service January 05, 2019 Assessment & Plan (1) Lung cancer: CT on 01/05 with right lower lobe, spiculated mass 2.8cm, pleural based associated with right pleural effusion, so most likely stage 4 lung CA patient and family not interested in any type of diagnostic work up, even thorac entesis which I agree with he does not wish for any treatment nor do I think treatment is realistic given his systolic HF and frail condition will make arrangements for home hospice (2) Hypotension: - resolved holding the below medications - Holding home Entresto, Imdur and Metoprolol may consider adding Entresto in outpatient setting, will defer to cardiology (3) Symptomatic bradycardia: - HR has been in the 40-50's on monitor, dropped to 30's overnight; his reports HR is usually between 52-55 at home, has intermittent episodes of dizziness. - Hold Metoprolol; d/c home Digoxin, hold both of these indefinitely HR improved to 50-60's, no need for pacemaker (4) Pressure ulcer of right foot, stage 3: - Has been following with the wound clinic. - Wound is healing, no erythema or discharge noted on exam. Change dressing every other day. (5) Acute renal failure: ROBERT resolved, likely due to hypotension, diuretics, poor oral intake Cr down to 1.2 today - Hold IV fluids due to systolic CHF. - Holding home ACEI and Entresto in setting of ARF no role for Lisinopril may resume Entresto as outpatient (6) Stage III chronic kidney disease: - Renally dose all meds. (7) Coronary artery disease: - S/p CABG x4 in 2001 2001 at [facility]. Saphenous vein to LAD. Saphenous vein to 2 left circumflex marginal branches. Saphenous vein graft to PDA. - Cardiac cath in 2002 with stent placed in proximal RCA and left circumflex artery. - Follows with Dr. Miranda; consulting cardiology as an inpatient. - EKG was negative; Trop was 0.020 then trended down. - Holding home beta margot & Entresto; continue statin and aspirin as prescribed. (8) Permanent atrial fibrillation: - A. fib, bradycardic (as low as 30's) on monitor. - Dig level was WNL; d/c med per cardiology. - Hold metoprolol due to bradycardia. - Not currently on anticoagulation therapy due to history of bleeding with bladder. (9) Systolic CHF with reduced left ventricular function, NYHA class 3: - Most recent documented echo in Mar 2013 showed EF 30-35%, multiple severe wall motion abnormalities. - Monitor net I/O's and daily weights. - Does not take daily diuretics; mild crackles in bilateral lung bases - consider low dose diuretic if BP is stable this afternoon. - Hold home Entresto and Metoprolol in setting of hypotension - plan to d/c ACEI at discharge patient is end stage heart failure, poor technical program manager prognosis, palliative care consulted (10) Chronic low back pain: - Monitored as outpatient. - Tylenol prn pain. (11) Renal artery stenosis: - S/p left renal artery stent in 2002. (12) Carotid artery stenosis: - S/p bilateral carotid endarterectomies. - Continue ASA and statin. (13) HLD (hyperlipidemia): - Continue statin as prescribed. (14) HTN (hypertension): - Hold Metoprolol, Imdur and Entresto. - Consider resuming Entresto if BP remains stable this afternoon. (15) Anemia: - Has been anemic, hgb ~11-12 at baseline. - May be related to anemia of chronic disease in setting of CKD stage III. - Will continue to monitor. (16) DVT prophylaxis: - SCDs; Heparin q12hr. Dispo: DNR palliative care consult, plan for home hospice on discharge no further work up for lung CA likely transfer to medical floor tomorrow if he remains stable likely can go home on Sat if home hospice set up Subjective patient feeling better this morning no chest pain, no dyspnea, no fever/chills eating well reviewed labs, Cr down to 1.2, CBC stable discussed with Dr. Schultz, continued to hold digoxin and beta blockers and Entresto he is concerned about patient's poor prognosis going forward, low EF at 25% he recommended palliative consultation discussed with family and patient, patient told me he would want to be a DNR, family agrees he c/o 40lb weight loss in the past year checked CT chest and abdomen/pelvis, this showed right pleural effusion with 2.8cm spiculated pleural based mass, likely neoplasm discussed results with patient and his family they would not want any type of work up, agree with home hospice d/w Adelia Kennedy with palliative care, she will follow and make arrangements for home hospice Review of Systems Review of Systems: All systems reviewed & are unremarkable except as noted in HPI & below Constitutional: + fatigue, + weakness and + weight loss (40lbs); no fever and no chills Respiratory: + cough, + dyspnea, + dyspnea on exertion and + sputum production Cardiovascular: no chest pain and no edema Gastrointestinal: no abdominal pain, no nausea, no vomiting, no constipation a nd no diarrhea/loose stools Physical Exam Constitutional: well developed and + thin; + not well nourished and no acute distress Eyes: PERRL, conjunctivae normal, anicteric sclerae ENMT: external ear and nose normal, oropharynx normal Ears: + hearing impairment Neck: trachea midline, no thyromegaly Respiratory: normal respiratory effort; no respiratory distress Auscultation: + diminished lung sounds (diffusely); no rales, no rhonchi and no wheezes Cardiovascular: Rate/Rhythm: regular rate and + irregularly irregular Heart Sounds: no murmur Extremities: normal capillary refill; no edema Gastrointestinal (Abdomen): normal bowel sounds, soft, nontender, no hepatosplenomegaly Musculoskeletal: no cyanosis or clubbing, extremities motor strength 5/5 Extremities: + cyanosis and + clubbing Skin: no rashes, warm and dry Neurologic: patellar DTR's 2+ bilat, sensation intact and PERRL, EOMI, accommodation nl, no face palsy, no dysarthria Psychiatric: A+Ox3, euthymic affect Lymphatic: no cervical or axillary lymphadenopathy Results & Data Vital Signs (Past 12 Hours) Vital Signs Temp Pulse Resp BP Pulse Ox 01/05/19 07:07 36.3 C L 49 L 15 128/74 98 01/05/19 04:13 36.4 C L 55 L 23 126/75 100 Laboratory Results Laboratory Results - last 24 hr 01/05/19 01/05/19 06:11 06:11 WBC 8.22 RBC 3.97 L Hgb 12.0 L Hct 37.0 L MCV 93.2 MCH 30.2 MCHC 32.4 RDW Std Deviation 51.8 H RDW Coeff of Cathleen 15.2 H Plt Count 251 MPV 10.1 Sodium 141 Potassium 4.2 D Chloride 107 Carbon Dioxide 26 Anion Gap 8.0 BUN 40 H Creatinine 1.26 Est Cr Clr Drug Dosing 33.3 Est GFR ( Amer) 58.2 Est GFR (Non-Af Amer) 50.2 BUN/Creatinine Ratio 31.8 H Glucose 89 Calcium 8[address] chest and abdomen/pelvis, IV contrast IMPRESSION: 1. Cardiomegaly and advanced emphysema. 2. A 2.8 cm spiculated lesion is suggested in the subpleural right lower lobe. This is pathologically indeterminant but concerning for neoplasm. This could be further assessed with PET imaging or tissue sampling. 3. Small to moderate right pleural effusion with associated atelectasis. 4. There is asymmetric bladder wall thickening. The bladder mucosa appears hyperemic and there is pericystic inflammation. This could be related to chronic outlet obstruction and possibly superimposed infection. A bladder neoplasm would be impossible to exclude. Follow-up with urology is recommended. 5. A short segment of asymmetric wall thickening is suggested in the ascending colon. This is not well assessed by CT and a colonic neoplasm is not excluded. Consider colonoscopy for further assessment. 6. Cholelithiasis. 7. Additional findings as above. Medications Administered Current Inpatient Medications Acetaminophen (Tylenol) 650 mg PO Q4H PRN PRN Reason: Pain or Fever Stop: 02/01/19 16:22 Aspirin (Ecotrin Ectab) 81 mg PO QAM [facility] Stop: 02/02/19 08:59 Last Admin: 01/04/19 09:45 Dose: 81 mg Documented by: Heparin Sodium (Porcine) (Heparin Sodium (Porcine)) 5,000 units SQ Q12 [facility] Stop: 02/01/19 20:59 Last Admin: 01/04/19 20:28 Dose: 5,000 units Documented by: Ioversol (Optiray 320 100ml) 94 ml IV ONCE PRN PRN Reason: Interaction Checking Stop: 01/09/19 12:57 Last Admin: 01/05/19 12:58 Dose: 94 ml Documented by: Ondansetron HCl (Zofran) 4 mg IV Q6H PRN PRN Reason: Nausea Stop: 02/01/19 16:22 Polyethylene Glycol (Miralax Powder Packet) 17 gm PO QAM [facility] Stop: 02/02/19 08:59 Last Admin: 01/04/19 09:46 Dose: 17 gm Documented by: Simvastatin (Zocor) 40 mg PO DAILY [facility] Stop: 02/02/19 08:59 Last Admin: 01/04/19 09:45 Dose: 40 mg Documented by: PG Care Time/CCT Total # of Minutes Spent Total Time Spent: 75 Total Time Spent with Patient: Total time spent is greater than 50% in coordination of care (as documented) at patient's floor/unit and/or counseling patient: Critical Care Time: No (1) Hypotension Hypotension type: unspecified hypotension type Qualified Code(s): I95.9 - Hypotension, unspecified (2) Coronary artery disease Coronary Disease-Associated Artery/Lesion type: [place] artery [place] vs. transplanted heart: [place] heart Associated angina: without angina Qualified Code(s): I25.10 - Atherosclerotic heart disease of [place] coronary artery without angina pectoris (3) Carotid artery stenosis Laterality: bilateral Qualified Code(s): I65.23 - Occlusion and stenosis of bilateral carotid arteries (4) HLD (hyperlipidemia) Hyperlipidemia type: unspecified Qualified Code(s): E78.5 - Hyperlipidemia, unspecified (5) HTN (hypertension) Hypertension type: essential hypertension Qualified Code(s): I10 - Essential (primary) hypertension
[2019-01-05] MEDS: HEPARIN SOD 5,000 UNIT/0.5 ML VIAL SQ SCH ×2 (15:50→21:30)
[2019-01-05] MEDS: POLYETHYLENE (MIRALAX) 17 GM PACK PO SCH (15:51)
[2019-01-06] MEDS: POLYETHYLENE (MIRALAX) 17 GM PACK PO SCH (08:40)
[2019-01-06] MEDS: ASPIRIN 81 MG ECTAB PO SCH (08:47)
[2019-01-06] MEDS: SIMVASTATIN 40 MG TAB PO SCH (08:47)
[2019-01-06] MEDS: HEPARIN SOD 5,000 UNIT/0.5 ML VIAL SQ SCH ×2 (08:47→20:33)
--- NOTE | 2019-01-06 11:02 | Hospitalist Progress Note ---
Date of Service January 06, 2019 Assessment & Plan (1) Lung cancer: CT on 01/05 with right lower lobe, spiculated mass 2.8cm, pleural based associated with right pleural effusion, so most likely stage 4 lung CA patient and family not interested in any type of diagnostic work up, even thoracentesis which I agree with he does not wish for any treatment nor do I think treatment is realistic given his systolic HF and frail condition will make arrangements for home hospice, likely home tomorrow downgrade to medical floor today (2) Hypotension: - resolved holding the below medications - Holding home Entresto, Imdur and Metoprolol may consider adding Entresto in outpatient setting, will defer to cardiology (3) Symptomatic bradycardia: - HR has been in the 40-50's on monitor, dropped to 30's overnight; his reports HR is usually between 52-55 at home, has intermittent episodes of dizziness. - Hold Metoprolol; d/c home Digoxin, hold both of these indefinitely HR improved to 50-60's, no need for pacemaker transfer to medical floor today (4) Pressure ulcer of right foot, stage 3: - Has been following with the wound clinic. - Wound is healing, no erythema or discharge noted on exam. Change dressing every other day. (5) Acute renal failure: ROBERT resolved, likely due to hypotension, diuretics, poor oral intake Cr down to 1.2 yesterday no role for Lisinopril may resume Entresto as outpatient (6) Stage III chronic kidney disease: - Renally dose all meds. (7) Coronary artery disease: - S/p CABG x4 in 2001 2001 at . Saphenous vein to LAD. Saphenous vein to 2 left circumflex marginal branches. Saphenous vein graft to PDA. - Cardiac cath in 2002 with stent placed in proximal RCA and left circumflex artery. - Follows with Dr. Miranda; consulting cardiology as an inpatient. - EKG was negative; Trop was 0.020 then trended down. - Holding home beta margot & Entresto; continue statin and aspirin as prescribed. (8) Permanent atrial fibrillation: - A. fib, bradycardic (as low as 30's) on monitor. - Dig level was WNL; d/c med per cardiology. - Hold metoprolol due to bradycardia. - Not currently on anticoagulation therapy due to history of bleeding with bladder. (9) Systolic CHF with reduced left ventricular function, NYHA class 3: - Most recent documented echo in Mar 2013 showed EF 30-35%, multiple severe wall motion abnormalities. - Monitor net I/O's and daily weights. - Does not take daily diuretics; mild crackles in bilateral lung bases - consider low dose diuretic if BP is stable this afternoon. - Hold home Entresto and Metoprolol in setting of hypotension - plan to d/c ACEI at discharge patient is end stage heart failure, poor nursing home prognosis, palliative care consulted (10) Chronic low back pain: - Monitored as outpatient. - Tylenol prn pain. (11) Renal artery stenosis: - S/p left renal artery stent in 2002. (12) Carotid artery stenosis: - S/p bilateral carotid endarterectomies. - Continue ASA and statin. (13) HLD (hyperlipidemia): - Continue statin as prescribed. (14) HTN (hypertension): - Hold Metoprolol, Imdur and Entresto. - Consider resuming Entresto if BP remains stable this afternoon. (15) Anemia: - Has been anemic, hgb ~11-12 at baseline. - May be related to anemia of chronic disease in setting of CKD stage III. - Will continue to monitor. (16) Chronic respiratory failure with hypoxia: chronically on 2-3L, may need more for comfort can be titrated up at home with hospice (17) Severe protein-calorie malnutrition: encourage more intake patient is eating well in the hospital discussed that protein intake is most important (18) DVT prophylaxis: - SCDs; Heparin q12hr. Dispo: DNR palliative care consult, plan for home hospice on discharge no further work up for lung CA likely go home tomorrow Subjective patient breathing well, no chest pain he is eating really well, ate all his breakfast no fever or chills has a mild cough updated family at the bedside discussed transfer to medical floor since his HR is stable for two days Review of Systems Review of Systems: All systems reviewed & are unremarkable except as noted in HPI & below Constitutional: + fatigue and + weakness Respiratory: + dyspnea on exertion; no cough and no dyspnea Cardiovascular: no chest pain, no palpitations and no syncope Gastrointestinal: no abdominal pain, no nausea, no vomiting, no constipation and no diarrhea/loose stools Physical Exam Constitutional: well developed and + thin; + not well nourished and no acute distress Eyes: PERRL, conjunctivae normal, anicteric sclerae ENMT: external ear and nose normal, oropharynx normal Ears: + hearing impairment Neck: trachea midline, no thyromegaly Respiratory: normal respiratory effort; no respiratory distress Auscultation: + diminished lung sounds (diffusely); no rales, no rhonchi and no wheezes Cardiovascular: Rate/Rhythm: regular rate and + irregularly irregular Heart Sounds: no murmur Extremities: normal capillary refill; no edema Gastrointestinal (Abdomen): normal bowel sounds, soft, nontender, no hepatosplenomegaly Musculoskeletal: no cyanosis or clubbing, extremities motor strength 5/5 Extremities: + cyanosis and + clubbing Skin: no rashes, warm and dry Neurologic: patellar DTR's 2+ bilat, sensation intact and PERRL, EOMI, accommodation nl, no face palsy, no dysarthria Psychiatric: A+Ox3, euthymic affect Lymphatic: no cervical or axillary lymphadenopathy Results & Data Vital Signs (Past 12 Hours) Vital Signs Temp Pulse Pulse Resp BP Pulse Ox 01/06/19 09:02 52 L 01/06/19 07:47 36.3 C L 67 18 150/78 H 01/06/19 04:14 36.5 C 57 L 18 126/48 L 100 01/05/19 23:38 36.6 C 67 18 117/60 93 Medications Administered Current Inpatient Medications Acetaminophen (Tylenol) 650 mg PO Q4H PRN PRN Reason: Pain or Fever Stop: 02/01/19 16:22 Aspirin (Ecotrin Ectab) 81 mg PO QAM [facility] Stop: 02/02/19 08:59 Last Admin: 01/06/19 08:47 Dose: 81 mg Documented by: Heparin Sodium (Porcine) (Heparin Sodium (Porcine)) 5,000 units SQ Q12 [facility] Stop: 02/01/19 20:59 Last Admin: 01/06/19 08:47 Dose: 5,000 units Documented by: Ioversol (Optiray 320 100ml) 94 ml IV ONCE PRN PRN Reason: Interaction Checking Stop: 01/09/19 12:57 Last Admin: 01/05/19 12:58 Dose: 94 ml Documented by: Ondansetron HCl (Zofran) 4 mg IV Q6H PRN PRN Reason: Nausea Stop: 02/01/19 16:22 Polyethylene Glycol (Miralax Powder Packet) 17 gm PO QAM [facility] Stop: 02/02/19 08:59 Last Admin: 01/06/19 08:40 Dose: 17 gm Documented by: Simvastatin (Zocor) 40 mg PO DAILY [facility] Stop: 02/02/19 08:59 Last Admin: 01/06/19 08:47 Dose: 40 mg Documented by: PG Care Time/CCT Total # of Minutes Spent Total Time Spent with Patient: Total time spent is greater than 50% in coordination of care (as documented) at patient's floor/unit and/or counseling patient: (1) Carotid artery stenosis Laterality: bilateral Qualified Code(s): I65.23 - Occlusion and stenosis of bilateral carotid arteries (2) Coronary artery disease Associated angina: without angina Coronary Disease-Associated Artery/Lesion type: [place] artery [place] vs. transplanted heart: [place] heart Qualified Code(s): I25.10 - Atherosclerotic heart disease of [place] coronary artery without angina pectoris (3) HLD (hyperlipidemia) Hyperlipidemia type: unspecified Qualified Code(s): E78.5 - Hyperlipidemia, unspecified (4) HTN (hypertension) Hypertension type: essential hypertension Qualified Code(s): I10 - Essential (primary) hypertension (5) Hypotension Hypotension type: unspecified hypotension type Qualified Code(s): I95.9 - Hypotension, unspecified
--- NOTE | 2019-01-06 13:02 | Palliative Care Progress Note ---
Date of Service January 06, 2019 Assessment & Plan (1) Goals of care, counseling/discussion: -Patient feels about the same today-- no new complaints. -Son Shorty at bedside. Shorty states that the family is aware of the CT results from yesterday. As far as he knows, there will be no plans for biopsy, treatment, aggressive measures. The focus is on comfort. -Patient's coming in later today, will try to return to room. I do think it would be okay for case management to follow up at this point and talk to family about discharge plans as I did speak with patient and family yesterday about hospice and they were interested. -Palliative care will continue to follow. POLST form would be helpful prior to discharge. (2) Hypotension: (3) Acute renal failure: (4) Symptomatic bradycardia: (5) Chronic systolic CHF (congestive heart failure): (6) Shortness of breath: Subjective Saw patient this morning with son Shorty at bedside. not here yet. Patient appears comfortable and denies pain or SOB. Review of Systems Review of Systems: + anorexia and + weight loss no dysphagia + cough and + dyspnea on exertion; no hemoptysis no chest pain and no edema no abdominal pain and no nausea no pain + memory loss no anxiety Physical Exam Constitutional: + thin, + cachectic and + frail appearing ENMT: Ears: + hearing impairment Respiratory: normal respiratory effort Auscultation: + diminished lung sounds Cardiovascular: RRR, no murmur, no edema Vessels: dorsalis pedis pulses present (weak) Gastrointestinal (Abdomen): Inspection/Auscultation: abdomen normal to inspection and normal bowel sounds Percussion/Palpation: abdomen soft Neurologic: moves all extremities and awake Psychiatric: Orientation: alert and oriented x 3 Insight: + limited insight Results & Data Vital Signs (Past 12 Hours) Vital Signs Temp Pulse Pulse Resp BP Pulse Ox 01/06/19 12:13 36.4 C L 86 18 148/92 H 94 01/06/19 09:02 52 L 01/06/19 07:47 36.3 C L 67 18 150/78 H 01/06/19 04:14 36.5 C 57 L 18 126/48 L 100 Time Spent Midlevel 35 minutes with >50% of the time spent at bedside with patient and family discussing condition and GOC. (1) Hypotension Hypotension type: unspecified hypotension type Qualified Code(s): I95.9 - Hypotension, unspecified
[2019-01-07 07:46] VITALS: TEMP 97.5; O2SAT 100
[2019-01-07] MEDS: HEPARIN SOD 5,000 UNIT/0.5 ML VIAL SQ SCH (08:57)
[2019-01-07] MEDS: POLYETHYLENE (MIRALAX) 17 GM PACK PO SCH (08:57)
[2019-01-07] MEDS: ASPIRIN 81 MG ECTAB PO SCH (08:57)
[2019-01-07] MEDS: SIMVASTATIN 40 MG TAB PO SCH (08:57)
--- NOTE | 2019-01-07 09:20 | Palliative Care Progress Note ---
Date of Service January 07, 2019 Assessment & Plan (1) Goals of care, counseling/discussion: -Patient sitting in the bedside chair in no apparent distress. -Patient and son, Shorty presented to the bedside. Plan for discharge today. -Patient initially chose [facility], but today was adamant that they would like a Hospice referral placed to [facility]. -The family has made this decision because of equipment and DME affiliation with [facility] and they are very comfortable with [facility] and would like to continue this. -The patient's plans on taking him home in her vehicle when discharged today. She has appropriate quantity of oxygen for the ride home. -I spoke with case management regarding the change in hospice request and a new referral has been placed. The family is comfortable with the hospice agency meeting her at home vs coming to the hospital if needed. -I did complete a POLST form with the patients signing indicating: DNR/DNI, comfort measures only, trial abx and no artificial nutrition or hydration. The patients was given the original POLST form. -Plan for discharge today once Hospice plan is arranged. -PPS: 30% (2) Hypotension: (3) Acute renal failure: (4) Symptomatic bradycardia: (5) Chronic systolic CHF (congestive heart failure): (6) Shortness of breath: Subjective Saw patient this morning and no family was at bedside initially. patient was eating breakfast. Appears comfortable and in no apparent distress. patient denies SOB. Family, including and son presented to the bedside later on and we met and had a discussion. Please see A/P for further details. Review of Systems Review of Systems: Pt denies CP, palpitations Pt denies SOB Pt denies N/V/D Constitutional: + anorexia and + weight loss Neurologic: + memory loss Physical Exam Constitutional: + ill appearing and comfortable Respiratory: does not use accessory muscles Auscultation: + diminished lung sounds Cardiovascular: RRR, no murmur, no edema Gastrointestinal (Abdomen): normal bowel sounds, soft, nontender, no hepatosplenomegaly Skin: no rashes, warm and dry Psychiatric: A+Ox3, euthymic affect Insight: + limited insight Judgement: + limited judgement Results & Data Vital Signs (Past 12 Hours) Vital Signs Temp Pulse Resp BP Pulse Ox 01/07/19 07:39 36.4 C L 53 L 18 118/72 100 10/01/19 23:35 36.3 C L 66 20 123/64 98 PG Care Time/CCT Total # of Minutes Spent Total Time Spent with Patient: Total time spent is greater than 50% in coordination of care (as documented) at patient's floor/unit and/or counseling patient: 35 Time Spent Midlevel Total time spent 35 minutes with > 50% of that time spent assessing the patient and discussing goals of care, including completing a POLST form with the family. (1) Hypotension Hypotension type: unspecified hypotension type Qualified Code(s): I95.9 - Hypotension, unspecified
--- NOTE | 2019-01-07 11:36 | Discharge Summary ---
Date of Service January 07, 2019 Admission HPI Per Admitting Provider Mr. Bell is an 88 year old male with past medical history of CAD s/p CABG x 4 in 2001, chronic systolic CHF, A. fib, HTN, HLD, Carotid artery stenosis, bladder cancer, renal artery stenosis, chronic back pain with multiple compression fractures, osteoarthritis, dementia who presented to the wound clinic today for routine evaluation of right foot wound. He has been following with the wound clinic frequently for right foot wound; previous culture was positive for MRSA, Enterococcus and Pseudomonas in August 2018. History was obtained from his , who was present at bedside. She reports his SBP was in the 60's at the wound clinic; she was instructed to bring him to the ER. Pt. has been complaining of dizziness at home and intermittently will put his head down due to symptoms. He also has chills and mild shortness of breath with exertion. He has not reported URI symptoms, headache, cough, chest pain, increased lower extremity edema, abd pain, constipation or diarrhea, dysuria or hematuria. ER course: Blood pressure was initially 78/38; readings improved without IV fluid hydration. U/a was negative. CXR showed right lung base opacities that have progressed from previous studies, concerning for PNA vs. atelectasis. Creatinine level was mildly elevated, other lab work with no significant abnormalities. Will admit for further observation of hypotension and infectious work up. 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 with associated pleural effusion Discharge Exam Constitutional well developed and + thin; + not well nourished and no acute distress Eyes PERRL, conjunctivae normal, anicteric sclerae ENMT external ear and nose normal, oropharynx normal Ears: + hearing impairment Neck trachea midline, no thyromegaly Respiratory normal respiratory effort; no respiratory distress Auscultation: + diminished lung sounds (diffusely); no rales, no rhonchi and no wheezes Cardiovascular Rate/Rhythm: regular rate and + irregularly irregular Heart Sounds: no murmur Extremities: normal capillary refill; no edema Gastrointestinal (Abdomen) normal bowel sounds, soft, nontender, no hepatosplenomegaly Musculoskeletal no cyanosis or clubbing, extremities motor strength 5/5 Extremities: + cyanosis and + clubbing Skin no rashes, warm and dry Neurologic patellar DTR's 2+ bilat, sensation intact and PERRL, EOMI, accommodation nl, no face palsy, no dysarthria Psychiatric A+Ox3, euthymic affect Lymphatic no cervical or axillary lymphadenopathy Discharge Data Allergies Allergy/AdvReac Type Severity Reaction Status Date / Time codeine AdvReac Mild CONFUSION Verified 01/02/19 12:16 Consultations 01/02/19 14:00 ED Decision to Admit Stat 01/02/19 16:23 Consult Cardiology Routine Consult Case Management - Discharge Planning Routine 01/05/19 11:41 Consult Palliative Care Routine Ordered Studies 01/05/19 12:09 CT chest w con Routine 01/05/19 12:14 CT abd pelvis IV con only Routine Hospital Course (1) Lung cancer: CT on 01/05 with right lower lobe, spiculated mass 2.8cm, pleural based associated with right pleural effusion, so most likely stage 4 lung CA patient and family not interested in any type of diagnostic work up, even thoracentesis which I agree with he does not wish for any treatment nor do I think treatment is realistic given his systolic HF and frail condition will make arrangements for home hospice, home today (2) Hypotension: - resolved holding the below medications - Holding home Entresto, Imdur and Metoprolol may consider adding Entresto in outpatient setting, will defer to cardiology he may or may not follow up with cardiology depending on how he does on hospice (3) Symptomatic bradycardia: - d/c Metoprolol; d/c Digoxin, will never resume these stopped Aricept as well for possible contribution to bradycardia HR improved to 50-60's (4) Pressure ulcer of right foot, stage 3: - Has been following with the wound clinic. - Wound is healing, no erythema or discharge noted on exam. Change dressing every other day. can continue to follow with wound clinic if it provides comfort (5) Acute renal failure: ROBERT resolved, likely due to hypotension, diuretics, poor oral intake no role for Lisinopril may resume Entresto as outpatient but defer to cardiology, unlikely to give him any benefit since he is on hospice (6) Stage III chronic kidney disease: - Renally dose all meds. (7) Coronary artery disease: - S/p CABG x4 in [address] [facility]. Saphenous vein to LAD. Saphenous vein to 2 left circumflex marginal branches. Saphenous vein graft to PDA. - Cardiac cath in 2002 with stent placed in proximal RCA and left circumflex artery. - Follows with Dr. Miranda; consulting cardiology as an inpatient. - EKG was negative; Trop was 0.020 then trended down. - Holding home beta margot & Entresto continue aspirin, stop statin since he is on hospice (8) Permanent atrial fibrillation: - A. fib, bradycardic (as low as 30's) on monitor. - Dig level was WNL; d/c med per cardiology. - Hold metoprolol due to bradycardia. - Not currently on anticoagulation therapy due to history of bleeding with bladder. (9) Systolic CHF with reduced left ventricular function, NYHA class 3: - Most recent documented echo in Mar 2013 showed EF 30-35%, multiple severe wall motion abnormalities patient is end stage heart failure, poor termite exterminator prognosis, palliative care consulted home on hospice (10) Chronic low back pain: - Monitored as outpatient. - Tylenol prn pain. (11) Renal artery stenosis: - S/p left renal artery stent in 2002. (12) Carotid artery stenosis: - S/p bilateral carotid endarterectomies. - Continue ASA and statin. (13) HLD (hyperlipidemia): - Continue statin as prescribed. (14) HTN (hypertension): - Hold Metoprolol, Imdur and Entresto. - Consider resuming Entresto if BP remains stable this afternoon. (15) Anemia: - Has been anemic, hgb ~11-12 at baseline. - May be related to anemia of chronic disease in setting of CKD stage III. - Will continue to monitor. (16) Chronic respiratory failure with hypoxia: chronically on 2-3L, may need more for comfort can be titrated up at home with hospice (17) Severe protein-calorie malnutrition: encourage more intake patient is eating well in the hospital discussed that protein intake is most important (18) DVT prophylaxis: - SCDs; Heparin q12hr. Dispo: DNR palliative care consult, plan for home hospice on discharge no further work up for lung CA Total Time Total Time Spent Total Time Spent (In Minutes): 32 minutes Total Time Includes: Examination of the Patient, Discharge Planning, Medication Reconciliation, Communication With Other Providers (discussed with palliative care) and Other (discussed with family) Discharge Plan Discharge Items Patient Disposition: Hospice - Home Reason For Visit: HYPOTENSION Discharge Diagnosis: Lung cancer, likely stage 4 given the pleural effusion Chronic systolic heart failure Low blood pressure and slow heart rate due to medications Condition on Discharge: Good Goals: hospice care at home Activity: Resume your previous activity Non-emergency contact: Primary Care Provider and Onion Topper Call non-emergency contact if: you have any medication questions, your symptoms worsen and your pain is not controlled Follow-up/Referrals: Jason Mackenzie MD [Primary Care Provider] - Diet: Heart Healthy Addtl Attending Provider Instructions: Medications: multiple medications have been stopped due to low blood pressure, low heart rate I have cut down on medications since you will be on hospice - DIGOXIN, METOPROLOL, LISINOPRIL, IMDUR: stop these medications permanently as they caused low blood pressure and low heart rate - ENTRESTO: continue to hold this medication, there is a chance that Dr. Miranda may resume at lower dose in the future - SIMVASTATIN: stop this medication as it is not essential since you are on hospice - DONEPEZIL: stop this medication, used to treat mild dementia but it can cause slow heart rates Right lower lobe lung cancer, likely stage 4 because it is associated with a pleural effusion explains weight loss, weakness, shortness of breath will not pursue any type of work up or treatment as this would be more detrimental to your health, likely cause you suffering fortunately there is no pain associated with your disease continue to use oxygen for relief, can increase oxygen if needed Systolic heart failure: poor prognosis with low EF of 20-25% unfortunately you cannot tolerate medications because of low blood pressure and low heart rate will stop all of these medications you have been stable off of them for 5 days you can follow up with Dr. Miranda if you would like in 2 weeks but not necessary if you are comfortable on hospice Hospice services will start at home goal is your comfort, treat symptoms instead of disease process Pending Studies at Discharge: No Stand-Alone Forms: [facility] Medications and DC Order Prescriptions: Continued triamcinolone acetonide 0.1 % ointment 1 appln topical BID Qty: 1 RF: 0 polyethylene glycol 3350 17 gram/dose powder 8.5 gm PO QAM RF: 0 aspirin [Aspirin Low Dose] 81 mg Tablet,Delayed Release (Dr/Ec) 81 mg PO QAM RF: 0 Slow-Mag 71.5 mg Tablet,Delayed Release (Dr/Ec) 71.5 mg PO QAM RF: 0 Ciprodex 0.3-0.1 % Drops,Suspension 2 drp OTIC (EAR) BID RF: 0 Discontinued metoprolol tartrate 25 mg tablet 12.5 mg PO DAILY Qty: 30 RF: 5 Entresto 49-51 mg tablet 1 tab PO BID Qty: 60 RF: 5 simvastatin [Zocor] 40 mg tablet 40 mg PO DAILY Qty: 90 RF: 0 isosorbide mononitrate 120 mg tablet extended release 24 hr 120 mg PO QAM Qty: 90 RF: 1 cholecalciferol (vitamin D3) [Vitamin D3] 1,000 unit Tablet 1,000 unit PO DAILY RF: 0 digoxin 125 mcg tablet 125 mcg PO QAM RF: 0 donepezil 5 mg Tablet 5 mg PO QAM RF: 0 lisinopril 5 mg tablet 5 mg PO DAILY RF: 0 Discharge Orders: Discharge Order (Routine); Ordered 01/07/19 Ordered By: Scott Mathias Admission Data Admit Date/Time: 01/03/19 10:07 Attending Provider: Scott Mathias Admit Provider: Fatou Edwards Primary Care Provider: Jason Mackenzie Other Providers: Sidney Salguero ; Parveen Khanna ; Laura Angulo
[2019-01-07 11:41] VITALS: BP 131/73; PULSE 60
== END 2019-01-07 13:31 | disposition hospice, home (50) | DRG 180 ==
LOC: 2S 10:58 → ED 10:58 → SUATTDRO 15:02 → 2S 15:34 → SUATTDRO 01-03 10:07 → 3N 01-06 11:55